=== PATIENT | male | born 1975 | race Caucasian/White ===

== ENCOUNTER 2018-02-05 15:35 | Emergency (ER) | payer OTHER, SELFPAY ==
--- NOTE | 2018-02-05 15:35 | DT_ITS ---
This patient was seen during an EMR downtime February 03, 2018 - February 10, 2018. This patient may have a combination of paper and electronic documentation or all paper documentation. All documentation is viewable within the e-chart portion of [employer] for each patient visit.
== END 2018-02-05 16:16 | disposition home or self-care (01) ==
LOC: ED 02-07 09:52
PROVIDERS: Emergency Provider Emergency Medicine; Family Provider Family Medicine; PCP Family Medicine
DX: M54.41 Lumbago with sciatica, right side (principal)
CPT/HCPCS: 99283

== ENCOUNTER 2018-06-30 18:30 | Outpatient (RCR) | payer OTHER, SELFPAY ==
--- NOTE | 2018-03-03 14:55 | HP.PTEVAL_ITS ---
Patient's Visit Information ALESSANDRO ALEMAN is a 43 year old M referred to Physical Therapy by Sindi Carson, with a diagnosis of HNP lumbar; acute lumbar radiculopathy. Date of Evaluation: 03/03/18 Physical Therapist: Kathy Guerrero, PT - Visit Plan Frequency: 2x /Week Duration: 4 Weeks Plan: Physician Order on 02/27/18: Begin lumbar isometrics. Advance ROM as tolerated after 3 weeks. Wean from lumbar brace as tolerated. Theraband HEP. Patient plans to go on vacation for a week and would like HEP to perform while gone at next visit. Therapeutic exercises and activities targeting BLE, core and low back strength, endurance and range of motion. Gait training for improved ambulation and stair negotiation. Modalities and Manual as needed to decrease pain and increase ROM. Incorporate HEP to promote maintainence and independence. - Subjective Subjective: Patient presents in therapy with low back pain secondary to lumbar microdiscectomy bilateraly L4-L5 on 02/11/2018. Patient states he is feeling well and not really pain much more than numbness, tingling feeling in RLE down to toes and heel. He is ambulating with a cane in L hand but prior to surgery he was independent no AD. States he takes tylenol occasionally and ices twice a day for pain. Reports he is having difficulty walking, stair climbing and sitting for longer duraitons. - Pain low back Pain Intensity (Out of 10): 2 Pain Intensity Range: Unrated Comment: sensation feels odd not painful - Objective Appearance: Wearing lumbar supportive brace. Posture: Sitting slouched on mat with trunk lean toward the left; Static standing with cane and trunk shifted to the left and hips toward the right. Gait: Patient ambulating with a heel/toe foot progression with cane in left hand with trunk lean toward left and hips toward the right. Educated on getting taller cane; Stair negotiation step to pattern with rail up/down with right foot leading down and left foot leading up. Strength: RLE grossly 4/5 strength except hip abduction 4-/5, knee flexion 3+/5, PF 3+/5 and knee extension 4-/5; LLE grossly 5/5 except 4/5 hip abduction and 4/5 knee flexion; core strength grossly 3+/5 and low back grossly 3+/5. Flexibility: Hamstrings moderate tightness R -25* knee extension and L -30* knee extension. ROM: Lumbar brace on during testing; Moderate limitation in all planes lumbar motion. Full ROM not tested until 3 weeks per physician order. Palpation: Tenderness to palpation along bilateral lumbar paraspinals. Bilateral ASIS equal, ischial tub equal and medial malleoli equal. - Goals Goal 1:: Patient will increase low back and core strength by 1 muscle grade for improved posture and performance with functional mobility. Goal Time Frame: 4-6 Weeks Goal 2:: Patient will increase BLE grossly 5/5 for improved functional mobility Goal Time Frame: 4-6 Weeks Goal 3:: Patient will ambulate independently with equal WB through BLE and without sensation of RLE leg giving out Goal Time Frame: 4-6 Weeks Goal 4:: Patient will increase lumbar ROM in all planes for improved mobility Goal Time Frame: 4-6 Weeks Goal 5:: Patient will increase hamstring flexibility by 10* for improved mobility Goal Time Frame: 4-6 Weeks - Rehabilitation Potential Physical Therapy Diagnosis: Muscle Weakness, Limited Range of Motion Rehabilitation Potential: Good - Anticipated Interventions Patient/Client Instruction: Educate patient on: Condition, Plan of Care For the Purpose of:: To decrease pain, To increase ROM, To improve muscle performance and motor function, To improve ability of physical actions for home/ community/work/leisure, To improve gait and locomotor functions, To increase flexibility/ROM, To improve endurance Therapeutic Exercise to Include: Strength training, Endurance training, Body mechanics, Postural training, Flexibilty training, Gait and locomotor training, Passive ROM, Active ROM, Dynamic Lumbar Stabilization For the Purpose of:: To increase ROM, To improve muscle performance and motor function, To improve ability of physical actions for home/community/work/leisure , To improve gait and locomotor functions, To increase flexibility/ROM, To improve endurance Functional Training to Include: ADL Training, Gait training For the Purpose of:: To improve muscle performance and motor function, To improve ability of physical actions for home/community/work/leisure, To improve gait and locomotor functions For the Purpose of:: To decrease pain, To increase ROM, To increase flexibility/ ROM Iontophoresis (with Dexamethozone, with Acetic acid): No - not covered For the Purpose of:: To decrease pain, To increase ROM, To increase flexibility/ ROM Thank you for the opportunity to evaluate your patient. For Medicare and Medicare HMO plans, please review the plan of care and approve it. It will need to be FAXED BACK to us at [phone] for Medicare purposes. Please let me know if there are questions or concerns regarding this plan of care. Physician Signature: Date:
--- NOTE | 2018-09-10 13:51 | HP.PTDCNRP_ITS ---
HP - Discharge Summary (1) - Patient Information ALESSANDRO ALEMAN was seen in my office for initial evaluation on 03/03/18. The following Plan of Care was established for this patient: Initial Frequency: 2x /Week Initial Duration: 4 Weeks - Anticipated Interventions Patient/Client Instruction: Educate patient on: Condition, Plan of Care For the Purpose of:: To decrease pain, To increase ROM, To improve muscle performance and motor function, To improve ability of physical actions for home/community/work/leisure, To improve gait and locomotor functions, To increase flexibility/ROM, To improve endurance Therapeutic Exercise to Include: Strength training, Endurance training, Body mechanics, Postural training, Flexibilty training, Gait and locomotor training, Passive ROM, Active ROM, Dynamic Lumbar Stabilization For the Purpose of:: To increase ROM, To improve muscle performance and motor function, To improve ability of physical actions for home/community/work/l eisure, To improve gait and locomotor functions, To increase flexibility/ROM, To improve endurance Functional Training to Include: ADL Training, Gait training For the Purpose of:: To improve muscle performance and motor function, To improve ability of physical actions for home/community/work/leisure, To improve gait and locomotor functions For the Purpose of:: To decrease pain, To increase ROM, To increase flexibility/ROM Iontophoresis (with Dexamethozone, with Acetic acid): No - not covered For the Purpose of:: To decrease pain, To increase ROM, To increase flexibility/ROM This patient was last seen in our office 06/30/18. Pertinent comments regarding their Physical therapy will appear below: Patient seen for PT for HNP ,lumbar radiculopathy which patient underwent s/p lumbar disectomy . Patient PT focused on strengthening BLE,DLS,LUMBAR ROM ,LE flexabilitY. Patient made good progess with increasing strength and improving gait,ROM for function of recovery thus is d/c. At this point I will be discontinuing this patient from physical therapy. I would be happy to see this patient again in the future if found appropriate by the physician. Thank you! Bill Rahman, PT, Cert MDT, OCS
== END 2018-06-30 19:00 | disposition home or self-care (01) ==
LOC: PT 18:30
PROVIDERS: Family Provider Family Medicine; PCP Family Medicine; Visit Provider Nurse Practitioner Acute Care
DX: M51.26 Other intervertebral disc displacement, lumbar region (principal); M54.16 Radiculopathy, lumbar region
CPT/HCPCS: 97110; 97162; 97530

== ENCOUNTER 2019-03-10 10:30 | Outpatient (RCR) | payer OTHER, SELFPAY ==
--- NOTE | 2019-01-09 07:28 | HP.PTEVAL_ITS ---
Patient's Visit Information ALESSANDRO ALEMAN is a 43 year old M referred to Physical Therapy by ALDA CasperC with a diagnosis of OTHER SPECIFIED AFTERCARE FOLLOWING SURGERY. Date of Evaluation: 01/08/19 Physical Therapist: Bill Rahman PT, Cert MDT, OCS - Visit Plan Frequency: 2x /Week Duration: 4 Weeks Plan: INTERVENTIONS PROGRESSIVE DLS,POSTURAL EX'S,LE FLEXABLITY ,G-S STRENGTHENING RIGHT - Subjective Findings: This 43 y/o male presents physical therapy with lumbar microdisectomy bilateral L4-5 on 02/11/18. Patient had PT which went well. But ,during December working on [employer] noticed next day developed soreness. So,seen Dr recommended . No diagnostics /MEDS. Recommended PT . Patient denies parathesia/tingling. Overall ,getting stronger right leg ,atlough right calf is still weak. Patient goals to gett stronger ,and prevention for director long term care.Patient symptoms affect QOL and function. SOCIAL: . VOCATION: Teacher ,coaches basketball,football - Objective POSTURE : WFL. GAIT: reciprocal pattern. NEURO: intact ,denies parathesia/tingle,reflexes 2/3. FLEXABLITY: hams mod tigh. SYMMTRIES : align. PALPATION: unremarkable. MMT: 5/5 ,except right G-S 3/5. LUMBAR ROM: flexion min loss,extension min loss,side glides min loss - Special Tests L/S Slump test left side: Negative L/S Slump test right side: Negative L/S Left Straight Leg Raise: Negative L/S Right Straight Leg Raise: Negative Lumbar Standing: Flexion - Mechanical Response: No effect Lumbar Standing: Flexion - Symptoms During Testing: No effect Lumbar Standing: Flexion - Symptoms After Testing: No effect Lumbar Standing: Extension - Mechanical Response: No effect Lumbar Standing: Extension - Symptoms During Testing: No effect Lumbar Standing: Extension - Symptoms After Testing: No effect - Goals Goal 1:: Independant with HEP. Goal Time Frame: 4-6 Weeks Goal 2:: Independant with posture/body mechanics for prophalaxis. Goal Time Frame: 4-6 Weeks Goal 3:: Patient to improve lumbar ROM for function of recovery Goal Time Frame: 4-6 Weeks Goal 4:: Patient to be d/c to prophalaxis Goal Time Frame: 4-6 Weeks Goal 5:: Patient to improve dash disability score by 5 points. Goal Time Frame: 4-6 Weeks - Rehabilitation Potential Physical Therapy Diagnosis: This lumbar microdisectomy bilateral L4-5 02/11/18 Rehabilitation Potential: Good - Anticipated Interventions Patient/Client Instruction: Educate patient on: Condition, Plan of Care For the Purpose of:: To decrease pain, To increase ROM, To improve muscle performance and motor function, To improve ability to perform ADL's, To increase tolerance to activity/condition/position, To improve ability of physical actions for home/community/work/leisure, To improve health of tissue, To decrease soft tissue restriction, To increase flexibility/ROM, To improve health and function, To improve ability to perform tasks related to life management Therapeutic Exercise to Include: Strength training, Body mechanics, Postural training, Flexibilty training, Dynamic Lumbar Stabilization For the Purpose of:: To increase ROM, To improve muscle performance and motor function, To improve ability to perform ADL's, To increase tolerance to activity/condition/position, To improve ability of physical actions for home/community/work/leisure, To improve health of tissue, To decrease soft tissue restriction, To increase flexibility/ROM, To improve ability to perform tasks related to life management Thank you for the opportunity to evaluate your patient. For Medicare and Medicare HMO plans, please review the plan of care and approve it. It will need to be FAXED BACK to us at [phone] for Medicare purposes. For Medicare only, by signing this I certify the plan of care. Please let me know if there are questions or concerns regarding this plan of care. Physician Signature: Date:
--- NOTE | 2019-03-10 11:12 | HP.PTDCSUM ---
HP - PT D/C Summary It has been my pleasure to treat ALESSANDRO ALEMAN under orders from Jihan Horner NP-C, for the diagnosis of OTHER SPECIFIED AFTERCARE FOLLOWING SURGERY for a total of 9 visit(s). Discharge Date: 03/10/19 Please see the following information for a summary of their discharge status. - Subjective Subjective: DOING WELL.. - Overall Improvement % Improvement: 100 - Objective Objective/Function: POSTURE: WFL. MMT: QUADS/HAMS/HIP 5/5,ANKLE DF 5/5,PF 4-/5. LUMBAR ROM: FLEXION MIN LOSS,EXTENSION MIN LOSS. -SLR - Goals Goal 1:: Independant with HEP. Goal Progress: Goal Met Goal 2:: Independant with posture/body mechanics for prophalaxis. Goal Progress: Goal Met Goal 3:: Patient to improve lumbar ROM for function of recovery Goal Progress: Goal Met Goal 4:: Patient to be d/c to prophalaxis Goal 5:: Patient to improve dash disability score by 5 points. - Plan Plan: D/C TO HEP - D/C Information Discharge Comments: HEP If there are questions or concerns regarding this patient's physical therapy, please feel free to call me at [phone]. Thank you for the referral of this patient. Sincerely, Bill Rahman, PT, Cert MDT, OCS
== END 2019-03-10 19:00 | disposition home or self-care (01) ==
LOC: PT 10:30
PROVIDERS: Family Provider Family Medicine; PCP Family Medicine; Referring Provider Nurse Practitioner; Visit Provider Nurse Practitioner
DX: Z48.89 Encounter for other specified surgical aftercare (principal)
CPT/HCPCS: 97110; 97161

== ENCOUNTER 2020-06-15 16:30 | Outpatient (RCR) | payer OTHER, SELFPAY ==
--- NOTE | 2020-04-27 16:52 | HP.PTEVAL ---
Patient's Visit Information ALESSANDRO ALEMAN is a 45 year old M referred to Physical Therapy by ADELFO Casper with a diagnosis of Acute LBP, R foot weakness.. Date of Evaluation: 04/27/20 Physical Therapist: Deep Narayan, DPT, OCS, CSCS - Visit Plan Frequency: 2x /Week Duration: 4-6 Weeks Plan: 2x/week fro 3-6 ... A1...LB A/PROM starting with extension but progressing to rotation and flexion with yoga stretches quickly as patient is extremely tight in LB and needs stretched. 2. rollout and stretch B HS. 3. core strength mat and gym and progress all to I. - Subjective Has chronic back problems. [place] good middle of last summer after therapy. This spring he did very little being stuck inside. Pain got worse in December for no apparent reason. hard to move. Walking made outside of R foot sore. Had therapy at [facility] over the summer. Improved in strength but still hard to stand really long as back pain kicks in low back. Will have MRI in a week or so. Pain is mostly right side back hip leg and foot. Had drop foot a couple years ago from back. Had surgery to clean up HNP 2 yrs ago but never got strength all the way back. Pain in the last week or so has been up to 8/10 in r LB. L heel gets painful newly over last 2 weeks. Worst lying in bed. R leg stillhurts much of time. Still weak in R ankle since surgery but no worse. On tylenol and steroids whcih have helped. 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 This is effected. Doig some ex from therapy in past pirifromis stretch HS stretch, bridging, pressups. - Pain R LB and hip Pain Intensity (Out of 10): 0 Pain Intensity Range: 0, 9 - Objective Walks and trasnitions slowly but I. LB AROM ext nil and tight/painful. SB tight contralaterally and min limited. Flexion slow and min limited in LB. reflexes 2/3 patella annd achilles. Sensation WNL to gross lgiht touch. - slump and SLR, but very tight R SLR vs left. Repeated PPU show improved motion quickly and NE to pain, slightly less stiff. HS max tight on R vs mod on L, -50 R and -40 L 90/90 test. Sacral sitter. - Goals Goal 1:: AROM acceptable in LB to 25 degree extension without feeling tightness. Goal Time Frame: 4-6 Weeks Goal 2:: Pain improved to 2/10 at worst and 75% improved. Goal Time Frame: 4-6 Weeks Goal 3:: Stadn at football practice 2 hours without increased pain. Goal Time Frame: 4-6 Weeks Goal 4:: Sleep without interruption and up in morning comfortably Goal Time Frame: 4-6 Weeks Goal 5:: I approp EHP to max motion and minimize future problems. Goal Time Frame: 4-6 Weeks - Rehabilitation Potential Physical Therapy Diagnosis: LBP ANR vs discal pathology Rehabilitation Potential: Fair - Anticipated Interventions Patient/Client Instruction: Educate patient on: Condition, Plan of Care For the Purpose of:: To decrease pain, To increase ROM, To improve muscle performance and motor function, To improve ability to perform ADL's, To increase tolerance to activity/condition/position Therapeutic Exercise to Include: Strength training, Body mechanics, Postural training, Passive ROM, Active ROM, Dynamic Lumbar Stabilization, Isra Exercises For the Purpose of:: To decrease pain, To increase ROM, To improve muscle performance and motor function, To increase tolerance to activity/condition/position, To improve ability of physical actions for home/community/work/leisure Manual Therapy Techniques to Include: Mobilization, Soft tissue mobilization For the Purpose of:: To decrease pain, To increase ROM, To improve muscle performance and motor function, To increase tolerance to activity/condition/position Thermo therapy (hot pack): Yes For the Purpose of:: To increase ROM Thank you for the opportunity to evaluate your patient. For Medicare and Medicare HMO plans, please review the plan of care and approve it. It will need to be FAXED BACK to us at [phone] for Medicare purposes. For Medicare only, by signing this I certify the plan of care. Please let me know if there are questions or concerns regarding this plan of care. Physician Signature: Date:
--- NOTE | 2020-06-15 16:46 | HP.PTDCSUM_ITS ---
It has been my pleasure to treat ALESSANDRO ALEMAN referred by Jihan Horner, DANYEL- Brian, with the diagnosis of Acute LBP, R foot weakness. for a total of 11 visit(s). Discharge Date: 06/15/20 Please see the following information for a summary of their discharge status. Subjective: Met with doctor Last week to melissa at MRI of bulging disc and needs surgery. Microdiscectomy on Saturday. This is a revision of old surgery. Feels like he hurt it working on [employer] this spring. Back sore afterward. Did not keep exercising after therapy last time. Therapy helped with strength but pain has been up and down. Transitioning much easier,bending still challenging. Shooting pain 7-8/10 with bending after practice. 1/10 stiffness currently. Sleep is OK. R LB and hip Pain Intensity (Out of 10): 5 left LB hip Pain Intensity (Out of 10): 1 % Improvement: 40 Objective/Function: ROM flexiona dn ext L/S very limited adn hesitant. Increased pain with flexion and stiffness with ext. SB are slow but decent ROM. Bends at back not legs to touch floor. Slowly. Walks and transitions slow and careful. R DF strength 4+vs 5 on L. Goal 1:: AROM acceptable in LB to 25 degree extension without feeling tightness. Goal Progress: Not Progressing Goal 2:: Pain improved to 2/10 at worst and 75% improved. Goal Progress: Not Progressing Goal 3:: Stadn at football practice 2 hours without increased pain. Goal 4:: Sleep without interruption and up in morning comfortably Goal Progress: Goal Met Goal 5:: I approp EHP to max motion and minimize future problems. Goal Progress: Goal Met, not heping. Plan: d/c, pt to have surgery Saturday and dean wait being sent back when appropriate. Discharge Comments: Pt to have surgery on Saturday. If there are questions or concerns regarding this patient's physical therapy, please feel free to call me at [phone]. Thank you for the referral of this patient. Sincerely, Deep Narayan, DPT, OCS, CSCS
== END 2020-06-15 19:00 | disposition home or self-care (01) ==
LOC: PT 16:30
PROVIDERS: PCP Family Medicine; Referring Provider Nurse Practitioner; Visit Provider Nurse Practitioner
DX: R29.898 Other symptoms and signs involving the musculoskeletal system (principal); M54.5 Low back pain
CPT/HCPCS: 97110; 97162; 97164

== ENCOUNTER 2020-08-09 15:00 | Outpatient (RCR) | payer OTHER, SELFPAY ==
--- NOTE | 2020-07-04 15:20 | HP.PTEVAL_ITS ---
Patient's Visit Information ALESSANDRO ALEMAN is a 45 year old M referred to Physical Therapy by Dr. Raheem Guerrero DO with a diagnosis of HNP s/p laminectomy and discectomy 06/20. Date of Evaluation: 07/04/20 Physical Therapist: Deep Narayan, DPT, OCS, CSCS - Visit Plan Frequency: 2-3x /Week Duration: 4-6 Weeks Plan: 2-3x/week for 4 weeks for... 1. LB ROM starting 07/22. 2. isometric core strength. 3. eversion strength R ankle. 4. stretch HS and quads B. 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 - Subjective Had low back surgery 06/20 laminectomy, discectomy. Precautions include no lifting one month, no bending twisting etc. Pain is none at rest. If istis to omuch and chair hits incision wrong it will hurt. No problems in legs. Has not lifted or walked. No HEP. Has brace that he is in most of day when out and about. 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 Sat most of day to today. 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 Games start early August. Basic ADls are getting done at home slowlya dn carefully. Has done some knee to chest in bed. - Pain LBP Pain Intensity (Out of 10): 0 Pain Intensity Range: 0, 3 - Objective Walks slow but steaadya dn I. Trasnfers using UE I. Steps reciprocal up and down. L/S AROM ext mod limited, flexion slow and hesitant. SB mod limited and all are painfree. HS adn quad max tight at -35 90/90 test B adn - SLR. R eversion strength is 4- vs 4+ L, otherwise ankles are 4+ B. PF heel raises tougheer on r than L but functional. Knee strength 5/5, hip strength 4+ B without pain. Incision is healed and dry, no excessive redness, heat or swelling. 2 small dry scabs. No tenderness in lumbar paraspinals or gluts today unusuallly. - Goals Goal 1:: Pt able to wrok all day at school without noticing back limitations Goal Time Frame: 4-6 Weeks Goal 2:: Pt have near full L/S aROM without pain and 90% back to normal. Goal Time Frame: 4-6 Weeks Goal 3:: I approp HEP/gym to minimize future probems. Goal Time Frame: 4-6 Weeks Goal 4:: oswestry score 10 or less LB. Goal Time Frame: 4-6 Weeks - Rehabilitation Potential Physical Therapy Diagnosis: HNP s/p surgery. Rehabilitation Potential: Good - Anticipated Interventions Patient/Client Instruction: Educate patient on: Condition, Plan of Care For the Purpose of:: To decrease pain, To increase ROM, To improve muscle performance and motor function, To improve performance and independence with ADL's, To improve ability of physical actions for home/community/work/leisure Therapeutic Exercise to Include: Strength training, Postural training, Flexibilty training, Gait and locomotor training, Neuromotor development, Passive ROM, Active ROM, Dynamic Lumbar Stabilization For the Purpose of:: To decrease pain, To increase ROM, To improve muscle performance and motor function, To increase tolerance to activity/cond ition/position, To improve ability of physical actions for home/community/work/leisure Cryotherapy (ice pack, ice massage): Yes For the Purpose of:: To decrease pain Thank you for the opportunity to evaluate your patient. For Medicare and Medicare HMO plans, please review the plan of care and approve it. It will need to be FAXED BACK to us at [phone] for Medicare purposes. For Medicare only, by signing this I certify the plan of care. Please let me know if there are questions or concerns regarding this plan of care. Physician Signature: Date:
--- NOTE | 2020-08-09 16:16 | HP.PTDCSUM ---
It has been my pleasure to treat ALESSANDRO ALEMAN referred by Dr. Raheem Guerrero DO, with the diagnosis of HNP s/p laminectomy and discectomy 06/20 for a total of 10 visit(s). Discharge Date: 08/09/20 Please see the following information for a summary of their discharge status. Subjective: Feeling pretty good today. No pain or soreness after last session. Handling practices well. LBP Pain Intensity (Out of 10): 0 % Improvement: 70 Objective/Function: Great tolerance to all of the above range of motion,strength and stabilization activtiies. 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 Goal Progress: Goal Met Goal 3:: I approp HEP/gym to minimize future probems. Goal Progress: Goal Met Goal 4:: oswestry score 10 or less LB. Goal Progress: Goal Met Plan: Continue functional core strength and ROM LB progression to tolerance. work toward pigeon pose with assist. If there are questions or concerns regarding this patient's physical therapy, please feel free to call me at [phone]. Thank you for the referral of this patient. Sincerely, Deep Narayan, DPT, OCS, CSCS
== END 2020-08-09 19:00 | disposition home or self-care (01) ==
LOC: PT 15:00
PROVIDERS: PCP Family Medicine; Referring Provider Orthopaedic Surgery; Visit Provider Orthopaedic Surgery
DX: M51.26 Other intervertebral disc displacement, lumbar region (principal); M54.16 Radiculopathy, lumbar region
CPT/HCPCS: 97110; 97161; 97164

== ENCOUNTER 2022-01-11 17:30 | Outpatient (RCR) | payer OTHER, SELFPAY ==
--- NOTE | 2021-12-22 09:58 | HP.PTEVAL_ITS ---
Patient's Visit Information ALESSANDRO ALEMAN is a 46 year old M referred to Physical Therapy by Dr. Joel Khan MD with a diagnosis of R ankle contracture, weakness.. Date of Evaluation: 12/22/21 Physical Therapist: Deep Narayan, TEODORA, OCS, CSCS - Visit Plan Frequency: 2x /Week Duration: 3 Weeks Plan: 2x/week x 3 weeks for. 1. ensure home band Df, ev OTB strength, SLS, heel raises and gastroc soleus stretch going well. 2. Please do ankle DF and eversion strength with ankle isolator, functional ankle strength and rollout R gastroc soleus and stretch. - Subjective When i am walking I walk on the outside of my foot R. It bothers him when he walks alot. saw foot doctor. H/o back problems but it is not bad right now. Stretches it alot. Doctor gave insoles to support foot. Has been on them a couple days and might help a little. Also wants therapy. Gets pain in R ankle if on it alot laterally. 5/10 and goes away with sitting. 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 enjoys walking outside and wants to be able to do that effectively. Sleep is OK. Has not done a lot of strengthening for back at school but stretches alot and uses bands. Continues to do bugs and supine prone ex core strength also. R weak ankle ever since back surgery. - Pain R ankle Pain Intensity (Out of 10): 0 Pain Intensity Range: 0, 6 - Objective Walks normal , some outside of foot WB noticeable on R vs L, no antalgia, slight weakness in pushoff R. Orthotics in and foot psoition in them is good. has slight pes cavus without orthotics and mild r hindfoot varus. Tightness obvious in gastroc and soleus R vs L. -3 active DF 0 passive DF on r vs 3 degrees on L. Full DF shows inversion moment on R. Inv and eversion adn PF ROM full B. reflexes 1/3 patella and achilles B. Strength 14 # eversion R and 30 DF PF is bearly able to heel raise on R. L side is 5/5 and R inversion 5/5. Able to walk on toes but weaker R. Patient will invert R if walks too far. - Balance/Special Test Scores Lower Extremity Functional Score: 57 - Goals Goal 1:: Walk 1 hour without ankle pain or problems with position Goal Time Frame: 4-6 Weeks Goal 2:: Patient I in management of condtiion Goal Time Frame: 4-6 Weeks Goal 3:: patient feel 75% better. Goal Time Frame: 4-6 Weeks Goal 4:: 60# DF and 22 eversion R strength to show improvement. Goal Time Frame: 2-4 Weeks - Rehabilitation Potential Physical Therapy Diagnosis: R foot walking difficulty. Rehabilitation Potential: Good - Anticipated Interventions Patient/Client Instruction: Educate patient on: Condition, Plan of Care For the Purpose of:: To decrease pain, To increase ROM, To improve muscle performance and motor function, To increase tolerance to activity/condition/posi tion Therapeutic Exercise to Include: Strength training, Flexibilty training, Passive ROM, Active ROM For the Purpose of:: To decrease pain, To increase ROM, To improve muscle performance and motor function, To increase tolerance to activity/condition/position, To improve ability of physical actions for home/community/work/leisure Manual Therapy Techniques to Include: Mobilization, Passive ROM, Soft tissue mobilization For the Purpose of:: To decrease pain, To increase ROM, To improve muscle per formance and motor function Thank you for the opportunity to evaluate your patient. For Medicare and Medicare HMO plans, please review the plan of care and approve it. It will need to be FAXED BACK to us at [phone] for Medicare purposes. For Medicare only, by signing this I certify the plan of care. Please let me know if there are questions or concerns regarding this plan of care. Physician Signature: Date:
--- NOTE | 2022-01-11 18:18 | HP.PTDCSUM ---
It has been my pleasure to treat ALESSANDRO ALEMAN referred by Dr. Joel Khan MD, with the diagnosis of R ankle contracture, weakness. for a total of 6 visit(s). Discharge Date: 01/11/22 Please see the following information for a summary of their discharge status. Subjective: Doesn't seem to be bothering him as much. Walked a couple miles today and felt better than typically.Feels a lot stronger. R ankle Pain Intensity (Out of 10): 0 % Improvement: 30 Objective/Function: 51# DF. 5# eversion. neutral Df to 0 degrees then starts to turn in. Walking well today without unusual deviations. pt happy with progress and feels like he can continue on his own. Educated on need to to take care on uneven surfaces even possibly getting brace for hiking situations. Goal 1:: Walk 1 hour without ankle pain or problems with position Goal Progress: Goal Met Goal 2:: Patient I in management of condtiion Goal Progress: Goal Met Goal 3:: patient feel 75% better. Goal Progress: Progressing Goal 4:: 60# DF and 22 eversion R strength to show improvement. Goal Progress: Progressing Plan: d/c to HEP Discharge Comments: To continue via HEP If there are questions or concerns regarding this patient's physical therapy, please feel free to call me at [phone]. Thank you for the referral of this patient. Sincerely, Deep Narayan, DPT, OCS, CSCS Balance/Gait/Functional tests - Balance/Special Test Scores Lower Extremity Functional Score: 60
== END 2022-01-11 19:00 | disposition home or self-care (01) ==
LOC: PT 17:30
PROVIDERS: PCP Family Medicine; Referring Provider Orthopaedic Surgery; Visit Provider Orthopaedic Surgery
DX: M24.571 Contracture, right ankle (principal); M21.6X1 Other acquired deformities of right foot; R29.898 Other symptoms and signs involving the musculoskeletal system
CPT/HCPCS: 97110; 97161; 97164

== ENCOUNTER → 2022-01-26 | Outpatient (CLI) | payer OTHER, SELFPAY ==
[2022-01-26 17:41] LABS: Absolute Lymphocyte Count 1.64 X10^3/uL (0.83-4.51); Absolute Neutrophil Count 2.3 X10^3/uL (2.0-7.7); Basophil# 0.04 X10^3/uL; Basophil% 0.9 % (0-1); Eosinophils% 4.3 % (0-5); Hematocrit 42.7 % (40-54); Lymphocyte # 1.64 X10^3/ul (0.83-4.51); Lymphocyte % 35.7 % (19-41); Mean Corp Hgb Conc 32.8 g/dL (32-36); Mean Corpuscular Hgb 27.7 pg (27.0-32.0); Mean Corpuscular Volume 84.6 fL (80-94); Mean Platelet Vol. 10.3 fl (6.2-12.0); Monocyte# 0.46 X10^3/uL; NRBC Flagged by Analyzer 0 % (0-5); Neutrophil # 2.25 X10^3/uL (2.7-7.7); Neutrophil % 48.9 % (47-70); Platelet Count 270 K/mm3 (150-450); RBC Distribution Width CV 13.5 % (11.6-14.6); RBC Distribution Width SD 41.4 fl (35.1-43.9); Red Blood Count 5.05 M/mm3 (4.6-6.2); White Blood Count 4.6 K/mm3 (4.4-11.0)
[2022-01-26 18:28] LABS: ALB/GLOB Ratio 1.1 RATIO (0.9-2.4); AST(SGOT) 22 U/L (15-37); Alanine Aminotransfer ALT/SGPT 36 U/L (16-61); Albumin, Serum 3.9 g/dL (3.2-5.0); Alkaline Phosphatase 40 U/L (45-117); Anion Gap 5 (5-15); BUN 23 mg/dL (7-18); BUN/Creat Ratio 18.9 RATIO (10-20); Calcium,Total 9.4 mg/dL (8.5-10.1); Chloride 108 mmol/L (98-107); Cholesterol 134 mg/dL (200); Creatinine, Serum 1.22 mg/dL (0.70-1.30); EST Glomerular Filtration Rate 67 mL/min (>60); Est Glom Filt Rate - Afr Amer 81 mL/min (>60); Globulin 3.4 g/dL (2.2-4.2); Glucose 85 mg/dL (74-106); High Density Lipoprotein 49 mg/dL; Potassium 4.5 mmol/L (3.5-5.1); Protein, Total 7.3 g/dL (6.4-8.2); Sodium Level 139 mmol/L (136-145); Thyroid Stim Hormone (TSH) 1.07 uIU/mL (0.358-3.74); Triglycerides 71 mg/dL; Very Low Density Lipoprotein 14 mg/dL (5-40)
== END | disposition home or self-care (01) ==
LOC: MFPLAB 14:29
PROVIDERS: Family Medicine; PCP Family Medicine; Referring Provider Family Medicine; Visit Provider Family Medicine
DX: Z00.00 Encounter for general adult medical examination without abnormal findings (principal)
CPT/HCPCS: 36415; 80053; 80061; 84443; 85025

== ENCOUNTER → 2023-02-05 | Outpatient (CLI) | payer OTHER, SELFPAY ==
[2023-02-05 09:56] LABS: Absolute Lymphocyte Count 1.64 X10^3/uL (0.83-4.51); Absolute Neutrophil Count 1.8 X10^3/uL (2.0-7.7); Basophil# 0.06 X10^3/uL; Basophil% 1.4 % (0-1); Eosinophil# 0.24 X10^3/uL; Eosinophils% 5.7 % (0-5); Hematocrit 45.7 % (40-54); Hemoglobin 14.7 g/dL (13.0-16.5); Lymphocyte # 1.64 X10^3/ul (0.83-4.51); Lymphocyte % 39.2 % (19-41); Mean Corp Hgb Conc 32.2 g/dL (32-36); Mean Corpuscular Hgb 27.3 pg (27.0-32.0); Mean Corpuscular Volume 84.9 fL (80-94); Mean Platelet Vol. 9.9 fl (6.2-12.0); Monocyte# 0.43 X10^3/uL; Monocyte% 10.3 % (0-10); NRBC Flagged by Analyzer 0 % (0-5); Neutrophil # 1.79 X10^3/uL (2.7-7.7); Neutrophil % 42.9 % (47-70); Platelet Count 243 K/mm3 (150-450); RBC Distribution Width CV 13.7 % (11.6-14.6); RBC Distribution Width SD 42.7 fl (35.1-43.9); Red Blood Count 5.38 M/mm3 (4.6-6.2); White Blood Count 4.2 K/mm3 (4.4-11.0)
[2023-02-05 10:41] LABS: Hemoglobin A1c 5.4 % (3.8-5.6)
[2023-02-05 10:53] LABS: ALB/GLOB Ratio 1.1 RATIO (0.9-2.4); AST(SGOT) 17 U/L (15-37); Alanine Aminotransfer ALT/SGPT 32 U/L (16-61); Albumin, Serum 3.7 g/dL (3.2-5.0); Alkaline Phosphatase 43 U/L (45-117); Anion Gap 3 (5-15); BUN 32 mg/dL (7-18); BUN/Creat Ratio 29.4 RATIO (10-20); Calcium,Total 9.3 mg/dL (8.5-10.1); Chloride 112 mmol/L (98-107); Cholesterol 150 mg/dL (200); Creatinine, Serum 1.09 mg/dL (0.70-1.30); EST Glomerular Filtration Rate 76 mL/min (>60); Est Glom Filt Rate - Afr Amer 92 mL/min (>60); Globulin 3.4 g/dL (2.2-4.2); Glucose 90 mg/dL (74-106); High Density Lipoprotein 49 mg/dL; PSA,Total - Annual Screen 4.12 ng/mL (0.00-4.00); Potassium 4.9 mmol/L (3.5-5.1); Protein, Total 7.1 g/dL (6.4-8.2); Sodium Level 141 mmol/L (136-145); Thyroid Stim Hormone (TSH) 1.21 uIU/mL (0.358-3.74); Triglycerides 90 mg/dL; Very Low Density Lipoprotein 18 mg/dL (5-40)
== END | disposition home or self-care (01) ==
LOC: MFPLAB 09:10
PROVIDERS: PCP Family Medicine; Visit Provider Family Medicine
DX: Z13.0 Encounter for screening for diseases of the blood and blood-forming organs and certain disorders involving the immune mechanism (principal); Z13.29 Encounter for screening for other suspected endocrine disorder; Z12.5 Encounter for screening for malignant neoplasm of prostate; Z13.220 Encounter for screening for lipoid disorders; Z13.1 Encounter for screening for diabetes mellitus
CPT/HCPCS: 36415; 80053; 80061; 83036; 84153; 84443; 85025; G0103

== ENCOUNTER → 2023-02-21 | Outpatient (CLI) | payer OTHER, SELFPAY | END | disposition home or self-care (01) | LOC: MFPLAB 12:22 | PROVIDERS: PCP Family Medicine; Visit Provider Family Medicine | DX: R97.20 Elevated prostate specific antigen [PSA] (principal) | CPT/HCPCS: 36415; 84153; 84154 ==

== ENCOUNTER → 2023-04-08 | Outpatient (CLI) | payer OTHER, SELFPAY ==
[2023-04-08 10:18] LABS: PSA,Total- Diagnostic 3.17 ng/mL (0.0-4.0)
[2023-04-09 12:08] LABS: PSA, Free % 18.3 % (.)
== END | disposition home or self-care (01) ==
PROVIDERS: PCP Family Medicine; Referring Provider Family Medicine; Visit Provider Family Medicine
DX: R97.20 Elevated prostate specific antigen [PSA] (principal)
CPT/HCPCS: 36415; 84153; 84154

== ENCOUNTER 2023-07-23 15:30 | Outpatient (RCR) | payer OTHER, SELFPAY ==
--- NOTE | 2023-05-13 09:52 | HP.PTEVAL ---
Patient's Visit Information Visit Information Visit Information: ALESSANDRO ALEMAN is a 48 year old M referred to Physical Therapy by LEI JACOBSON with a diagnosis of Congenital stenosis of lumbar. Date of Evaluation: 05/13/23 Physical Therapist: Deep Narayan, ALBANT, OCS, CSCS Visit Plan Frequency: 2x /Week Duration: 4-6 Weeks Plan: 2x/week for 4-6 weeks for 1. Postural focus with lumbar lordosis and towel roll to stabilize deviation in lumbar area 2. Gloria R SGIS to ext ex and progression of forces to limit symptoms and postural deviaitons, mobs as needed.(PA vs Side) 3. DLS in neutral postiion to HEP(pt already doing HS stretch , calf stretch, bridging, cat camel, PPU and R SGIS) TENS and ice if needed HEP reviewed with patinet today: R SGIS to maintain neutral spine position and at least every two hours, Posture with towel roll, activity mod to avoid sitting and standing and keep moving in upright position, avoid FW bending. Subjective Subjective: Back started hurting again recently. Always been sore stiff in am. Has been stretching every morning for years. This summer was good, Hiked in [place] and played golf all summer. 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 Getting up out of chair feels like he is sideways. LBP moved down into R leg in quad/thigh. Symptoms are worse with standing, sitting in chair is painfree. Feels crooked to stand and move. bending is problematic. Has to brace self to bend over as he is leary of pain. H/o microdiscectomy in 2017 and 2019. Both of which helped. Stretches in am include HS supine with band, ITB with band, bridges, bugs, pressups, cat /camel, gastroc stretches. Stiff in am until stretches, then worse again later in day. 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 Basic ADLs getting done slowly and stiff Pain LBP and R leg: Pain Intensity (Out of 10): 0 Pain Intensity Range: 0 and 5 Comment: 0 sitting, later in day worse. Objective Objective: L deviation in stance upon arising from chair of pelvis. Deviates L with back bending. Slow but I exit from chair, labored. Walks I into PT. Lumbar aROM ext mod limited and L deviation. SB are min limited, flexion slow and hesitant but not painful, deviates L. - SLR, - slump. Sitting posture is posteriorly tilted in pelvis and kyphotic in lumbar region until cued. [id number] 1/3 patella adn achilles Sensation LE WNL to gross light touch. strength hips 4- and knees 4+ and ankles 4+ without myotomal problems. Balance/Special Test Scores Oswestry Low Back Score: 13 Goals Goal 1:: patient walk into therapy without a L deviation Goal Time Frame: 2 Weeks Goal 2:: pain in LB 75% better and 1/10 at worst Goal Time Frame: 4-6 Weeks Goal 3:: I appropriate strength DLS and posture to manage condition Goal Time Frame: 4-6 Weeks Goal 4:: Pt able to get out of bed and chair without hesitation Goal Time Frame: 4-6 Weeks Goal 5:: oswestry score 4 or better Goal Time Frame: 4-6 Weeks Rehabilitation Potential Physical Therapy Diagnosis: LBP likely discal pathology limiting funciton and comfort. Rehabilitation Potential: Fair Anticipated Interventions Patient/Client Instruction: Educate patient on: Condition and Plan of Care For the Purpose of:: To decrease pain, To decrease swelling/inflammation, To increase ROM, To improve nutrient delivery to tissue, To improve muscle performance and motor function and To increase tolerance to activity/condition/position Therapeutic Exercise to Include: Strength training, Postural training, Flexibilty training, Passive ROM and Active ROM For the Purpose of:: To decrease pain, To decrease swelling/inflammation, To increase ROM, To improve nutrient delivery to tissue, To improve muscle performance and motor function, To improve ability of physical actions for home/community/work/leisure and To improve gait and locomotor functions Manual Therapy Techniques to Include: Mobilization and Passive ROM For the Purpose of:: To decrease pain, To increase ROM and To improve nutrient delivery to tissue TENS: Yes (LB) Cryotherapy (ice pack, ice massage): Yes For the Purpose of:: To decrease pain Text: Thank you for the opportunity to evaluate your patient. For Medicare and Medicare HMO plans, please review the plan of care and approve it. It will need to be FAXED BACK to us at [phone] for Medicare purposes. For Medicare only, by signing this I certify the plan of care. Please let me know if there are questions or concerns regarding this plan of care. Physician Signature: Date:
--- NOTE | 2023-06-26 17:00 | HP.PTREVAL ---
Re-Evaluation Intro: LEI JACOBSON, It has been my pleasure to treat ALESSANDRO ALEMAN over the last 11 visits for Congenital stenosis of lumbar. Please see the progress note below for an update on the physical therapy plan of care! Subjective Subjective: Can loosen up pretty good with side glide ex and not really limited with home activity once he does. However, sitting >5 minutes will usually make him stiff and might make him crooked although he notices this less. to Dr. Guerrero in July. once correctex, not really a problem with life. Sitting at desk can loosen up with exercises. Bending is slow and limited. Objective Objective/Function: Still crummy [posteriorly tilted pelvis and flexion moment in lumbar area in sitting in the waiting room on phone. Still R deviation slightly in stance and corrected with SGIS. Sitting multiple times today with towel roll and lordosis maintained and gets up much easier. First flexion in stand was slow and avoided R side but 10th was fast and easy and without ext deficits or SB deficits afterwards. same and new goals and fair to questionable prognosis. Pt to doctor in 6 weeks and cannot get in sooner so will continue PT until something changes there or progress halts. Plan Plan Plan: POC 2x/week for 4 weeks... 1. please get more aggressive with gym based jena and db ex for core strength in neutral spine and work to I at gym. 2. Please experiment with flexion stretches and yoga stretches for LB scarring and HS I gave him flex in standing to add to HEP today 10x in evening and PPU or eis afterwards. Montior his progress with straightness in this ex. Balance/Gait/Functional tests Balance/Special Test Scores Oswestry Low Back Score: 13 Goals Goals Goal 1:: patient walk into therapy without a L deviation Goal Time Frame: 2-4 Weeks Goal Progress: not completely, approp Goal 2:: pain in LB 75% better and 1/10 at worst Goal Time Frame: 4-6 Weeks Goal Progress: 50%, appropriate. Goal 3:: I appropriate strength DLS and posture to manage condition Goal Time Frame: 4-6 Weeks Goal Progress: needs gym, approp Goal 4:: Pt able to get out of bed and chair without hesitation Goal Time Frame: 4-6 Weeks Goal Progress: Goal Met in clinic Goal 5:: oswestry score 4 or better Goal Time Frame: 4-6 Weeks Goal Progress: Not Progressing Goal 6:: flex FW to touch toes without deviation or hesitation. Goal Time Frame: 2-4 Weeks Goal Progress: NEW GOAL Anticipated Interventions Anticipated Interventions Patient/Client Instruction: Educate patient on: Condition and Plan of Care For the Purpose of:: To decrease pain, To decrease swelling/inflammation, To increase ROM, To improve nutrient delivery to tissue, To improve muscle performance and motor function and To increase tolerance to activity/condition/position Therapeutic Exercise to Include: Strength training, Postural training, Flexibilty training, Passive ROM and Active ROM For the Purpose of:: To decrease pain, To decrease swelling/inflammation, To increase ROM, To improve nutrient delivery to tissue, To improve muscle performance and motor function, To improve ability of physical actions for home/community/work/leisure and To improve gait and locomotor functions Manual Therapy Techniques to Include: Mobilization and Passive ROM For the Purpose of:: To decrease pain, To increase ROM and To improve nutrient delivery to tissue TENS: Yes (LB) Cryotherapy (ice pack, ice massage): Yes For the Purpose of:: To decrease pain Re-Evaluation Ending Re-evaluation ending: Please do not hesitate to contact me at [phone] by phone or if you have questions or concerns regarding this new plan of care! Sincerely, Deep Narayan, TEODORA, OCS, CSCS
--- NOTE | 2023-07-23 16:16 | HP.PTDCSUM_ITS ---
Discharge Summary D/C summary: It has been my pleasure to treat ALESSANDRO ALEMAN referred by LEI JACOBSON, with the diagnosis of Congenital stenosis of lumbar for a total of 18 visit(s). Discharge Date: 07/23/23 Please see the following information for a summary of their discharge status. Subjective Subjective: Feel alot stronger. Still pain with sitting and getting up to 7/10 in am and if sits too long. Moving around feels good. Avoids bending alot. Sleeping is OK but getting up is a problem. HEP: doing all the stretching and strengthening at home. To [facility] in one week. may have another surgery/fusion which patient welcomes if it will get rid of pain. Pain LBP and R leg: Pain Intensity (Out of 10): 0 Overall Improvement % Improvement: 60 Objective Objective/Function: Sit to stand is normal but has L deviaiton upon standing from seated position. Posture is still crummy without support. A few extension in standing seem to get rid of his shift but back immediately if sits 5 minutes. most bothersome in morning. Back ext still hesitant but able and improves his ROM. Back flexion is still very hesitant and not improving. SB are not painful. Goals Goal 1:: patient walk into therapy without a L deviation Goal Progress: Not Progressing Goal 2:: pain in LB 75% better and 1/10 at worst Goal Progress: Progressing Goal 3:: I appropriate strength DLS and posture to manage condition Goal Progress: Goal Met Goal 4:: Pt able to get out of bed and chair without hesitation Goal Progress: Not Progressing Goal 5:: oswestry score 4 or better Goal Progress: Not Progressing Goal 6:: flex FW to touch toes without deviation or hesitation. Goal Progress: Not Progressing Plan Plan: d/c, pt to continue HEP of ext to loosen up and strength, f/u with doctor regarding other options due to instability in disc in back. D/C Information Discharge Comments: to doctor for next medical step. d/c sentence: If there are questions or concerns regarding this patient's physical therapy, please feel free to call me at [phone]. Thank you for the referral of this patient. Sincerely, Deep Narayan, DPT, OCS, CSCS Balance/Gait/Functional tests Balance/Special Test Scores Oswestry Low Back Score: 13 Improvement % Improvement: 60
== END 2023-07-23 19:00 | disposition home or self-care (01) ==
LOC: PT 15:30
PROVIDERS: PCP Family Medicine
DX: Q76.49 Other congenital malformations of spine, not associated with scoliosis (principal)
CPT/HCPCS: 97110; 97161; 97164; 97530

== ENCOUNTER 2023-12-26 16:30 | Outpatient (RCR) | payer OTHER, SELFPAY ==
--- NOTE | 2023-10-08 14:45 | HP.PTEVAL ---
Patient's Visit Information Visit Information Visit Information: ALESSANDRO ALEMAN is a 48 year old M referred to Physical Therapy by LEI JACOBSON with a diagnosis of s/p anterior discectomy and L45 fusion 09/13/23. Date of Evaluation: 10/08/23 Physical Therapist: Deep Narayan, DPT, OCS, CSCS Visit Plan Frequency: 2x /Week Duration: 3 Months Plan: 2x/week for up to 3 months for No bend twist or lift for first 6 weeks, careful after that. 1. isometric core strength to HEP nad teach gym UE, LE and isometric core for I. 2. HEP progression core strength and ROM when tolerated./allowed 3. Funcitonal progression, body mechanics for function. scar massage as needed. ice as needed. Subjective Subjective: 09/13/23 fusion, discectomy L45. Pain since surgery is just surgical. It has taken care of all the nonsurgical pain and numbness that was present prior. Lingering L leg pain since surgery which was not present prior as his symptoms were R legged. L leg improving. Precautions No BTL for 6 weeks. Brace is worn outside of house. Precautions: no bend twist lift. 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 HEP: none. Has been walking. did a mile yesterday, some muscle soreness in legs but not in back. has cane but not using at home. Hobbies: Hike and golf. Basic ADLs: Dresses self , struggles with socks due to bending. Bathroom I. steps are not a problem. Pain LB: Pain Intensity (Out of 10): 1 Pain Intensity Range: 0 and 2 Comment: tender anterior incision Objective Objective: Walks in with cane but does not need it. I ambulation and stiff trasnfers careful of bending and twisting but I bed and chair. steps reciprocally with one rail with some R leg weakness. Walking on toes is weaker on R. Incisions are two posterior healed well, anterior with strips in place and dry. No signs of excessive redness, heat or swelling, moderate scar tissue R post incision and anterior incision. LB AROM flexion and ext adn SB Not tested. LE strength ankles 4- R and 4L, knees 4 B, hips 4-. max tightness HS at -45 90/90 and mod in quads. Full aROM at hips and knees and ankles WFL. reflexes 2/3 patella and achilles sensation EL WNL ot gross light touch. Balance/Special Test Scores Functional Gait Assessment Score: 28 % Disability: 6.6700 Oswestry Low Back Score: 21 Goals Goal 1:: ST: 0/10 pain and I appropriate HEP for LE [id number] and postural LE strength and isometric core ex Goal Time Frame: 4-6 Weeks Goal 2:: LT: patient able to walk and climb steps without weakness or pain reciprocally without rail Goal Time Frame: 8-12 Weeks Goal 3:: Plkan to return to golf Goal Time Frame: 8-12 Weeks Goal 4:: Hike with family without pain or problems Goal Time Frame: 6-8 Weeks Goal 5:: basck oswestry 5 or lless Goal Time Frame: 8-12 Weeks Rehabilitation Potential Physical Therapy Diagnosis: pain and stiffness and weakness limiting funciton Rehabilitation Potential: Good Anticipated Interventions Patient/Client Instruction: Educate patient on: Condition For the Purpose of:: To decrease pain, To increase ROM, To improve nutrient delivery to tissue, To improve muscle performance and motor function, To increase tolerance to activity/condition/position and To improve ability of physical actions for home/community/work/leisure Therapeutic Exercise to Include: Strength training, Postural training, Flexibilty training, Passive ROM, Active ROM and Dynamic Lumbar Stabilization For the Purpose of:: To decrease pain, To increase ROM, To improve nutrient delivery to tissue, To improve muscle performance and motor function, To increase tolerance to activity/condition/position, To improve ability of physical actions for home/community/work/leisure and To improve gait and locomotor functions Manual Therapy Techniques to Include: Scar massage For the Purpose of:: To increase ROM Cryotherapy (ice pack, ice massage): Yes For the Purpose of:: To decrease pain and To decrease swelling/inflammation Text: Thank you for the opportunity to evaluate your patient. For Medicare and Medicare HMO plans, please review the plan of care and approve it. It will need to be FAXED BACK to us at [phone] for Medicare purposes. For Medicare only, by signing this I certify the plan of care. Please let me know if there are questions or concerns regarding this plan of care. Physician Signature: Date:
--- NOTE | 2023-12-05 16:48 | HP.PTREVAL_ITS ---
Re-Evaluation Intro: LEI JACOBSON, It has been my pleasure to treat ALESSANDRO ALEMAN over the last 14 visits for s/p anterior discectomy and L45 fusion 09/13/23. Please see the progress note below for an update on the physical therapy plan of care! Subjective Subjective: Back is doing really well. A little stiff in [address] a lot of walking in [place]. Exercises going well 2x/week on his own on machines and 30 min walk another day a week. Sleep OK Activities normal at home, Cautious with bending with any weight. Will see doctor next week. Has not been golfing and hesitant to swing. Objective Objective/Function: Walks normal, bends to floor easily with just HS pulling. SB and ext are min limited as expected and painfree. See goals New goal is golf swing and progression of exercises to I adding below ex in POC Good prgonosis. Plan Plan Plan: 2-3 visits to ensure progression toward goals. next session after doctor appointment: check golf swing 50% 20+x show back ext, ab machine, glut ham, shoulder press, chest press and add to HEP if doing well. Then f/u as needed. Balance/Gait/Functional tests Balance/Special Test Scores Functional Gait Assessment Score: 28 % Disability: 6.6700 Oswestry Low Back Score: 4 Goals Goals Goal 1:: ST: 0/10 pain and I appropriate HEP for LE [id number] and postural LE strength and isometric core ex Goal Time Frame: 4-6 Weeks Goal Progress: Goal Met Goal 2:: LT: patient able to walk and climb steps without weakness or pain reciprocally without rail Goal Time Frame: 8-12 Weeks Goal Progress: Goal Met Goal 3:: Plan to return to golf Goal Time Frame: 8-12 Weeks Goal Progress: Progressing, appropriate Goal 4:: Hike with family without pain or problems Goal Time Frame: 6-8 Weeks Goal Progress: Goal Met, in city. Goal 5:: basck oswestry 5 or lless Goal Time Frame: 8-12 Weeks Goal Progress: Goal Met Goal 6:: Add safely other machine exercises in gym and I without problems Goal Time Frame: 4-6 Weeks Goal Progress: NEW GOAL Anticipated Interventions Anticipated Interventions Patient/Client Instruction: Educate patient on: Condition For the Purpose of:: To decrease pain, To increase ROM, To improve nutrient delivery to tissue, To improve muscle performance and motor function, To increase tolerance to activity/condition/position and To improve ability of physical actions for home/community/work/leisure Therapeutic Exercise to Include: Strength training, Postural training, Flexibilty training, Passive ROM, Active ROM and Dynamic Lumbar Stabilization For the Purpose of:: To decrease pain, To increase ROM, To improve nutrient delivery to tissue, To improve muscle performance and motor function, To increase tolerance to activity/condition/position, To improve ability of physical actions for home/community/work/leisure and To improve gait and locomotor functions Manual Therapy Techniques to Include: Scar massage For the Purpose of:: To increase ROM Cryotherapy (ice pack, ice massage): Yes For the Purpose of:: To decrease pain and To decrease swelling/inflammation Re-Evaluation Ending Re-evaluation ending: Please do not hesitate to contact me at [phone] by phone or if you have questions or concerns regarding this new plan of care! Sincerely, Deep Narayan, DPT, OCS, CSCS
--- NOTE | 2023-12-26 17:03 | HP.PTDCSUM_ITS ---
Discharge Summary D/C summary: It has been my pleasure to treat ALESSANDRO ALEMAN referred by LEI JACOBSON, with the diagnosis of s/p anterior discectomy and L45 fusion 09/13/23 for a total of 16 visit(s). Discharge Date: 12/26/23 Please see the following information for a summary of their discharge status. Subjective Subjective: Golf swing at 50% in back yard. Pain is not a problem, 1/10 from lifting but it is transient. Gym exercises are going well and feels compre hensive. Sleep is OK. To doctor in March. Activities are pretty normal. Pain LB: Pain Intensity (Out of 10): 0 Overall Improvement % Improvement: 100 Objective Objective/Function: Lumbar extension still tight and mod limtied with some tightness in back but no pain, Lfexion is good with HS tightness, hips are tight in squatted position at about 75 degrees knee flexion, no pain. Walks well and without antalgia. Goals Goal 1:: ST: 0/10 pain and I appropriate HEP for LE [id number] and postural LE strength and isometric core ex Goal Progress: Goal Met Goal 2:: LT: patient able to walk and climb steps without weakness or pain reciprocally without rail Goal Progress: Goal Met Goal 3:: Plan to return to golf Goal Progress: Progressing, appropriate Goal 4:: Hike with family without pain or problems Goal Progress: Goal Met, in city. Goal 5:: basck oswestry 5 or lless Goal Progress: Goal Met Goal 6:: Add safely other machine exercises in gym and I without problems Goal Progress: Goal Met Plan Plan: d/c D/C Information Discharge Comments: Pt will continue 3x/week in gym, 6x week home stretch and strength and will f/u with doctor at appropriate time. d/c sentence: If there are questions or concerns regarding this patient's physical therapy, please feel free to call me at [phone]. Thank you for the referral of this patient. Sincerely, Deep Narayan, DPT, OCS, CSCS Balance/Gait/Functional tests Balance/Special Test Scores Functional Gait Assessment Score: 28 % Disability: 6.6700 Oswestry Low Back Score: 4 Improvement % Improvement: 100
== END 2023-12-26 19:00 | disposition home or self-care (01) ==
LOC: PT 16:30
PROVIDERS: PCP Family Medicine
DX: Q76.49 Other congenital malformations of spine, not associated with scoliosis (principal)
CPT/HCPCS: 97110; 97161; 97164; 97530

== ENCOUNTER → 2024-02-21 | Outpatient (CLI) | payer OTHER, SELFPAY ==
[2024-02-21 10:08] LABS: Absolute Lymphocyte Count 1.43 X10^3/uL (0.83-4.51); Absolute Neutrophil Count 3.8 X10^3/uL (2.0-7.7); Basophil# 0.04 X10^3/uL; Basophil% 0.6 % (0-1); Eosinophils% 3.1 % (0-5); Hematocrit 45.6 % (40-54); Hemoglobin 14.8 g/dL (13.0-16.5); Lymphocyte # 1.43 X10^3/ul (0.83-4.51); Lymphocyte % 22.4 % (19-41); Mean Corp Hgb Conc 32.5 g/dL (32-36); Mean Corpuscular Hgb 27.4 pg (27.0-32.0); Mean Corpuscular Volume 84.4 fL (80-94); Mean Platelet Vol. 9.5 fl (6.2-12.0); Monocyte# 0.85 X10^3/uL; Monocyte% 13.3 % (0-10); NRBC Flagged by Analyzer 0 % (0-5); Neutrophil # 3.84 X10^3/uL (2.7-7.7); Neutrophil % 60.1 % (47-70); Platelet Count 300 K/mm3 (150-450); RBC Distribution Width CV 13.4 % (11.6-14.6); RBC Distribution Width SD 41.5 fl (35.1-43.9); White Blood Count 6.4 K/mm3 (4.4-11.0)
[2024-02-21 10:38] LABS: Vitamin D,25 Hydroxy 26.6 ng/mL
[2024-02-21 11:18] LABS: ALB/GLOB Ratio 0.9 RATIO (0.9-2.4); AST(SGOT) 18 U/L (15-37); Alanine Aminotransfer ALT/SGPT 35 U/L (16-61); Albumin, Serum 3.5 g/dL (3.2-5.0); Alkaline Phosphatase 55 U/L (45-117); Anion Gap 8 (5-15); BUN 14 mg/dL (7-18); BUN/Creat Ratio 11.5 RATIO (10-20); Calcium,Total 9.3 mg/dL (8.5-10.1); Chloride 105 mmol/L (98-107); Cholesterol 167 mg/dL (200); Creatinine, Serum 1.22 mg/dL (0.70-1.30); EST Glomerular Filtration Rate 67 mL/min (>60); Est Glom Filt Rate - Afr Amer 81 mL/min (>60); Globulin 3.9 g/dL (2.2-4.2); Glucose 95 mg/dL (74-106); High Density Lipoprotein 55 mg/dL; PSA,Total - Annual Screen 3.88 ng/mL (0.00-4.00); Potassium 4.2 mmol/L (3.5-5.1); Protein, Total 7.4 g/dL (6.4-8.2); Sodium Level 138 mmol/L (136-145); Triglycerides 79 mg/dL; Very Low Density Lipoprotein 16 mg/dL (5-40)
== END | disposition home or self-care (01) ==
LOC: MTLAB 07:49
PROVIDERS: PCP Family Medicine; Referring Provider Family Medicine; Visit Provider Family Medicine
DX: Z00.00 Encounter for general adult medical examination without abnormal findings (principal); R97.20 Elevated prostate specific antigen [PSA]; Z13.1 Encounter for screening for diabetes mellitus; Z13.220 Encounter for screening for lipoid disorders
CPT/HCPCS: 36415; 80053; 80061; 82306; 84153; 85025; G0103

== ENCOUNTER → 2025-02-25 | Outpatient (CLI) | payer OTHER, SELFPAY ==
[2025-02-25 15:25] LABS: Absolute Neutrophil Count 1.8 X10^3/uL (2.0-7.7); Basophil# 0.04 X10^3/uL; Eosinophil# 0.18 X10^3/uL; Eosinophils% 4.5 % (0-5); Hematocrit 44.1 % (40-54); Hemoglobin 14.7 g/dL (13.0-16.5); Lymphocyte % 39.6 % (19-41); Mean Corp Hgb Conc 33.3 g/dL (32-36); Mean Corpuscular Hgb 27.9 pg (27.0-32.0); Mean Corpuscular Volume 83.8 fL (80-94); Mean Platelet Vol. 10.2 fl (6.2-12.0); Monocyte# 0.46 X10^3/uL; Monocyte% 11.4 % (0-10); NRBC Flagged by Analyzer 0 % (0-5); Neutrophil # 1.75 X10^3/uL (2.7-7.7); Neutrophil % 43.3 % (47-70); Platelet Count 272 K/mm3 (150-450); RBC Distribution Width CV 13.7 % (11.6-14.6); RBC Distribution Width SD 42.2 fl (35.1-43.9); Red Blood Count 5.26 M/mm3 (4.6-6.2)
[2025-02-25 15:57] LABS: ALB/GLOB Ratio 1.5 RATIO (0.9-2.4); AST(SGOT) 22 U/L (<=37); Alanine Aminotransfer ALT/SGPT 26 U/L (<=46); Albumin, Serum 4.4 g/dL (3.5-5.0); Alkaline Phosphatase 46 U/L (40-129); Anion Gap 12 (5-15); BUN 21 mg/dL (4-19); BUN/Creat Ratio 17.5 RATIO (10-20); Calcium,Total 9.9 mg/dL (7.6-11.0); Carbon Dioxide 22.7 mmol/L (21.0-32.0); Chloride 107 mmol/L (98-108); Cholesterol 147 mg/dL (<=200); Creatinine, Serum 1.18 mg/dL (0.70-1.20); EST Glomerular Filtration Rate 74 (>60); Globulin 2.8 g/dL (2.2-4.2); Glucose 89 mg/dL (70-99); High Density Lipoprotein 51 mg/dL; Low Density Lipoprotein Calc. 88 mg/dL; PSA,Total - Annual Screen 3.33 ng/mL (0.02-4.00); Potassium 4.6 mmol/L (3.3-5.1); Protein, Total 7.2 g/dL (5.9-8.4); Sodium Level 141 mmol/L (133-145); Total Bilirubin 0.56 mg/dL (0.00-1.30); Triglycerides 43 mg/dL; Very Low Density Lipoprotein 9 mg/dL (5-40); cholesterol:hdl ratio screen 2.91
--- OUTSIDE RECORDS SUMMARY | 2025-02-25 21:27 | XMS RPT_ITS | CCD ---
Author Organization [facility] Inform ion Partnership [facility] Care Team Providers Care Irrigation Engineer Name Role Phone Ada Duvall Unavailable Unavailable Bobby Cain Unavailable Unavailable EloinaAda armijo Unavailable Unavailable EloinaAda armijo Manpreet Unavailable Unavailable EloinaAda armijo Manpreet Unavailable Unavailable Bobby Cain Unavailable Unavailable Quertracey Toni Ahmad Unavailable Unavailab le Quertracey, Toni Ahmad Unavailable Unavailab martha Ferreira Toni Ahmad Unavailable Unavailab Bobby Hayward Unavailable Unavailable ORTEGA DE SANTIAGO Unavailable UnavailMAYI Abrams Unavailable Unavailable Joel Khan MD Unavailable Marianna Doll DO Primary Care Provider HALI CIFUENTES Attending Unavailable MARIANNA DOLL Primary Care Unavailable HALI CIFUENTES Attending Unavailable SONYA NERI Referring Unavailable MARIANNA DOLL Primary Care Unavailable HALI CIFUENTES Referring Unavailable SONYA NERI Attending Unavailable MARIANNA DOLL Primary Care Unavailable Bobby Cain MD Primary Care Provider BOBBY FAITH Referring Unavailable BOBBY FAITH Attending Unavailable Marianna Doll Primary Care Unavailable BOBBY FAITH Referring Unavailable BOBBY FAITH Attending Unavailable Marianna Doll Primary Care Unavailable Marianna Doll Referring Unavailable Marianna Doll Attending Unavailable Marianna Doll Primary Care Unavailable Gina Rod Referring Unavailable Gina Rod Attending Unavailable Gina Rod Primary Care Unavailable Medications Current Medications Medication Drug Class(es) Dates Sig (Normalized) Sig (Original) acetaminophen 325 mg / HYDROcodone bitartrate 5 mg oral tablet (6 sources) Opioid Agonist Start: 04-14-2017 Hydrocodone-Aceta minophen (Bath 5-325 Tablet) 1 EACH tablet Active 1 EACH PO EVERY 4 HOURS NEEDED April 14, 2017 6:51am benzonatate 100 mg oral capsule (4 sources) Non-narcotic Antitussive Start: 08-20-2022 take 200 mg by mouth three times daily Benzonatate Active 200 MG PO THREE TIMES A DAY August 20, 2022 1:00am clindamycin 300 mg oral capsule (6 sources) Lincosamide Antibacterial Start: 04-14-2017 take 300 mg by mouth four times daily Clindamycin Hcl Active 300 MG PO 4 TIMES DAILY April 14, 2017 12:00am naproxen 500 mg oral tablet (6 sources) Nonsteroidal Anti-inflammatory Drug Start: 04-14-2017 take 1 tablet by mouth twice daily Naproxen (Naprosyn) 500 MG tablet Active 500 MG PO TWICE A DAY April 14, 2017 12:00am polyethylene glycol 3350 [id number] mg / potassium chloride 2970 mg / sodium bicarbonate 6740 mg / sodium chloride 5860 mg / sodium sulfate 27906 mg powder for oral solution (1 source) Osmotic Laxative Start: 02-19-2023 End: 02-19-2023 peg 3350-Electrolytes (GOLYTELY) 236-22.74-6.74 -5.86 gram suspension Take 4,000 mL by mouth one time only for 1 dose. 1 Each 0 02/19/2023 02/19/2023 Active Comment on above: Take 4,000 mL by viola th one time only for 1 dose. Completed/Discontinued Medications Medication Drug Class(es) Dates Sig (Normalized) Sig (Original) acetaminophen 325 mg oral tablet (1 source) Start: 06-09-2020 TYLENOL 325 MG TABS 2 tablet by mouth as directed as needed acetaminophen [id number] Cassie Santoyo LPN oseltamivir 75 mg oral capsule (4 sources) Neuraminidase Inhibitor Start: 08-20-2022 End: 08-25-2022 take 1 capsule by mouth every twelve hours Oseltamivir (Tamiflu) 75 mg capsule Discontinued 75 MG PO Q12H 10 5 August 20, 2022 1:00am August 25, 2022 1:12am Problems Active Problems Problem Classification Problem Date Documented Date Episodic/Chronic Acquired foot deformities (1 source) Acquired cavovarus deformity of right foot; Translations: [Other acquired deformities of right foot] Onset: 12-18-2021 12-18-2021 Episodic Influenza (4 sources) Influenza due to Influenza A virus; Translations: [Influenza due to other identified influenza virus with other respiratory manifestations] 08-20-2022 Episodic Other acquired deformities (1 source) Equinus contracture of the ankle; Translations: [Contracture, right ankle] Onset: 12-18-2021 12-18-2021 Chronic Other and unspecified benign neoplasm (1 source) Tubular adenoma ; Translations: [Benign neoplasm, unspecified site] Episodic Other and unspecified benign neoplasm (1 source) Benign neoplasm, unspecified site; Translations: [Tubular adenoma] Onset: 03-01-2023 Episodic Other congenital anomalies (1 source) Other congenital malformations of spine, not associated with scoliosis; Translations: [Other congenital malformations of spine, not associated with scoliosis] Onset: 12-27-2023 Chronic Spondylosis; intervertebral disc disorders; other back problems (2 sources) Other intervertebral disc displacement, lumbar region; Translations: [Prolapsed lumbar intervertebral disc] Onset: 02-07-2018 02-11-2018 Chronic Unclassified (1 source) Inflammatory conditions of jaws / M27.2(ICD-10) Onset: 04-20-2017 Unclassified (1 source) Cellulitis and abscess of mouth / K12.2(ICD-10) Onset: 04-15-2017 Unclassified (1 source) Cramp and spasm / R25.2(ICD-10) Onset: 03-14-2017 Unclassified (2 sources) Sialoadenitis, unspecified / K11.20(ICD-10) Onset: 04-20-2017 Unclassified (2 sources) 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) Onset: 03-15-2017 Unclassified (2 sources) Limited mandibular range of motion / M26.52(ICD-10) Onset: 03-15-2017 Unclassified (1 source) Dental caries, unspecified / K02.9(ICD-10) Onset: 04-20-2017 Past or Other Problems Problem Classification Problem Date Documented Date Episodic/Chronic Contraceptive and procreative management (3 sources) Patient encounter status; Translations: [Encounter for sterilization] Onset: 07-17-2007 07-17-2007 Episodic Diseases of mouth; excluding dental (1 source) Sialoadenitis, unspecified; Translations: [Sialoadenitis, unspecified] Onset: 04-15-2017 Episodic Diseases of mouth; excluding dental (1 source) Cellulitis and abscess of mouth; Translations: [Cellulitis and abscess of mouth] Onset: 04-15-2017 Other aftercare (1 source) Surgical follow-up; Translations: [Encounter for other specified surgical aftercare] Onset: 02-27-2018 02-27-2018 Episodic Other connective tissue disease (1 source) Cramp and spasm; Translations: [Cramp and spasm] Onset: 03-14-2017 Episodic Other connective tissue disease (1 source) Weakness of foot; Translations: [Other symptoms and signs involving the musculoskeletal system] Onset: 04-08-2020 04-08-2020 Episodic Other screening for suspected conditions (not mental disorders or infectious disease) (4 sources) Encounter for screening for malignant neoplasm of colon; Translations: [Elevated prostate specific antigen [PSA]] Onset: 02-19-2023 Episodic Spondylosis; intervertebral disc disorders; other back problems (4 sources) Lumbago with sciatica, right side; Translations: [Sciatica, right side] Onset: 02-06-2018 01-02-2019 Episodic Unclassified (1 source) Problem Results Test Name Value Interpretation Reference Range Facility CBC W/Diff, Automatedon 02-01 Absolute Lymph 1.43 X10 3/uL Normal 0.83-4.51 [facility] Comment on above: Order Comment: Order Date: 02/19/24 Order Info: [id number] - CBCD Performed By: #### L 500.4050, L501.9910, L500.4100, L100.0100, L506.1000 #### [facility] [address] [place], [address] Absolute Neut 3.8 X10 3/uL Normal 2.0-7.7 [facility] Comment on above: Order Comment: Order Date: 02/19/24 Order Info: [id number] - CBCD Performed By: #### L 500.4050, L501.9910, L500.4100, L100.0100, L506.1000 #### [facility] [address] [place], [address] Basophils/100 WBC (Bld) 0.6 % Normal 0-1 [facility] Comment on above: Order Comment: Order Date: 02/19/24 Order Info: [id number] - CBCD Performed By: #### L 500.4050, L501.9910, L500.4100, L100.0100, L506.1000 #### [facility] [address] [place], [address] Eosinophils/100 WBC (Bld) 3.1 % Normal 0-5 [facility] Comment on above: Order Comment: Order Date: 02/19/24 Order Info: [id number]- - CBCD Performed By: #### L 500.4050, L501.9910, L500.4100, L100.0100, L506.1000 #### [facility] [address] [place], [address] Erythrocyte distribution width (RBC) [Ratio] 13.4 % Normal 11.6-14.6 [facility] Comment on above: Order Comment: Order Date: 02/19/24 Order Info: [id number]- - CBCD Performed By: #### L 500.4050, L501.9910, L500.4100, L100.0100, L506.1000 #### [facility] [address] [place], [address] Hematocrit (Bld) [Volume fraction] 45.6 % Normal 40-54 [facility] Comment on above: Order Comment: Order Date: 02/19/24 Order Info: [id number] - CBCD Performed By: #### L 500.4050, L501.9910, L500.4100, L100.0100, L506.1000 #### [facility] [address] [place], [address] Hemoglobin (Bld) [Mass/Vol] 14.8 g/dL Normal 13.0-16.5 [facility] Comment on above: Order Comment: Order Date: 02/19/24 Order Info: [id number] - CBCD Performed By: #### L 500.4050, L501.9910, L500.4100, L100.0100, L506.1000 #### [facility] [address] [place], [address] IG% 0.500 Normal 0.0-0.9 [facility] Comment on above: Order Comment: Order Date: 02/19/24 Order Info: [id number]- - CBCD Result Comment: IG% - Immature Granulocytes (promyelocytes, myelocytes and metamyelocytes) > 1% indicates that a LEFT SHIFT is Present. Performed By: #### L 500.4050, L501.9910, L500.4100, L100.0100, L506.1000 #### [facility] [address] [place], [address] Lymphocytes/100 WBC (Bld) 22.4 % Normal 19-41 [facility] Comment on above: Order Comment: Order Date: 02/19/24 Order Info: [id number] - CBCD Performed By: #### L 500.4050, L501.9910, L500.4100, L100.0100, L506.1000 #### [facility] [address] [place], [address] MCH (RBC) [Entitic mass] 27.4 pg Normal 27.0-32.0 [facility] Comment on above: Order Comment: Order Date: 02/19/24 Order Info: [id number] - CBCD Performed By: #### L 500.4050, L501.9910, L500.4100, L100.0100, L506.1000 #### [facility] [address] [place], [address] MCHC (RBC) [Mass/Vol] 32.5 g/dL Normal 32-36 [facility] Comment on above: Order Comment: Order Date: 02/19/24 Order Info: [id number] - CBCD Performed By: #### L 500.4050, L501.9910, L500.4100, L100.0100, L506.1000 #### [facility] [address] [place], [address] MCV (RBC) [Entitic vol] 84.4 fL Normal 80-94 [facility] Comment on above: Order Comment: Order Date: 02/19/24 Order Info: [id number] - CBCD Performed By: #### L 500.4050, L501.9910, L500.4100, L100.0100, L506.1000 #### [facility] [address] [place], [address] Monocytes/100 WBC (Bld) 13.3 % High 0-10 [facility] Comment on above: Order Comment: Order Date: 02/19/24 Order Info: 0184-1 - CBCD Performed By: #### L 500.4050, L501.9910, L500.4100, L100.0100, L506.1000 #### [facility] [address] [place], [address] Neutrophils/100 WBC (Bld) 60.1 % Normal 47-70 [facility] Comment on above: Order Comment: Order Date: 02/19/24 Order Info: [id number] - CBCD Performed By: #### L 500.4050, L501.9910, L500.4100, L100.0100, L506.1000 #### [facility] [address] [place], [address] Nucleated RBC (Bld) [#/Vol] 0 10*3/uL Normal 0-5 [facility] Comment on above: Order Comment: Order Date: 02/19/24 Order Info: [id number] - CBCD Performed By: #### L 500.4050, L501.9910, L500.4100, L100.0100, L506.1000 #### [facility] [address] [place], [address] Platelet mean volume (Bld) [Entitic vol] 9.5 fL Normal 6.2-12.0 [facility] Comment on above: Order Comment: Order Date: 02/19/24 Order Info: [id number] - CBCD Performed By: #### L 500.4050, L501.9910, L500.4100, L100.0100, L506.1000 #### [facility] [address] [place], [address] Platelets (Bld) [#/Vol] 300 10*3/uL Normal 150-450 [facility] Comment on above: Order Comment: Order Date: 02/19/24 Order Info: [id number]- - CBCD Performed By: #### L 500.4050, L501.9910, L500.4100, L100.0100, L506.1000 #### [facility] [address] [place], [address] RBC (Bld) [#/Vol] 5.40 10*6/uL Normal 4.6-6.2 [facility] Comment on above: Order Comment: Order Date: 02/19/24 Order Info: [id number]- - CBCD Performed By: #### L 500.4050, L501.9910, L500.4100, L100.0100, L506.1000 #### [facility] [address] [place], [address] RDW SD 41.5 fl Normal 35.1-43.9 [facility] Comment on above: Order Comment: Order Date: 02/19/24 Order Info: [id number]- - CBCD Performed By: #### L 500.4050, L501.9910, L500.4100, L100.0100, L506.1000 #### [facility] [address] [place], [address] WBC (Bld) [#/Vol] 6.4 10*3/uL Normal 4.4-11.0 [facility] Comment on above: Order Comment: Order Date: 02/19/24 Order Info: [id number] - CBCD Performed By: #### L 500.4050, L501.9910, L500.4100, L100.0100, L506.1000 #### [facility] [address] [place], [address] Comprehensive Metabolic Prof ilon 02-21-2024 Albumin [Mass/Vol] 3.5 g/dL Normal 3.2-5.0 [facility] Comment on above: Order Comment: Order Date: 02/19/24 Order Info: [id number] - CMP Order Info: [id number] - LIPID Order Info: [id number] - PSA Performed By: #### L 500.4050, L501.9910, L500.4100, L100.0100, L506.1000 #### [facility] [address] [place], [address] Albumin/Globulin [Mass ratio] 0.9 {ratio} Normal 0.9-2.4 [facility] Comment on above: Order Comment: Order Date: 02/19/24 Order Info: [id number]- - CMP Order Info: [id number] - LIPID Order Info: [id number]- - PSA Performed By: #### L 500.4050, L501.9910, L500.4100, L100.0100, L506.1000 #### [facility] [address] [place], [address] ALK P 55 U/L Normal 45-117 [facility] Comment on above: Order Comment: Order Date: 02/19/24 Order Info: [id number] - CMP Order Info: [id number] - LIPID Order Info: [id number] - PSA Performed By: #### L 500.4050, L501.9910, L500.4100, L100.0100, L506.1000 #### [facility] [address] [place], [address] ALT [Catalytic activity/Vol] 35 U/L Normal 16-61 [facility] Comment on above: Order Comment: Order Date: 02/19/24 Order Info: [id number] - CMP Order Info: [id number] - LIPID Order Info: [id number] - PSA Performed By: #### L 500.4050, L501.9910, L500.4100, L100.0100, L506.1000 #### [facility] [address] [place], [address] AST [Catalytic activity/Vol] 18 U/L Normal 15-37 [facility] Comment on above: Order Comment: Order Date: 02/19/24 Order Info: 785- - CMP Order Info: - LIPID Order Info: [id number] - PSA Performed By: #### L 500.4050, L501.9910, L500.4100, L100.0100, L506.1000 #### [facility] [address] [place], [address] Bilirubin [Mass/Vol] 0.70 mg/dL Normal 0.20-1.00 [facility] Comment on above: Order Comment: Order Date: 02/19/24 Order Info: [id number] - CMP Order Info: - LIPID Order Info: [id number] - PSA Result Comment: For patients on eltrombopag therapy, use of Dimension [place] TBIL is not recommended. Performed By: #### L 500.4050, L501.9910, L500.4100, L100.0100, L506.1000 #### [facility] [address] [place], [address] BUN/CRE 11.5 RATIO Normal 10-20 [facility] Comment on above: Order Comment: Order Date: 02/19/24 Order Info: [id number] - CMP Order Info: [id number] - LIPID Order Info: [id number] - PSA Performed By: #### L 500.4050, L501.9910, L500.4100, L100.0100, L506.1000 #### [facility] [address] [place], [address] CA,Total 9.3 mg/dL Normal 8.5-10.1 [facility] Comment on above: Order Comment: Order Date: 02/19/24 Order Info: [id number] - CMP Order Info: [id number] - LIPID Order Info: [id number] - PSA Performed By: #### L 500.4050, L501.9910, L500.4100, L100.0100, L506.1000 #### [facility] [address] [place], [address] Chloride [Moles/Vol] 105 mmol/L Normal 98-107 [facility] Comment on above: Order Comment: Order Date: 02/19/24 Order Info: [id number] - CMP Order Info: [id number] - LIPID Order Info: [id number] - PSA Performed By: #### L 500.4050, L501.9910, L500.4100, L100.0100, L506.1000 #### [facility] [address] [place], [address] CO2 [Moles/Vol] 25.0 mmol/L Normal 21.0-32.0 [facility] Comment on above: Order Comment: Order Date: 02/19/24 Order Info: 07- - CMP Order Info: [id number] - LIPID Order Info: [id number] - PSA Performed By: #### L 500.4050, L501.9910, L500.4100, L100.0100, L506.1000 #### [facility] [address] [place], [address] Creatinine [Mass/Vol] 1.22 mg/dL Normal 0.70-1.30 [facility] Comment on above: Order Comment: Order Date: 02/19/24 Order Info: [id number] - CMP Order Info: [id number] - LIPID Order Info: [id number] - PSA Result Comment: The validity of the calculated GFR GFRAA in patients over 70 years has not been determined. Clinical correlation is essential. Performed By: #### L 500.4050, L501.9910, L500.4100, L100.0100, L506.1000 #### [facility] [address] [place], [address] EST GFR - AA 81 mL/min Normal >60 [facility] Comment on above: Order Comment: Order Date: 02/19/24 Order Info: 07- - CMP Order Info: [id number] - LIPID Order Info: [id number] - PSA Result Comment: Afri can [place]ian GFR Calc Performed By: #### L 500.4050, L501.9910, L500.4100, L100.0100, L506.1000 #### [facility] [address] [place], [address] GAP 8 Normal 5-15 [facility] Comment on above: Order Comment: Order Date: 02/19/24 Order Info: 07 - CMP Order Info: [id number] - LIPID Order Info: [id number] - PSA Performed By: #### L 500.4050, L501.9910, L500.4100, L100.0100, L506.1000 #### [facility] [address] [place], [address] GFR/1.73 sq M.predicted among non-blacks MDRD (S/P/Bld) [Vol rate/Area] 67 mL/min/{1.73_m2} Normal >60 [facility] Comment on above: Order Comment: Order Date: 02/19/24 Order Info: [id number] - CMP Order Info: [id number] - LIPID Order Info: [id number] - PSA Result Comment: Non- GFR Calc Performed By: #### L 500.4050, L501.9910, L500.4100, L100.0100, L506.1000 #### [facility] [address] [place], [address] Globulin (S) [Mass/Vol] 3.9 g/dL Normal 2.2-4.2 [facility] Comment on above: Order Comment: Order Date: 02/19/24 Order Info: 07- - CMP Order Info: [id number] - LIPID Order Info: [id number] - PSA Performed By: #### L 500.4050, L501.9910, L500.4100, L100.0100, L506.1000 #### [facility] [address] [place], [address] Glucose [Mass/Vol] 95 mg/dL Normal 74-106 [facility] Comment on above: Order Comment: Order Date: 02/19/24 Order Info: [id number] - CMP Order Info: [id number] - LIPID Order Info: [id number] - PSA Performed By: #### L 500.4050, L501.9910, L500.4100, L100.0100, L506.1000 #### [facility] [address] [place], [address] Potassium [Moles/Vol] 4.2 mmol/L Normal 3.5-5.1 [facility] Comment on above: Order Comment: Order Date: 02/19/24 Order Info: 07 - CMP Order Info: [id number] - LIPID Order Info: [id number] - PSA Performed By: #### L 500.4050, L501.9910, L500.4100, L100.0100, L506.1000 #### [facility] [address] [place], [address] Sodium [Moles/Vol] 138 mmol/L Normal 136-145 [facility] Comment on above: Order Comment: Order Date: 02/19/24 Order Info: 07 - CMP Order Info: [id number] - LIPID Order Info: [id number] - PSA Performed By: #### L 500.4050, L501.9910, L500.4100, L100.0100, L506.1000 #### [facility] [address] [place], [address] T PROT 7.4 g/dL Normal 6.4-8.2 [facility] Comment on above: Order Comment: Order Date: 02/19/24 Order Info: [id number] - CMP Order Info: [id number] - LIPID Order Info: [id number] - PSA Performed By: #### L 500.4050, L501.9910, L500.4100, L100.0100, L506.1000 #### [facility] [address] [place], [address] Urea nitrogen [Mass/Vol] 14 mg/dL Normal 7-18 [facility] Comment on above: Order Comment: Order Date: 02/19/24 Order Info: [id number] - CMP Order Info: - LIPID Order Info: [id number] - PSA Performed By: #### L 500.4050, L501.9910, L500.4100, L100.0100, L506.1000 #### [facility] [address] [place], [address] Lipid Profileon 02-21-2024 Cholesterol [Mass/Vol] 167 mg/dL Normal 200 [facility] Comment on above: Order Comment: Order Date: 02/19/24 Order Info: [id number] - CMP Order Info: [id number] - LIPID Order Info: [id number] - PSA Result Comment: <200 mg/dL Desirable 200-240 mg/dL Borderline >240 mg/dL High Risk Performed By: #### L 500.4050, L501.9910, L500.4100, L100.0100, L506.1000 #### [facility] [address] [place], [address] Cholesterol in HDL [Mass/Vol] 55 mg/dL Normal [facility] Comment on above: Order Comment: Order Date: 02/19/24 Order Info: 785- - CMP Order Info: - LIPID Order Info: [id number] - PSA Result Comment: The drugs N-Acetylcysteine and Metamizole may falsely depress this assay. Reference Range HDL <40 mg/dL Low HDL Cholesterol HDL >or= 60 mg/dL High HDL Cholesterol Performed By: #### L 500.4050, L501.9910, L500.4100, L100.0100, L506.1000 #### [facility] [address] [place], [address] Cholesterol in LDL [Mass/Vol] 96 mg/dL Normal 0-130 [facility] Comment on above: Order Comment: Order Date: 02/19/24 Order Info: [id number] - CMP Order Info: [id number] - LIPID Order Info: [id number] - PSA Performed By: #### L 500.4050, L501.9910, L500.4100, L100.0100, L506.1000 #### [facility] [address] [place], [address] Cholesterol in VLDL [Mass/Vol] 16 mg/dL Normal 5-40 [facility] Comment on above: Order Comment: Order Date: 02/19/24 Order Info: [id number]- - CMP Order Info: [id number] - LIPID Order Info: [id number] - PSA Performed By: #### L 500.4050, L501.9910, L500.4100, L100.0100, L506.1000 #### [facility] [address] [place], [address] Triglyceride [Mass/Vol] 79 mg/dL Normal [facility] Comment on above: Order Comment: Order Date: 02/19/24 Order Info: [id number] - CMP Order Info: [id number] - LIPID Order Info: [id number] - PSA Result Comment: The drugs N-Acetylcysteine and Metamizole may falsely depress this assay. Serum Triglycerides Reference Interval Normal <150 mg/dL Borderline high 150 - 199 mg/dL High 200 - 499 mg/dL Very High > or = 500 mg/dL Performed By: #### L 500.4050, L501.9910, L500.4100, L100.0100, L506.1000 #### [facility] [address] [place], [address] PSA,Total - Annual Screenon 02-21-2024 PSA,TOT SCREEN 3.88 ng/mL Normal 0.00-4.00 [facility] Comment on above: Order Comment: Order Date: 02/19/24 Order Info: [id number] - CMP Order Info: [id number] - LIPID Order Info: [id number] - PSA Result Comment: This test was performed using the TPSA assay method for the [employer] chemistry system. Values obtained with different assay methods cannot be used interchangably. When changing PSA assays in the course of monitoring a patient, additional sequential testing should be carried out to confirm baseline values. Performed By: #### L 500.4050, L501.9910, L500.4100, L100.0100, L506.1000 #### [facility] [address] [place], [address] Vitamin D,25 Hydroxyon 02-20 Vitamin D 25-OH 26.6 ng/mL Normal [facility] Comment on above: Order Comment: Order Date: 02/19/24 Order Info: [id number] - VITD25 Result Comment: Lisa min D 25(OH) Status Range Deficiency <20 ng/mL (50nmol/L) Insufficiency 20 - 30 ng/mL (50 - 75 nmol/L) Sufficiency 30 - 100 ng/mL (75 - 250 nmol/L) Toxicity >100 ng/mL (>250 nmol/L) Performed By: #### L 500.4050, L501.9910, L500.4100, L100.0100, L506.1000 #### [facility] [address] [place], [address] PT D/C Summary (1)on 024 PT D/C Summary (1) [facility] Physical Therapy [address] [place] [address] / REHABILITATION SERVICES DISCHARGE SUMMARY MR#: [id number] Acct: [id number] Name: ANGELO ALEMAN Rep #: [id number] : 1975 48 From: Toma Narayan DPT, OCS, CSCS Referring : Status: REG RCR Insurance: [facility] PAY INSURANCE Discharge Summary D/C summary: It has been my pleasure to treat ANGELO ALEMAN referred by LEI JACOBSON, with the diagnosis of s/p anterior discectomy and L45 fusion 09/13/23 for a total of 16 visit(s). Discharge Date: 12/26/23 Please see the following information for a summary of their discharge status. Subjective Subjective: Golf swing at 50% in back yard. Pain is not a problem, 1/10 from lifting but it is transient. Gym exercises are going well and feels comprehensive. Sleep is OK. To doctor in March. Activities are pretty normal. Pain LB: Pain Intensity (Out of 10): 0 Overall Improvement % Improvement: 100 Objective Objective/Function: Lumbar extension still tight and mod limtied with some tightness in back but no pain, Lfexion is good with HS tightness, hips are tight in squatted position at about 75 degrees knee flexion, no pain. Walks well and without antalgia. Goals Goal 1:: ST: 0/10 pain and I appropriate HEP for LE [id number] and postural LE strength and isometric core ex Goal Progress: Goal Met Goal 2:: LT: patient able to walk and climb steps without weakness or pain reciprocally without rail Goal Progress: Goal Met Goal 3:: Plan to return to golf Goal Progress: Progressing, appropriate Goal 4:: Hike with family without pain or problems Goal Progress: Goal Met, in city. Goal 5:: basck oswestry 5 or lless Goal Progress: Goal Met Goal 6:: Add safely other machine exercises in gym and I without problems Goal Progress: Goal Met Plan Plan: d/c D/C Information Discharge Comments: Pt will continue 3x/week in gym, 6x week home stretch and strength and will f/u with doctor at appropriate time. d/c sentence: If there are questions or concerns regarding this patient's physical therapy, please feel free to call me at [phone]. Thank you for the referral of this patient. Sincerely, Toma Narayan, ALBANT, OCS, CSCS Balance/Gait/Functional tests Balance/Special Test Scores Functional Gait Assessment Score: 28 % Disability: 6.6700 Oswestry Low Back Score: 4 Improvement % Improvement: 100 12/26/23 1703 CC: Marianna Doll, DO; LEI JACOBSON EBG Signed Normal [facility] Re-Evaluation - PT (1)on Re-Evaluation - PT (1) [facility] [address] [facility] [place] [address] / REEVALUATION / MEDICARE RECERTIFICATION PHYSICAL THERAPY MR#: [id number] Acct: [id number] Name: ANGELO ALEMAN Rep #: [id number] : 1975 48 From: Toma PHOENIXT, OCS, CSCS Referring DrBin: Status:REG RCR Insurance: [facility] PAY INSURANCE Re-Evaluation Intro: LEI JACOBSON, It has been my pleasure to treat ANGELO ALEMAN over the last 14 visits for s/p anterior discectomy and L45 fusion 09/13/23. Please see the progress note below for an update on the physical therapy plan of care! Subjective Subjective: Back is doing really well. A little stiff in [address] a lot of walking in [place]. Exercises going well 2x/week on his own on machines and 30 min walk another day a week. Sleep OK Activities normal at home, Cautious with bending with any weight. Will see doctor next week. Has not been golfing and hesitant to swing. Objective Objective/Function: Walks normal, bends to floor easily with just HS pulling. SB and ext are min limited as expected and painfree. See goals New goal is golf swing and progression of exercises to I adding below ex in POC Good prgonosis. Plan Plan Plan: 2-3 visits to ensure progression toward goals. next session after doctor appointment: check golf swing 50% 20+x show back ext, ab machine, glut ham, shoulder press, chest press and add to HEP if doing well. Then f/u as needed. Balance/Gait/Functional tests Balance/Special Test Scores Functional Gait Assessment Score: 28 % Disability: 6.6700 Oswestry Low Back Score: 4 Goals Goals Goal 1:: ST: 0/10 pain and I appropriate HEP for LE [id number] and postural LE strength and isometric core ex Goal Time Frame: 4-6 Weeks Goal Progress: Goal Met Goal 2:: LT: patient able to walk and climb steps without weakness or pain reciprocally without rail Goal Time Frame: 8-12 Weeks Goal Progress: Goal Met Goal 3:: Plan to return to golf Goal Time Frame: 8-12 Weeks Goal Progress: Progressing, appropriate Goal 4:: Hike with family without pain or problems Goal Time Frame: 6-8 Weeks Goal Progress: Goal Met, in city. Goal 5:: basck oswestry 5 or lless Goal Time Frame: 8-12 Weeks Goal Progress: Goal Met Goal 6:: Add safely other machine exercises in gym and I without problems Goal Time Frame: 4-6 Weeks Goal Progress: NEW GOAL Anticipated Interventions Anticipated Interventions Patient/Client Instruction: Educate patient on: Condition For the Purpose of:: To decrease pain, To increase ROM, To improve nutrient delivery to tissue, To improve muscle performance and motor function, To increase tolerance to activity/condition/positi on and To improve ability of physical actions for home/community/work/leisu re Therapeutic Exercise to Include: Strength training, Postural training, Flexibilty training, Passive ROM, Active ROM and Dynamic Lumbar Stabilization For the Purpose of:: To decrease pain, To increase ROM, To improve nutrient delivery to tissue, To improve muscle performance and motor function, To increase tolerance to activity/condition/positi on, To improve ability of physical actions for home/community/work/leisu re and To improve gait and locomotor functions Manual Therapy Techniques to Include: Scar massage For the Purpose of:: To increase ROM Cryotherapy (ice pack, ice massage): Yes For the Purpose of:: To decrease pain and To decrease swelling/inflammation Re-Evaluation Ending Re-evaluation ending: Please do not hesitate to contact me at [phone] by phone or if you have questions or concerns regarding this new plan of care! Sincerely, Toma Narayan, DPT, OCS, CSCS 12/05/23 2421 CC: Marianna Doll DO; LEI JACOBSON EBG Signed For Medicare only, by signing this I certify the plan of care. ___ Physicians Signature Date Normal [facility] Inital Evaluation (1) - PTon 10-08-2023 Inital Evaluation (1) - PT [facility] [address] [place] [address] / REHABILITATION SERVICES INITIAL EVALUATION MR#: [id number] Acct: [id number] Name: ANGELO ALEMAN Rep #: [id number] : 1975 48 From: Toma Narayan DPT, LASHAUN, CSCS Referring DrBin: Status: REG RCR Insurance: [facility] INSURANCE Patient's Visit Information Visit Information Visit Information: ANGELO ALEMAN is a 48 year old M referred to Physical Therapy by LEI JACOBSON with a diagnosis of s/p anterior discectomy and L45 fusion 09/13/23. Date of Evaluation: 10/08/23 Physical Therapist: Toma Narayan DPT, LASHAUN, CSCS Visit Plan Frequency: 2x /Week Duration: 3 Months Plan: 2x/week for up to 3 months for No bend twist or lift for first 6 weeks, careful after that. 1. isometric core strength to HEP nad teach gym UE, LE and isometric core for I. 2. HEP progression core strength and ROM when tolerated./allowed 3. Funcitonal progression, body mechanics for function. scar massage as needed. ice as needed. Subjective Subjective: 09/13/23 fusion, discectomy L45. Pain since surgery is just surgical. It has taken care of all the nonsurgical pain and numbness that was present prior. Lingering L leg pain since surgery which was not present prior as his symptoms were R legged. L leg improving. Precautions No BTL for 6 weeks. Brace is worn outside of house. Precautions: no bend twist lift. 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 HEP: none. Has been walking. did a mile yesterday, some muscle soreness in legs but not in back. has cane but not using at home. Hobbies: Hike and golf. Basic ADLs: Dresses self , struggles with socks due to bending. Bathroom I. steps are not a problem. Pain LB: Pain Intensity (Out of 10): 1 Pain Intensity Range: 0 and 2 Comment: tender anterior incision Objective Objective: Walks in with cane but does not need it. I ambulation and stiff trasnfers careful of bending and twisting but I bed and chair. steps reciprocally with one rail with some R leg weakness. Walking on toes is weaker on R. Incisions are two posterior healed well, anterior with strips in place and dry. No signs of excessive redness, heat or swelling, moderate scar tissue R post incision and anterior incision. LB AROM flexion and ext adn SB Not tested. LE strength ankles 4- R and 4L, knees 4 B, hips 4-. max tightness HS at -45 90/90 and mod in quads. Full aROM at hips and knees and ankles WFL. reflexes 2/3 patella and achilles sensation EL WNL ot gross light touch. Balance/Special Test Scores Functional Gait Assessment Score: 28 % Disability: 6.6700 Oswestry Low Back Score: 21 Goals Goal 1:: ST: 0/10 pain and I appropriate HEP for LE [id number] and postural LE strength and isometric core ex Goal Time Frame: 4-6 Weeks Goal 2:: LT: patient able to walk and climb steps without weakness or pain reciprocally without rail Goal Time Frame: 8-12 Weeks Goal 3:: Plkan to return to golf Goal Time Frame: 8-12 Weeks Goal 4:: Hike with family without pain or problems Goal Time Frame: 6-8 Weeks Goal 5:: basck oswestry 5 or lless Goal Time Frame: 8-12 Weeks Rehabilitation Potential Physical Therapy Diagnosis: pain and stiffness and weakness limiting funciton Rehabilitation Potential: Good Anticipated Interventions Patient/Client Instruction: Educate patient on: Condition For the Purpose of:: To decrease pain, To increase ROM, To improve nutrient delivery to tissue, To improve muscle performance and motor function, To increase tolerance to activity/condition/positi on and To improve ability of physical actions for home/community/work/leisu re Therapeutic Exercise to Include: Strength training, Postural training, Flexibilty training, Passive ROM, Active ROM and Dynamic Lumbar Stabilization For the Purpose of:: To decrease pain, To increase ROM, To improve nutrient delivery to tissue, To improve muscle performance and motor function, To increase tolerance to activity/condition/positi on, To improve ability of physical actions for home/community/work/leisu re and To improve gait and locomotor functions Manual Therapy Techniques to Include: Scar massage For the Purpose of:: To increase ROM Cryotherapy (ice pack, ice massage): Yes For the Purpose of:: To decrease pain and To decrease swelling/inflammation Text: Thank you for the opportunity to evaluate your patient. For Medicare and Medicare HMO plans, please review the plan of care and approve it. It will need to be FAXED BACK to us at [phone] for Medicare purposes. For Medicare only, by signing this I certify the plan of care. Please let me know if there are questions or concerns regarding this plan of care. Physician Signature: Date: (more content not included)... [facility] 3609-06-2023 36 Received approved authorization for Zandra with Dr. Cain's office. Inpatient Auth# [id number] Surgical Auth# [id number] [facility] 3608-23-2023 36 SURGERY: CCOC FOR DR Bin CAIN OPEN & CLOSE ALIF L4-5 DATE OF SURGERY: 09/13/2023 AT 9:00AM AUTH #: ZANDRA PINEDA WITH DR. CAIN'S OFFICE IS OBTAINING AUTH FOR DR. CAIN AND DR. CURRY. PENDING [facility] PT D/C Summary (1)on 023 PT D/C Summary (1) [facility] Physical Therapy [facility] [place] [address] / REHABILITATION SERVICES DISCHARGE SUMMARY MR#: [id number] Acct: [id number] Name: ANGELO ALEMAN Rep #: [id number] : 1975 48 From: Toma Narayan DPT, OCS, CSCS Referring : Status: REG RCR Insurance: [facility]Y INSURANCE Discharge Summary D/C summary: It has been my pleasure to treat ANGELO ALEMAN referred by LEI JACOBSON, with the diagnosis of Congenital stenosis of lumbar for a total of 18 visit(s). Discharge Date: 07/23/23 Please see the following information for a summary of their discharge status. Subjective Subjective: Feel alot stronger. Still pain with sitting and getting up to 7/10 in am and if sits too long. Moving around feels good. Avoids bending alot. Sleeping is OK but getting up is a problem. HEP: doing all the stretching and strengthening at home. To [facility] in one week. may have another surgery/fusion which patient welcomes if it will get rid of pain. Pain LBP and R leg: Pain Intensity (Out of 10): 0 Overall Improvement % Improvement: 60 Objective Objective/Function: Sit to stand is normal but has L deviaiton upon standing from seated position. Posture is still crummy without support. A few extension in standing seem to get rid of his shift but back immediately if sits 5 minutes. most bothersome in morning. Back ext still hesitant but able and improves his ROM. Back flexion is still very hesitant and not improving. SB are not painful. Goals Goal 1:: patient walk into therapy without a L deviation Goal Progress: Not Progressing Goal 2:: pain in LB 75% better and 1/10 at worst Goal Progress: Progressing Goal 3:: I appropriate strength DLS and posture to manage condition Goal Progress: Goal Met Goal 4:: Pt able to get out of bed and chair without hesitation Goal Progress: Not Progressing Goal 5:: oswestry score 4 or better Goal Progress: Not Progressing Goal 6:: flex FW to touch toes without deviation or hesitation. Goal Progress: Not Progressing Plan Plan: d/c, pt to continue HEP of ext to loosen up and strength, f/u with doctor regarding other options due to instability in disc in back. D/C Information Discharge Comments: to doctor for next medical step. d/c sentence: If there are questions or concerns regarding this patient's physical therapy, please feel free to call me at [phone]. Thank you for the referral of this patient. Sincerely, Toma Narayan, ALBANT, OCS, CSCS Balance/Gait/Functional tests Balance/Special Test Scores Oswestry Low Back Score: 13 Improvement % Improvement: 60 07/23/23 1616 CC: Marianna Doll, DO; LEI JACOBSON EBG Signed Normal [facility] Re-Evaluation - PT (1)on Re-Evaluation - PT (1) [facility] [address] [facility] [place] [address] / REEVALUATION / MEDICARE RECERTIFICATION PHYSICAL THERAPY MR#: [id number] Acct: [id number] Name: ANGELO LAEMAN Rep #: [id number] : 1975 48 From: Toma Narayan DPT, OCS, CSCS Referring DrBin: Status:REG RCR Insurance: [facility] [facility] INSURANCE Re-Evaluation Intro: LEI JACOBSON, It has been my pleasure to treat ANGELO ALEMAN over the last 11 visits for Congenital stenosis of lumbar. Please see the progress note below for an update on the physical therapy plan of care! Subjective Subjective: Can loosen up pretty good with side glide ex and not really limited with home activity once he does. However, sitting >5 minutes will usually make him stiff and might make him crooked although he notices this less. to Dr. Cain in July. once correctex, not really a problem with life. Sitting at desk can loosen up with exercises. Bending is slow and limited. Objective Objective/Function: Still crummy [posteriorly tilted pelvis and flexion moment in lumbar area in sitting in the waiting room on phone. Still R deviation slightly in stance and corrected with SGIS. Sitting multiple times today with towel roll and lordosis maintained and gets up much easier. First flexion in stand was slow and avoided R side but 10th was fast and easy and without ext deficits or SB deficits afterwards. same and new goals and fair to questionable prognosis. Pt to doctor in 6 weeks and cannot get in sooner so will continue PT until something changes there or progress halts. Plan Plan Plan: POC 2x/week for 4 weeks... 1. please get more aggressive with gym based jena and db ex for core strength in neutral spine and work to I at gym. 2. Please experiment with flexion stretches and yoga stretches for LB scarring and HS I gave him flex in standing to add to HEP today 10x in evening and PPU or eis afterwards. Montior his progress with straightness in this ex. Balance/Gait/Functional tests Balance/Special Test Scores Oswestry Low Back Score: 13 Goals Goals Goal 1:: patient walk into therapy without a L deviation Goal Time Frame: 2-4 Weeks Goal Progress: not completely, approp Goal 2:: pain in LB 75% better and 1/10 at worst Goal Time Frame: 4-6 Weeks Goal Progress: 50%, appropriate. Goal 3:: I appropriate strength DLS and posture to manage condition Goal Time Frame: 4-6 Weeks Goal Progress: needs gym, approp Goal 4:: Pt able to get out of bed and chair without hesitation Goal Time Frame: 4-6 Weeks Goal Progress: Goal Met in clinic Goal 5:: oswestry score 4 or better Goal Time Frame: 4-6 Weeks Goal Progress: Not Progressing Goal 6:: flex FW to touch toes without deviation or hesitation. Goal Time Frame: 2-4 Weeks Goal Progress: NEW GOAL Anticipated Interventions Anticipated Interventions Patient/Client Instruction: Educate patient on: Condition and Plan of Care For the Purpose of:: To decrease pain, To decrease swelling/inflammation, To increase ROM, To improve nutrient delivery to tissue, To improve muscle performance and motor function and To increase tolerance to activity/condition/positi on Therapeutic Exercise to Include: Strength training, Postural training, Flexibilty training, Passive ROM and Active ROM For the Purpose of:: To decrease pain, To decrease swelling/inflammation, To increase ROM, To improve nutrient delivery to tissue, To improve muscle performance and motor function, To improve ability of physical actions for home/community/work/leisu re and To improve gait and locomotor functions Manual Therapy Techniques to Include: Mobilization and Passive ROM For the Purpose of:: To decrease pain, To increase ROM and To improve nutrient delivery to tissue TENS: Yes (LB) Cryotherapy (ice pack, ice massage): Yes For the Purpose of:: To decrease pain Re-Evaluation Ending Re-evaluation ending: Please do not hesitate to contact me at [phone] by phone or if you have questions or concerns regarding this new plan of care! Sincerely, Toma Narayan DPT, OCS, CSCS 06/26/23 1700 CC: Marianna Doll DO; LEI JACOBSON EBG Signed For Medicare only, by signing this I certify the plan of care. ___ Physicians Signature Date Normal [facility] Inital Evaluation (1) - PTon 05-13-2023 Inital Evaluation (1) - PT [facility] [address] [place] [address] / REHABILITATION SERVICES INITIAL EVALUATION MR#: [id number] Acct: [id number] Name: ANGELO ALEMAN Rep #: [id number] : 1975 48 From: Toma Narayan DPT, OCS, CSCS Referring DrBin: Status: REG RCR Insurance: [facility] INSURANCE Patient's Visit Information Visit Information Visit Information: ANGELO ALEMAN is a 48 year old M referred to Physical Therapy by LEI JACOBSON with a diagnosis of Congenital stenosis of lumbar. Date of Evaluation: 05/13/23 Physical Therapist: Toma Narayan DPT, OCS, CSCS Visit Plan Frequency: 2x /Week Duration: 4-6 Weeks Plan: 2x/week for 4-6 weeks for 1. Postural focus with lumbar lordosis and towel roll to stabilize deviation in lumbar area 2. Gloria R SGIS to ext ex and progression of forces to limit symptoms and postural deviaitons, mobs as needed.(PA vs Side) 3. DLS in neutral postiion to HEP(pt already doing HS stretch , calf stretch, bridging, cat camel, PPU and R SGIS) TENS and ice if needed HEP reviewed with patinet today: R SGIS to maintain neutral spine position and at least every two hours, Posture with towel roll, activity mod to avoid sitting and standing and keep moving in upright position, avoid FW bending. Subjective Subjective: Back started hurting again recently. Always been sore stiff in am. Has been stretching every morning for years. This summer was good, Hiked in [place] and played golf all summer. 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 Getting up out of chair feels like he is sideways. LBP moved down into R leg in quad/thigh. Symptoms are worse with standing, sitting in chair is painfree. Feels crooked to stand and move. bending is problematic. Has to brace self to bend over as he is leary of pain. H/o microdiscectomy in 2018 and 2019. Both of which helped. Stretches in am include HS supine with band, ITB with band, bridges, bugs, pressups, cat /camel, gastroc stretches. Stiff in am until stretches, then worse again later in day. 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 Basic ADLs getting done slowly and stiff Pain LBP and R leg: Pain Intensity (Out of 10): 0 Pain Intensity Range: 0 and 5 Comment: 0 sitting, later in day worse. Objective Objective: L deviation in stance upon arising from chair of pelvis. Deviates L with back bending. Slow but I exit from chair, labored. Walks I into PT. Lumbar aROM ext mod limited and L deviation. SB are min limited, flexion slow and hesitant but not painful, deviates L. - SLR, - slump. Sitting posture is posteriorly tilted in pelvis and kyphotic in lumbar region until cued. [id number] 1/3 patella adn achilles Sensation LE WNL to gross light touch. strength hips 4- and knees 4+ and ankles 4+ without myotomal problems. Balance/Special Test Scores Oswestry Low Back Score: 13 Goals Goal 1:: patient walk into therapy without a L deviation Goal Time Frame: 2 Weeks Goal 2:: pain in LB 75% better and 1/10 at worst Goal Time Frame: 4-6 Weeks Goal 3:: I appropriate strength DLS and posture to manage condition Goal Time Frame: 4-6 Weeks Goal 4:: Pt able to get out of bed and chair without hesitation Goal Time Frame: 4-6 Weeks Goal 5:: oswestry score 4 or better Goal Time Frame: 4-6 Weeks Rehabilitation Potential Physical Therapy Diagnosis: LBP likely discal pathology limiting funciton and comfort. Rehabilitation Potential: Fair Anticipated Interventions Patient/Client Instruction: Educate patient on: Condition and Plan of Care For the Purpose of:: To decrease pain, To decrease swelling/inflammation, To increase ROM, To improve nutrient delivery to tissue, To improve muscle performance and motor function and To increase tolerance to activity/condition/positi on Therapeutic Exercise to Include: Strength training, Postural training, Flexibilty training, Passive ROM and Active ROM For the Purpose of:: To decrease pain, To decrease swelling/inflammation, To increase ROM, To improve nutrient delivery to tissue, To improve muscle performance and motor function, To improve ability of physical actions for home/community/work/leisu re and To improve gait and locomotor functions Manual Therapy Techniques to Include: Mobilization and Passive ROM For the Purpose of:: To decrease pain, To increase ROM and To improve nutrient delivery to tissue TENS: Yes (LB) Cryotherapy (ice pack, ice massage): Yes For the Purpose of:: To decrease pain Text: Thank you for the opportunity to evaluate your patient. For Medicare and Medicare HMO plans, please review the plan of care and approve it. It will need to be FAXED BACK to us at [phone] for Medicare purposes. For Medicare only, by signing this I certify the plan of care. (more content not included)... Normal [facility] PSA Total+%Freeon 04-09-2023 PSA, FREE 0.50 ng/mL Normal N/A [facility] Comment on above: Result Comment: Puneet GALLAGHER methodology. Performed By: #### L 3110.0500 #### [facility] [address] [place], [address] PSA, FREE % 18.3 Normal . [facility] Comment on above: Result Comment: The table below lists the probability of prostate cancer for men with non-suspicious MARIBEL results and total PSA between 4 and 10 ng/mL, by patient age (Antonella et al, JAYE 1998, 279:1542). % Free PSA 50-64 yr 65-75 yr 0.00-10.00% 56% 55% 10.01-15.00% 24% 35% 15.01-20.00% 17% 23% 20.01-25.00% 10% 20% >25.00% 5% 9% Please note: Antonella et al did not make specific recommendations regarding the use of percent free PSA for any other population of men. Performed at: [address] [id number] Vice President Of Engineering: Koby Garcia PhD, Phone: [phone] Performed By: #### L 3110.0500 #### [facility] [address] [place], [address] PSA, TOTAL ULTR 2.730 ng/mL Normal 0.000-4.000 [facility] Comment on above: Result Comment: Puneet floyd ECLIA methodology. According to the [employer] [employer], Serum PSA should decrease and remain at undetectable levels after radical prostatectomy. The AUA defines biochemical recurrence as an initial PSA value 0.200 ng/mL or greater followed by a subsequent confirmatory PSA value 0.200 ng/mL or greater. Values obtained with different assay methods or kits cannot be used interchangeably. Results cannot be interpreted as absolute evidence of the presence or absence of malignant disease. Performed By: #### L 3110.0500 #### [facility] [address] [place], [address] No Panel InformationOrdered By: Marianna Doll on 04-08-2023 Percent Free Prostate Specific Ag 0.50 ng/mL N/A [facility] Comment on above: Megan ECLIA methodol ogy. Prostate Specific Ag, Ultra-Sensitv 2.730 ng/mL 0.000-4.000 [facility] Comment on above: Megan ECLIA methodol ogy.According to the [employer] [employer], Serum PSAshould decrease and remain at undetectable levels afterradical prostatectomy. The AUA defines biochemicalrecurrence as an initial PSA value 0.200 ng/mL or greaterfollowed by a subsequent confirmatory PSA value 0.200 ng/mLor greater. Values obtained with different assay methods orkits cannot be used interchangeably. Results cannot beinterpreted as absolute evidence of the presence or absenceof malignant disease. Prostate Specific Antigen Total 3.17 ng/mL 0.0-4.0 [facility] Comment on above: This test was perfor med using the TPSA assay method for the[employer]eg[employer] technologies chemistry system. Values obtained with differentassay methods cannot be used interchangably.When changing PSA assays in the course of monitoring apatient, additional sequential testing should be carriedout to confirm baseline values. PSA,Total- Diagnosticon 08-0 PSA, DIAGNOSTIC 3.17 ng/mL Normal 0.0-4.0 [facility] Comment on above: Order Comment: Order Date: 03/04/23 Order Info: [id number] - PSAD Result Comment: This test was performed using the TPSA assay method for the [employer] chemistry system. Values obtained with different assay methods cannot be used interchangably. When changing PSA assays in the course of monitoring a patient, additional sequential testing should be carried out to confirm baseline values. Performed By: #### L 501.9940 #### [facility] [address] [place], [address] Serum or plasma free prostat e specific antigen/total prostate specific antigen ratioOrdered By: Marianna Doll on 04-08-2023 Free PSA/Total PSA [Mass fraction] 18.3 % . [facility] Comment on above: The table below list s the probability of prostate cancer formen with non-suspicious MARIBEL results and total PSA between4 and 10 ng/mL, by patient age (Antonella et al, JAYE 1998,279:1542). % Free PSA 50-64 yr 65-75 yr 0.00-10.00% 56% 55% 10.01-15.00% 24% 35% 15.01-20.00% 17% 23% 20.01-25.00% 10% 20% >25.00% 5% 9%Please note: Antonella et al did not make specific recommendations regarding the use of percent free PSA for any other population of men.Performed at: [facility] [id number] Director: Koby aGrcia PhD, Phone: [phone] Colonoscopyon 02-22-2023 Colonoscopy [facility] Gastrointestinal Endoscopy Patient Name: Angelo Aleman Procedure Date: 02/22/2023 8:00 AM Date of : 1975 Admit Type: Outpatient Age: 48 Gender: Male Note Status: Finalized Procedure: Colonoscopy Indications: Screening for colorectal malignant neoplasm Providers: Sonya Neri MD Patient Profile: Refer to note in patient chart for documentation of history and physical. Last Colonoscopy: none. The patient's first colonoscopy is today. Referring Physician: Hali Cifuentes (pa) (Referring ), Marianna Doll (Referring ) Medicines: Midazolam 7 mg IV, Fentanyl 100 micrograms IV, Diphenhydramine 50 mg IV Complications: No immediate complications. Requesting Provider: Procedure: Pre-Anesthesia Assessment: - Prior to the procedure, a History and Physical was performed, and patient medications and allergies were reviewed. The patient is competent. The risks and benefits of the procedure and the sedation options and risks were discussed with the patient. All questions were answered and informed consent was obtained. Patient identification and proposed procedure were verified by the physician in the pre-procedure area. Mental Status Examination: alert and oriented. Airway Examination: normal oropharyngeal airway and neck mobility. Respiratory Examination: clear to auscultation. CV Examination: normal. Prophylactic Antibiotics: The patient does not require prophylactic antibiotics. Prior Anticoagulants: The patient has taken no anticoagulant or antiplatelet agents. ASA Grade Assessment: II - A patient with mild systemic disease. After reviewing the risks and benefits, the patient was deemed in satisfactory condition to undergo the procedure. The anesthesia plan was to use moderate sedation / analgesia (conscious sedation). Immediately prior to administration of medications, the patient was re-assessed for adequacy to receive sedatives. The heart rate, respiratory rate, oxygen saturations, blood pressure, adequacy of pulmonary ventilation, and response to care were monitored throughout the procedure. The physical status of the patient was re-assessed after the procedure. After I obtained informed consent, the scope was passed under direct vision. Throughout the procedure, the patient's blood pressure, pulse, and oxygen saturations were monitored continuously. The Colonoscope was introduced through the anus and advanced to the cecum, identified by the appendiceal orifice, ileocecal valve and palpation. The colonoscopy was performed without difficulty. The patient tolerated the procedure well. The quality of the bowel preparation was suboptimal. There was still retained fecal material which required lavage and aspiration to visualize the cobos adequately. This was done, but took some time, however, the cobos were visualized adequately. The terminal ileum, the appendiceal orifice and the rectum were photographed. Moderate Sedation: The administration of moderate sedation was initiated at 08:36 AM. Moderate (conscious) sedation was personally administered by the endoscopist. The following parameters were monitored: oxygen saturation, heart rate, blood pressure, respiratory rate, EKG, adequacy of pulmonary ventilation, and response to care. Total physician intraservice time was 27 minutes. Findings: The perianal and digital rectal examinations were normal. Non-bleeding internal hemorrhoids were found. A 6 to 9 mm polyp was found in the rectum. The polyp was sessile. The polyp was removed with a hot snare. Resection and retrieval were complete. Verification of patient identification for the specimen was done by the nurse. Estimated blood loss was minimal. Impression: - Non-bleeding internal hemorrhoids. - One 6 to 9 mm polyp in the rectum, removed with a hot snare. Resected and retrieved. Recommendation: - Repeat colonoscopy date to be determined after pending pathology results are reviewed for surveillance. - Follow up with Hali Cifuentes PA-C via televisit for discussion of pathology results and determination of timing of future endoscopies - Patient has a contact number available for emergencies. The signs and symptoms of potential delayed complications were discussed with the patient. Return to normal activities tomorrow. Written discharge instructions were provided to the patient. - Continue present medications. - Resume previous diet. Procedure Code(s): --- Professional --- 98490, Colonoscopy, flexible; with removal of tumor(s), polyp(s), or other lesion(s) by snare technique 94984, 59, Moderate sedation services provided by the same physician or other qualified health wound care center consultant performing the diagnostic or therapeutic service that the sedation supports, requiring the presence of an independent trained observer to assist in the monitoring of the patient's level of consc (more content not included)... Normal [facility] HISTORY PHYSICALon HISTORY PHYSICAL HNO ID: [id number] Author: Sonya Neri MD Service: General Surgery Author Type: Physician Type: HANDP Filed: 02/22/2023 7:48 AM Note Text: HISTORY AND PHYSICAL Angelo Aleman 1975 REFERRING PHYSICIAN: No ref. provider found CHIEF COMPLAINT: Consult (colonoscopy) HPI: The patient is a 48 year old male referred for endoscopy. Angelo notes no colon complaints. Patient denies any change in bowel habits, weight changes, blood in stools, black tarry stools or abdominal pain. Denies family history of colon issues. The patient notes no upper GI complaints. Angelo has not undergone prior endoscopy. Patient denies chest pain, shortness of breath or recent hospitalizations. Denies problems with sedation in the past. PAST MEDICAL HISTORY History reviewed. No pertinent past medical history. PAST SURGICAL HISTORY PAST SURGICAL HISTORY Procedure Laterality Date PAST SURGICAL HISTORY OF 03/2017 right jaw surgery PT ED ORTHOPAEDICS 2017 and 2019 VASECTOMY 2010 CURRENT MEDICATIONS No current outpatient medications on file. No current facility-administered medications for this visit. ALLERGIES: Patient has no known allergies. PERSONAL HISTORY: SOCIAL HISTORY Social History Tobacco Use Smoking status: Never Smokeless tobacco: Never Vaping Use Vaping Use: Never used Substance Use Topics Alcohol use: No Drug use: Never FAMILY HISTORY: FAMILY HISTORY FAMILY HISTORY Problem Relation Age of Onset Asthma Mother No Known Problems Father REVIEW OF SYMPTOMS: The review of systems data was entered by the nurse and reviewed by ri Nursing Notes: Kaykay Scanlon LPN 02/19/2023 1:04 PM Signed REVIEW OF SYSTEMS: General: The patient denies fatigue, denies weight loss, denies weight gain, denies feeling hot, and denies feelings of cold. Eyes: The patient denies glaucoma, denies eye injury/surgery, does not wear glasses or contacts. Ear/Nose/Throat: The patient denies allergies, denies hayfever, denies ear infections, and denies bloody noses. Cardiovascular: The patient denies chest pain, denies heart disease, denies high blood pressure,denies cardiac stent, denies prior heart attack, denies irregular heart beat, denies high cholesterol, denies poor circulation, denies heart failure, other cardiac issues, denies claudication, denies cold feet, denies peripheral arterial stent. Respiratory: The patient denies tuberculosis, denies pneumonia, denies frequent cough, denies pulmonary embolism, denies shortness of breath, and denies coughing up blood. Gastrointestinal: The patient denies difficulty swallowing, denies acid reflux, denies ulcers, denies vomiting, denies jaundice/hepatitis, denies gallbladder problems, denies black or tarry stools, denies hemorrhoids, denies bleeding from rectum, denies diverticulitis, denies constipation, denies diarrhea, denies loss of stool control, and denies hernias. Kidney/Bladder: The patient denies kidney stones, denies urine infections, and denies bloody urine. Skin: The patient denies a history of skin cancer, denies bleeding/changing moles, and denies a history of skin rash. Neurologic: The patient denies a history of epilepsy/convulsions, denies headaches, denies head/spinal injuries, and denies stroke/TIA. Psychiatric: The patient denies psychiatric medications, denies depression, and denies voices, denies substance abuse. Endocrine: The patient denies thyroid disorders, denies diabetes, and denies hormonal problems. Hematologic: The patient denies a history of bruising, denies bleeding, and denies anemia, denies blood clots. Infections: The patient denies a history of measles and mumps, denies rheumatic fever, and denies sexually transmitted diseases. Musculoskeletal: The patient denies back pain/injury, NOTES back problems, denies sciatica, denies knee/foot trouble, denies arthritis, or denies gout. When was patient's last Mammogram screening? N/A Last Colonoscopy: no prior Kaykay Scanlon LPN I have confirmed and edited as necessary, the PFSH and ROS obtained by others. Hali Cifuentes PA-C PHYSICAL EXAMINATION: General: The patient is 48 year old male, well nourished, well hydrated in no acute distress. The patient is oriented to time, place, and person. VITALS: Blood pressure 118/82, pulse 84, temperature 36.3 ?C (97.4 ?F), height 195.6 cm (6' 5), weight 125.9 kg (277 lb 9.6 oz), SpO2 98 %. Body mass index is 32.92 kg/m?. HEENT: Normal cephalic, ataumatic, pupils are equally round, sclera are anicteric, mucous membranes are moist, oropharynx is clear. Neck has no masses, asymmetry or lymphadenopathy. Respiratory: Clear to auscultation and percussion. Normal respiratory excursion and pattern. Cardiac: Examination is regular rate and rhythm. Normal S1/S2 Abdominal exam: Soft, nontender, with no palpable masses. No hepatosplenomegaly. No palpable hernias. Extremities: no clubbing, (more content not included)... Normal [facility] NURSING PROGon 02-22-2023 NURSING PROG HNO ID: [id number] Author: Indy Estevez RN Service: ? Author Type: Registered Nurse Type: Nursing Progress Note Filed: 02/22/2023 9:26 AM Note Text: Arrived in phase II via cart. Left lateral position. Sedated, but responds to verbal stimuli. Color normal; skin warm and dry. Respirations wnl and unlabored. Abdomen soft and with + bowel sounds in quads X 4. Patient resting comfortably. Family at bedside. Indy Estevez RN Normal [facility] SURGICAL PATHOLOGYon 023 CASE REPORT Normal [facility] Comment on above: Order Comment: Clover mcintyre Type: TISSUE SPECIMEN Ordering Facility: [facility] Address: [address] [place] [address] Result Comment: Surg ica Pathology Report Case: [id number] Authorizing Provider: Sonya Neri MD Collected: 02/22/2023 09:04 AM Ordering Location: Ambulatory Surgery Received: 02/22/2023 01:25 PM Pathologist: Vania Ordonez MD Specimen: RECTAL POLYP Performed By: #### S #### [facility] CLIA [id number] [address] [place] [address] OF [facility] DIAGNOSIS COMMENT A. This case was rev iewed with Dr. Spears, who concurs. Normal [facility] Comment on above: Order Comment: Clover mcintyre Type: TISSUE SPECIMEN Ordering Facility: [facility] Address: [address] [place] [address] Performed By: #### S #### [facility] CLIA [id number] [address] [place] [address] FINAL DIAGNOSIS Normal [facility] Comment on above: Order Comment: Clover mcintyre Type: TISSUE SPECIMEN Ordering Facility: [facility] Address: [address] [place] [address] Result Comment: A. R ectum, polyp, polypectomy: - Tubular adenoma (see comment). Performed By: #### S #### [facility] CLIA [id number] [address] [place] [address] OF [facility] FINAL PERFORMING LAB Normal [facility] Comment on above: Order Comment: Speci men Type: TISSUE SPECIMEN Ordering Facility: [facility] Address: [address] [place] [address] Result Comment: Diag nostic interpretation performed at [facility], [address] [place] [address] CLIA# [id number] Lease Administration Analyst: Rd Parks M.D. Performed By: #### S #### [facility] CLIA [id number] [address] [place] [address] GROSS DESCRIPTION A. RECTAL POLYP Normal [facility] Comment on above: Order Comment: Speci men Type: TISSUE SPECIMEN Ordering Facility: [facility] Address: [address] [place] [address] Result Comment: Rece ived in formalin is one mancia polypoid segment of tissue measuring 0.5 x 0.3 x 0.4 cm. No stalk is present. The line of resection is noted. The specimen is bisected and totally submitted in one cassette[place] [address] JT 02/22/2023 10:43 PM Performed By: #### S #### [facility] CLIA [id number] [address] [place] [address] CNOVon 02-19-2023 CNOV Office Visit (GENSWS ) ----- ANGELO ALEMAN ([id number]) 1975 M Date Time Provider Department 02/19/23 1:00 PM HALI CIFUENTES During your visit today, we recorded the following information about you: Temperature Pulse Blood pressure Weight 97.4 degrees 84/minute 118/82 125.9 kg Height 1.956 m Kaykay Scanlon LPN 02/19/2023 1:04 PM Signed REVIEW OF SYSTEMS: General: The patient denies fatigue, denies weight loss, denies weight gain, denies feeling hot, and denies feelings of cold. Eyes: The patient denies glaucoma, denies eye injury/surgery, does not wear glasses or contacts. Ear/Nose/Throat: The patient denies allergies, denies hayfever, denies ear infections, and denies bloody noses. Cardiovascular: The patient denies chest pain, denies heart disease, denies high blood pressure,denies cardiac stent, denies prior heart attack, denies irregular heart beat, denies high cholesterol, denies poor circulation, denies heart failure, other cardiac issues, denies claudication, denies cold feet, denies peripheral arterial stent. Respiratory: The patient denies tuberculosis, denies pneumonia, denies frequent cough, denies pulmonary embolism, denies shortness of breath, and denies coughing up blood. Gastrointestinal: The patient denies difficulty swallowing, denies acid reflux, denies ulcers, denies vomiting, denies jaundice/hepatitis, denies gallbladder problems, denies black or tarry stools, denies hemorrhoids, denies bleeding from rectum, denies diverticulitis, denies constipation, denies diarrhea, denies loss of stool control, and denies hernias. Kidney/Bladder: The patient denies kidney stones, denies urine infections, and denies bloody urine. Skin: The patient denies a history of skin cancer, denies bleeding/changing moles, and denies a history of skin rash. Neurologic: The patient denies a history of epilepsy/convulsions, denies headaches, denies head/spinal injuries, and denies stroke/TIA. Psychiatric: The patient denies psychiatric medications, denies depression, and denies voices, denies substance abuse. Endocrine: The patient denies thyroid disorders, denies diabetes, and denies hormonal problems. Hematologic: The patient denies a history of bruising, denies bleeding, and denies anemia, denies blood clots. Infections: The patient denies a history of measles and mumps, denies rheumatic fever, and denies sexually transmitted diseases. Musculoskeletal: The patient denies back pain/injury, NOTES back problems, denies sciatica, denies knee/foot trouble, denies arthritis, or denies gout. When was patient's last Mammogram screening? N/A Last Colonoscopy: no prior GODFREY Harris PA-C 02/19/2023 1:30 PM Signed HISTORY AND PHYSICAL Angelo Floyd Ash 1975 REFERRING PHYSICIAN: No ref. provider found CHIEF COMPLAINT: Consult (colonoscopy) HPI: The patient is a 48 year old male referred for endoscopy. Angelo notes no colon complaints. Patient denies any change in bowel habits, weight changes, blood in stools, black tarry stools or abdominal pain. Denies family history of colon issues. The patient notes no upper GI complaints. Angelo has not undergone prior endoscopy. Patient denies chest pain, shortness of breath or recent hospitalizations. Denies problems with sedation in the past. History reviewed. No pertinent past medical history. PAST SURGICAL HISTORY Procedure Laterality Date PAST SURGICAL HISTORY OF 03/2017 right jaw surgery PT ED ORTHOPAEDICS 2017 and 2019 VASECTOMY 2010 No current outpatient medications on file. No current facility-administered medications for this visit. ALLERGIES: Patient has no known allergies. PERSONAL HISTORY: Social History Tobacco Use Smoking status: Never Smokeless tobacco: Never Vaping Use Vaping Use: Never used Substance Use Topics Alcohol use: No Drug use: Never FAMILY HISTORY: FAMILY HISTORY Problem Relation Age of Onset Asthma Mother No Known Problems Father REVIEW OF SYMPTOMS: The review of systems data was entered by the nurse and reviewed by ri Nursing Notes: Kaykay Scanlon LPN 02/19/2023 1:04 PM Signed REVIEW OF SYSTEMS: General: The patient denies fatigue, denies weight loss, denies weight gain, denies feeling hot, and denies feelings of cold. Eyes: The patient denies glaucoma, denies eye injury/surgery, does not wear glasses or contacts. Ear/Nose/Throat: The patient denies allergies, denies hayfever, denies ear infections, and denies bloody noses. Cardiovascular: The patient denies chest pain, denies heart disease, denies high blood pressure,denies cardiac stent, denies prior heart attack, denies irregular heart beat, denies high cholesterol, denies poor circulation, denies heart failure, other cardiac issues, denies claudication, denies cold feet, denies peripheral arterial quan (more content not included)... Normal [facility] Absolute lymphocyte countOrd ered By: Marianna Doll on 02-05-2023 Lymphocytes Auto (Unsp spec) [#/Vol] 1.64 10*3/uL 0.83-4.51 [facility] Basophil percentageOrdered B y: Marianna Doll on 02-05-2023 Basophils/100 WBC (Bld) 1.4 % 0-1 [facility] Bilirubin [Mass/Vol] 0.50 mg/dL 0.20-1.00 [facility] Comment on above: For patients on eltr ombopag therapy, use of Dimension [place] TBIL is not recommended. Chloride [Moles/Vol] 112 mmol/L 98-107 [facility] Cholesterol [Mass/Vol] 150 mg/dL <200 [facility] Comment on above: <200 mg/dL Desirable 200-240 mg/dL Borderline >240 mg/dL High Risk Eosinophils/100 WBC (Bld) 5.7 % 0-5 [facility] Glucose [Mass/Vol] 90 mg/dL 74-106 [facility] Neutrophils (Bld) [#/Vol] 1.8 10*3/uL 2.0-7.7 [facility] Neutrophils/100 WBC (Bld) 42.9 % 47-70 [facility] Potassium [Moles/Vol] 4.9 mmol/L 3.5-5.1 [facility] Protein [Mass/Vol] 7.1 g/dL 6.4-8.2 [facility] Sodium [Moles/Vol] 141 mmol/L 136-145 [facility] Triglyceride [Mass/Vol] 90 mg/dL <199 [facility] Comment on above: The drugs N-Acetylcy steine and Metamizole may falsely depress this assay.Serum Triglycerides Reference Interval Normal <150 mg/dL Borderline high 150 - 199 mg/dL High 200 - 499 mg/dL Very High > or = 500 mg/dL WBC (Bld) [#/Vol] 4.2 10*3/uL 4.4-11.0 [facility] Blood erythrocytes count (nu mber/volume)Ordered By: Marianna Doll on 02-05-2023 RBC (Bld) [#/Vol] 5.38 10*6/uL 4.6-6.2 [facility] Blood hemoglobin measurement (mass/volume)Ordered By: Marianna Doll on 02-05-2023 Hemoglobin (Bld) [Mass/Vol] 14.7 g/dL 13.0-16.5 [facility] Blood lymphocytes/100 leukoc ytesOrdered By: Marianna Doll on 02-05-2023 Lymphocytes/100 WBC (Bld) 39.2 % 19-41 [facility] Blood monocytes/100 leukocyt esOrdered By: Marianna Doll on 02-05-2023 Monocytes/100 WBC (Bld) 10.3 % 0-10 [facility] Blood platelet mean volumeOr dered By: Marianna Doll on 02-05-2023 Platelet mean volume (Bld) [Entitic vol] 9.9 fL 6.2-12.0 [facility] Determination of erythrocyte mean corpuscular volume (MCV)Ordered By: Marianna Doll on 02-05-2023 MCV (RBC) [Entitic vol] 84.9 fL 80-94 [facility] Hematocrit Auto (Bld) [Volum e fraction]Ordered By: Marianna Doll on 02-05-2023 Hematocrit (Bld) [Volume fraction] 45.7 % 40-54 [facility] [facility] - Chemistry and C hemistry - challengeOrdered By: Marianna Doll on 02-05-2023 ALP [Catalytic activity/Vol] 43 U/L 45-117 [facility] ALT [Catalytic activity/Vol] 32 U/L 16-61 [facility] CO2 [Moles/Vol] 26.0 mmol/L 21.0-32.0 [facility] Globulin (S) [Mass/Vol] 3.4 g/dL 2.2-4.2 [facility] Urea nitrogen/Creatinine [Mass ratio] 29.4 mg/mg 10-20 [facility] Laboratory - Hematology and Cell countsOrdered By: Marianna Doll on 06-06-2023 Erythrocyte distribution width (RBC) [Entitic vol] 42.7 fL 35.1-43.9 [facility] Erythrocyte distribution width (RBC) [Ratio] 13.7 % 11.6-14.6 [facility] Immature granulocytes/100 WBC (Bld) 0.500 % 0.0-0.9 [facility] Comment on above: IG% - Immature Granu locytes (promyelocytes, myelocytes and metamyelocytes) > 1% indicates that a LEFT SHIFT is Present. MCH (RBC) [Entitic mass] 27.3 pg 27.0-32.0 [facility] Nucleated RBC/100 WBC (Bld) [Ratio] 0 % 0-5 [facility] MCHC Auto (RBC) [Mass/Vol]Or dered By: Marianna Doll on 02-05-2023 MCHC (RBC) [Mass/Vol] 32.2 g/dL 32-36 [facility] No Panel InformationOrdered By: Marianna Doll on 02-05-2023 Estimated GFR (MDRD) Amer 92 mL/min >60 [facility] Comment on above: GFR Calc Estimated GFR (MDRD) Non-Af Amer 76 mL/min >60 [facility] Comment on above: Non- GFR Calc Prostate Specific Antigen Screen 4.12 ng/mL 0.00-4.00 [facility] Comment on above: This test was perfor med using the TPSA assay method [facility]. Values obtained with differentassay methods cannot be used interchangably.When changing PSA assays in the course of monitoring apatient, additional sequential testing should be carriedout to confirm baseline values. Thyroid Stimulating Hormone (TSH) 1.21 uIU/mL 0.358-3.74 [facility] Platelets bldOrdered By: Yani Doll on 02-05-2023 Platelets (Bld) [#/Vol] 243 10*3/uL 150-450 [facility] Serum or plasma albumin anisha urement (mass/volume)Ordered By: Marianna Doll on 02-05-2023 Albumin [Mass/Vol] 3.7 g/dL 3.2-5.0 [facility] Serum or plasma albumin/glob ulin mass ratioOrdered By: Marianna Doll on 02-05-2023 Albumin/Globulin [Mass ratio] 1.1 {ratio} 0.9-2.4 [facility] Serum or plasma calcium anisha urement (mass/volume)Ordered By: Marianna Doll on 02-05-2023 Calcium [Mass/Vol] 9.3 mg/dL 8.5-10.1 [facility] Serum or plasma cholesterol in HDL measurement (mass/volume)Ordered By: Marianna Doll on 02-05-2023 Cholesterol in HDL [Mass/Vol] 49 mg/dL >40 [facility] Comment on above: The drugs N-Acetylcy steine and Metamizole may falsely depress this assay. Reference Range HDL <40 mg/dL Low HDL Cholesterol HDL >or= 60 mg/dL High HDL Cholesterol Serum or plasma cholesterol in VLDL measurement (mass/volume)Ordered By: Marianna Doll on 02-05-2023 Cholesterol in VLDL [Mass/Vol] 18 mg/dL 5-40 [facility] Serum or plasma creatinine m easurement (mass/volume)Ordered By: Marianna Doll on 02-05-2023 Creatinine [Mass/Vol] 1.09 mg/dL 0.70-1.30 [facility] Comment on above: The validity of the calculated GFR & GFRAA in patients over 70 years has not been determined. Clinical correlation is essential. Serum or plasma low density lipoprotein (LDL) cholesterol measurement (mass/volume)Ordered By: Marianna Doll on 02-05-2023 Cholesterol in LDL [Mass/Vol] 83 mg/dL 0-130 [facility] Serum or plasma urea nitroge n measurement (mass/volume)Ordered By: Marianna Doll on 02-05-2023 Urea nitrogen [Mass/Vol] 32 mg/dL 7-18 [facility] Thin prep Papanicolaou smear with manual screeningOrdered By: Marianna Doll on 02-05-2023 Thin prep Papanicolaou smear with manual screening 17 U/L 15-37 [facility] Thin prep Papanicolaou smear with manual screening 3 5-15 [facility] Whole blood hemoglobin A1c/t otal hemoglobin ratio (mass fraction)Ordered By: Marianna Doll on 02-05-2023 HbA1c (Bld) [Mass fraction] 5.4 % 3.8-5.6 [facility] Comment on above: Normal < 5.7 % Predi abetic 5.7 - 6.4 % Diabetic >or= 6.5 % Please note range changes. Absolute lymphocyte counton 01-26-2022 Lymphocytes Auto (Unsp spec) [#/Vol] 1.64 10*3/uL 0.83-4.51 [facility] Work Phone: Basophil percentageon 2021 Basophils/100 WBC (Bld) 0.9 % 0-1 [facility] Work Phone: Bilirubin [Mass/Vol] 0.50 mg/dL 0.20-1.00 [facility] Work Phone: Comment on above: For patients on eltr ombopag therapy, use of Dimension [place] TBIL is not recommended. Chloride [Moles/Vol] 108 mmol/L 98-107 [facility] Work Phone: Cholesterol [Mass/Vol] 134 mg/dL <200 [facility] Work Phone: Comment on above: <200 mg/dL Desirable 200-240 mg/dL Borderline >240 mg/dL High Risk Eosinophils/100 WBC (Bld) 4.3 % 0-5 [facility] Work Phone: Glucose [Mass/Vol] 85 mg/dL 74-106 [facility] Work Phone: Neutrophils (Bld) [#/Vol] 2.3 10*3/uL 2.0-7.7 [facility] Work Phone: Neutrophils/100 WBC (Bld) 48.9 % 47-70 [facility] Work Phone: Potassium [Moles/Vol] 4.5 mmol/L 3.5-5.1 [facility] Work Phone: Protein [Mass/Vol] 7.3 g/dL 6.4-8.2 [facility] Work Phone: Sodium [Moles/Vol] 139 mmol/L 136-145 [facility] Work Phone: Triglyceride [Mass/Vol] 71 mg/dL [facility] Work Phone: Comment on above: The drugs N-Acetylcy steine and Metamizole may falsely depress this assay.Serum Triglycerides Reference Interval Normal <150 mg/dL Borderline high 150 - 199 mg/dL High 200 - 499 mg/dL Very High > or = 500 mg/dL WBC (Bld) [#/Vol] 4.6 10*3/uL 4.4-11.0 [facility] Work Phone: Blood erythrocytes count (nu mber/volume)on 01-26-2022 RBC (Bld) [#/Vol] 5.05 10*6/uL 4.6-6.2 [facility] Work Phone: Blood hemoglobin measurement (mass/volume)on 01-26-2022 Hemoglobin (Bld) [Mass/Vol] 14.0 g/dL 13.0-16.5 [facility] Work Phone: Blood lymphocytes/100 leukoc yteson 01-26-2022 Lymphocytes/100 WBC (Bld) 35.7 % 19-41 [facility] Work Phone: Blood monocytes/100 leukocyt eson 01-26-2022 Monocytes/100 WBC (Bld) 10.0 % 0-10 [facility] Work Phone: Blood platelet mean volumeon 01-26-2022 Platelet mean volume (Bld) [Entitic vol] 10.3 fL 6.2-12.0 [facility] Work Phone: Determination of erythrocyte mean corpuscular volume (MCV)on 01-26-2022 MCV (RBC) [Entitic vol] 84.6 fL 80-94 [facility] Work Phone: Hematocrit Auto (Bld) [Volum e fraction]on 01-26-2022 Hematocrit (Bld) [Volume fraction] 42.7 % 40-54 [facility] Work Phone: Laboratory - Chemistry and C hemistry - challengeon 01-26-2022 ALP [Catalytic activity/Vol] 40 U/L 45-117 [facility] Work Phone: ALT [Catalytic activity/Vol] 36 U/L 16-61 [facility] Work Phone: CO2 [Moles/Vol] 26.0 mmol/L 21.0-32.0 [facility] Work Phone: Globulin (S) [Mass/Vol] 3.4 g/dL 2.2-4.2 [facility] Work Phone: Urea nitrogen/Creatinine [Mass ratio] 18.9 mg/mg 10-20 [facility] Work Phone: Laboratory - Hematology and Cell countson 01-26-2022 Erythrocyte distribution width (RBC) [Entitic vol] 41.4 fL 35.1-43.9 [facility] Work Phone: Erythrocyte distribution width (RBC) [Ratio] 13.5 % 11.6-14.6 [facility] Work Phone: Immature granulocytes/100 WBC (Bld) 0.200 % 0.0-0.9 [facility] Work Phone: Comment on above: IG% - Immature Granu locytes (promyelocytes, myelocytes and metamyelocytes) > 1% indicates that a LEFT SHIFT is Present. MCH (RBC) [Entitic mass] 27.7 pg 27.0-32.0 [facility] Work Phone: Nucleated RBC/100 WBC (Bld) [Ratio] 0 % 0-5 [facility] Work Phone: MCHC Auto (RBC) [Mass/Vol]on 01-26-2022 MCHC (RBC) [Mass/Vol] 32.8 g/dL 32-36 [facility] Work Phone: No Panel Informationon 01-26 Estimated GFR (MDRD) Amer 81 mL/min >60 [facility] Work Phone: Comment on above: GFR Calc Estimated GFR (MDRD) Non-Af Amer 67 mL/min >60 [facility] Work Phone: Comment on above: Non- GFR Calc Thyroid Stimulating Hormone (TSH) 1.07 uIU/mL 0.358-3.74 [facility] Work Phone: Platelets bldon 01-26-2022 Platelets (Bld) [#/Vol] 270 10*3/uL 150-450 [facility] Work Phone: Serum or plasma albumin anisha urement (mass/volume)on 01-26-2022 Albumin [Mass/Vol] 3.9 g/dL 3.2-5.0 [facility] Work Phone: Serum or plasma albumin/glob ulin mass ratioon 01-26-2022 Albumin/Globulin [Mass ratio] 1.1 {ratio} 0.9-2.4 [facility] Work Phone: Serum or plasma calcium anisha urement (mass/volume)on 01-26-2022 Calcium [Mass/Vol] 9.4 mg/dL 8.5-10.1 [facility] Work Phone: Serum or plasma cholesterol in HDL measurement (mass/volume)on 01-26-2022 Cholesterol in HDL [Mass/Vol] 49 mg/dL [facility] Work Phone: Comment on above: The drugs N-Acetylcy steine and Metamizole may falsely depress this assay. Reference Range HDL <40 mg/dL Low HDL Cholesterol HDL >or= 60 mg/dL High HDL Cholesterol Serum or plasma cholesterol in VLDL measurement (mass/volume)on 01-26-2022 Cholesterol in VLDL [Mass/Vol] 14 mg/dL 5-40 [facility] Work Phone: Serum or plasma creatinine m easurement (mass/volume)on 01-26-2022 Creatinine [Mass/Vol] 1.22 mg/dL 0.70-1.30 [facility] Work Phone: Comment on above: The validity of the calculated GFR & GFRAA in patients over 70 years has not been determined. Clinical correlation is essential. Serum or plasma low density lipoprotein (LDL) cholesterol measurement (mass/volume)on 01-26-2022 Cholesterol in LDL [Mass/Vol] 71 mg/dL 0-130 [facility] Work Phone: Serum or plasma urea nitroge n measurement (mass/volume)on 01-26-2022 Urea nitrogen [Mass/Vol] 23 mg/dL 7-18 [facility] Work Phone: Thin prep Papanicolaou smear with manual screeningon 01-26-2022 Thin prep Papanicolaou smear with manual screening 22 U/L 15-37 [facility] Work Phone: Thin prep Papanicolaou smear with manual screening 5 5-15 [facility] Work Phone: Clinical Summary: Elvin gary 12-18-2021 MC75 OP Visit Invalid Interpretation Code [facility] Work Phone: Clinical Summary: Outcome Banda mmaryon 12-17-2021 Foot and Ankle Disability Index Final Score 77 Invalid Interpretation Code [facility] Work Phone: Foot and Ankle Disability Index question 1 3 Invalid Interpretation Code [facility] Work Phone: Foot and Ankle Disability Index question 10 2 Invalid Interpretation Code [facility] Work Phone: Foot and Ankle Disability Index question 11 2 Invalid Interpretation Code [facility] Work Phone: Foot and Ankle Disability Index question 12 2 Invalid Interpretation Code [facility] Work Phone: Foot and Ankle Disability Index question 13 4 Invalid Interpretation Code [facility] Work Phone: Foot and Ankle Disability Index question 14 4 Invalid Interpretation Code [facility] Work Phone: Foot and Ankle Disability Index question 15 3 Invalid Interpretation Code [facility] Work Phone: Foot and Ankle Disability Index question 16 3 Invalid Interpretation Code [facility] Work Phone: [phone] Foot and Ankle Disability Index question 17 4 Invalid Interpretation Code [facility] Work Phone: [phone] Foot and Ankle Disability Index question 18 4 Invalid Interpretation Code [facility] [place] [facility] Work Phone: [phone] Foot and Ankle Disability Index question 19 3 Invalid Interpretation Code [facility] Work Phone: [phone] Foot and Ankle Disability Index question 2 4 Invalid Interpretation Code [facility] Work Phone: [phone] Foot and Ankle Disability Index question 20 2 Invalid Interpretation Code [facility] Work Phone: [phone] Foot and Ankle Disability Index question 21 3 Invalid Interpretation Code [facility] Work Phone: [phone] Foot and Ankle Disability Index question 22 70 Invalid Interpretation Code [facility] Work Phone: [phone] Foot and Ankle Disability Index question 3 4 Invalid Interpretation Code [facility] Work Phone: [phone] Foot and Ankle Disability Index question 4 3 Invalid Interpretation Code [facility] Work Phone: [phone] Foot and Ankle Disability Index question 5 3 Invalid Interpretation Code [facility] [place] [facility] Work Phone: [phone] Foot and Ankle Disability Index question 6 3 Invalid Interpretation Code [facility] Work Phone: [phone] Foot and Ankle Disability Index question 7 3 Invalid Interpretation Code [facility] [place] [facility] Work Phone: [phone] Foot and Ankle Disability Index question 8 3 Invalid Interpretation Code [facility] Work Phone: [phone] Foot and Ankle Disability Index question 9 3 Invalid Interpretation Code [facility] Work Phone: [phone] diagnostic criteria for SLE #1 3 Invalid Interpretation Code [facility] Work Phone: diagnostic criteria for SLE #10 4 Invalid Interpretation Code [facility] Work Phone: diagnostic criteria for SLE #11 10 Invalid Interpretation Code [facility] Work Phone: diagnostic criteria for SLE #12 17 Invalid Interpretation Code [facility] Work Phone: diagnostic criteria for SLE #13 34.9 Invalid Interpretation Code [facility] Work Phone: diagnostic criteria for SLE #14 56.0 Invalid Interpretation Code [facility] Work Phone: diagnostic criteria for SLE #15 [phone] Invalid Interpretation Code [facility] Work Phone: diagnostic criteria for SLE #2 4 Invalid Interpretation Code [facility] Work Phone: diagnostic criteria for SLE #3 2 Invalid Interpretation Code [facility] Work Phone: diagnostic criteria for SLE #4 4 Invalid Interpretation Code [facility] Work Phone: diagnostic criteria for SLE #5 4 Invalid Interpretation Code [facility] Work Phone: diagnostic criteria for SLE #6 4 Invalid Interpretation Code [facility] Work Phone: diagnostic criteria for SLE #7 4 Invalid Interpretation Code [facility] Work Phone: diagnostic criteria for SLE #8 5 Invalid Interpretation Code [facility] Work Phone: diagnostic criteria for SLE #9 4 Invalid Interpretation Code [facility] Work Phone: Clinical Summary: Scanned Hi story Summaryon 12-17-2021 Beta HCG ( test) Ql (U) Never Invalid Interpretation Code [facility] Work Phone: consumes three or more drinks of alcohol (beer, wine, liquor) daily or almost daily less than 1 drink per day Invalid Interpretation Code [facility] Work Phone: Data entered by patient exercise frequency 5 days per week Invalid Interpretation Code [facility] Work Phone: Data entered by patient exercise type walking, yoga Invalid Interpretation Code [facility] Work Phone: data entered by patient, alcohol (ethanol or ETOH) use Yes Invalid Interpretation Code [facility] Work Phone: data entered by patient, drug (of abuse) use No Invalid Interpretation Code [facility] Work Phone: data entered by patient, Employer Name employed Invalid Interpretation Code [facility] Work Phone: data entered by patient, exercise history Yes Invalid Interpretation Code [facility] Work Phone: Data entered by patient, history of past surgeries Lumbar spine discectomy Invalid Interpretation Code [facility] Work Phone: data entered by patient, social history, current smoker never smoker Invalid Interpretation Code [facility] Work Phone: data entered by patient, social history, marital status Invalid Interpretation Code [facility] Work Phone: father of patient is alive or Alive Invalid Interpretation Code [facility] Work Phone: Housing Type: apartment, house, mcc, trailer, none house Invalid Interpretation Code [facility] Work Phone: housing unit size (asthma environmental history, housing) (from single family to don't know) 3 floors Invalid Interpretation Code [facility] Work Phone: mother of patient is alive or Alive Invalid Interpretation Code [facility] Work Phone: Number of dependent children No Invalid Interpretation Code [facility] Work Phone: MRI LUMBAR SP W/WO CONTRASTo n 05-04-2020 MRI LUMBAR SP W/WO CONTRAST MRI LUMBAR SP W/WO CONTRAST Ordering Physician: Jihan Horner 05/04/2020 2:47 PM MAGNETIC [facility]ONANCE IMAGING LUMBAR SPINE WITH AND WITHOUT CONTRAST Clinical Statement: Low back pain, right lower extremity radiculopathy TECHNIQUE: Sagittal and axial T1 and T2-weighted MR images of the lumbar spine were obtained before and after the administration of 12 cc of intravenous Gadavist. There were no prior studies available for comparison. FINDINGS: The heights of the vertebral bodies are maintained. There is good alignment anteriorly and posteriorly. No compression fractures are seen. The sagittal images reveal no acute abnormalities in the lower dorsal spine. L1-2: The disk space is maintained. There is minimal anterior osteophyte formation. There is no focal disk herniation. The canal and foramina are patent. There is mild degenerative change of the facet joints. L2-3: The disk space is maintained. There is good alignment anteriorly and posteriorly. There are mild degenerative changes of the facet joints. The canal and foramina are patent. There is no focal disk herniation. L3-4: The disk space is maintained. There is minimal circumferential disk protrusion. There are mild degenerative changes of the liver is mild canal stenosis. The foramina are patent. L4-5: There is degenerative disk disease. There is a large focal disk herniation on the right. There is impingement on the nerve roots of the cauda equina on the right especially the right L5 nerve. There are moderate degenerative changes of the facet joints. There is mild narrowing of the foramina due to disk protrusion. There are postsurgical changes with enhancing scar tissue posteriorly. There is also epidural enhancement felt to be related to the prior surgery. There is mild enhancement along the margin of the disk herniation compatible with inflammation. L5-S1: There is mild degenerative disk disease with circumferential disk protrusion. There is mild narrowing the foramina. There are degenerative changes of the facet joints. IMPRESSION: Large disk herniation at L4-5 on the right with compression on the nerve roots of the adjacent cauda equina and especially right L5 nerve or. ---- Electronic Signature on File ---- Signed By: Joshua Fisher MD FACR [email or web address] Dictated: 05/04/2020 3:46 PM Signed: 05/04/2020 3:53 PM Reported By: JOSHUA FISHER M.D. Signed By: JOSHUA FISHER M.D. [facility] Abs Baso <0.03 Normal <0.11 [facility] Comment on above: Performed By: #### C BCDIF, CMP ####[facility] [id number] [place] [address] Abs [place] 0.96 k/uL High <0.87 [facility] Comment on above: Performed By: #### C BCDIF, CMP ####[facility] [id number] [place] [address] Abs Neut 8.33 k/uL High 1.45-7.50 [facility] Comment on above: Performed By: #### C BCDIF, CMP ####[place] [address] Basophils/100 WBC Auto (Bld) 0.1 % Normal [facility] Comment on above: Performed By: #### C BCDIF, CMP ####[place] [address] Eosinophils 10*3/uL Normal <0.46 [facility] Comment on above: Performed By: #### C BCDIF, CMP ####[place] [address] Eosinophils/100 leukocytes 0.1 % Normal [facility] Comment on above: Performed By: #### C BCDIF, CMP ####[place] [address] Erythrocyte distribution width Auto Ratio (RBC) 13.9 % Normal 11.5-15.0 [facility] Comment on above: Performed By: #### C BCDIF, CMP ####[place] [address] Erythrocytes (RBC) 5.23 10*6/uL Normal 4.20-6.00 [facility] Comment on above: Performed By: #### C BCDIF, CMP ####[place] [address] Hematocrit (HCT) 43.7 % Normal 39.0-51.0 [facility] Comment on above: Performed By: #### C BCDIF, CMP ####[facility] [id number] [place] [address] Hemoglobin mass conc (Bld) 14.8 g/dL Normal 13.0-17.0 [facility] Comment on above: Performed By: #### C BCDIF, CMP ####[facility] [id number] [place] [address] Lymphocytes 1.20 10*3/uL Normal 1.00-4.00 [facility] Comment on above: Performed By: #### C BCDIF, CMP ####[place] [address] Lymphocytes/100 leukocytes 11.4 % Normal [facility] Comment on above: Performed By: #### C BCDIF, CMP ####[place] [address] MCH 28.3 pG Normal 26.0-34.0 [facility] Comment on above: Performed By: #### C BCDIF, CMP ####[facility] [id number] [place] [address] MCHC mass conc (RBC) 33.9 g/dL Normal 30.5-36.0 [facility] Comment on above: Performed By: #### C BCDIF, CMP ####[place] [address] MCV 83.6 fL Normal 80.0-100.0 [facility] Comment on above: Performed By: #### C BCDIF, CMP ####[place] [address] Monocytes/100 leukocytes 9.1 % Normal [facility] Comment on above: Performed By: #### C BCDIF, CMP ####[place] [address] Neutrophils/100 WBC Auto (Bld) 79.3 % Normal [facility] Comment on above: Performed By: #### C BCDIF, CMP ####[facility] [id number] [place] [address] Platelet mean volume (PMV) 9.7 fL Normal 9.0-12.7 [facility] Comment on above: Performed By: #### C BCDIF, CMP ####[facility] [id number] [place] [address] Platelets 243 10*3/uL Normal 150-400 [facility] Comment on above: Performed By: #### C BCDIF, CMP ####[facility] [id number] [place] [address] WBC (Leukocytes) 10.51 10*3/uL Normal 3.70-11.00 [facility] Comment on above: Performed By: #### C BCDIF, CMP ####[facility] [id number] [place] [address] Comp Metabolic Panelon 02-07 Alanine aminotransferase (ALT) 15 U/L Normal 10-54 [facility] Comment on above: Performed By: #### C BCDIF, CMP ####[place] [address] Albumin 4.0 g/dL Normal 3.9-4.9 [facility] Comment on above: Performed By: #### C BCDIF, CMP ####[facility] [id number] [place] [address] Alkaline phosphatase (ALP) 36 U/L Normal 36-108 [facility] Comment on above: Performed By: #### C BCDIF, CMP ####[facility] [id number] [place] [address] Anion gap 12 mmol/L Normal 9-18 [facility] Comment on above: Performed By: #### C BCDIF, CMP ####[place] [address] Aspartate aminotransferase (AST) 12 U/L Low 14-40 [facility] Comment on above: Performed By: #### C BCDIF, CMP ####[place] [address] Bilirubin (total) 0.5 mg/dL Normal 0.2-1.3 [facility] Comment on above: Performed By: #### C BCDIF, CMP ####[facility] [address] [place] [address] Calcium 9.2 mg/dL Normal 8.5-10.2 [facility] Comment on above: Performed By: #### C BCDIF, CMP ####[facility] [address] [place] [address] Chloride 104 mmol/L Normal 97-105 [facility] Comment on above: Performed By: #### C BCDIF, CMP ####[facility] [address] [place] [address] CO2 25 mmol/L Normal 22-30 [facility] Comment on above: Performed By: #### C BCDIF, CMP ####[facility] [address] [place] [address] Creatinine 1.05 mg/dL Normal 0.73-1.22 [facility] Comment on above: Performed By: #### C BCDIF, CMP ####[facility] [address] [place] [address] eGFR (non-black) mL/min/{1.73_m2} Normal [facility] Comment on above: Performed By: #### C BCDIF, CMP ####[facility] [address] [place] [address] Result Comment: eGFR (Estimated GFR) Units of measure: mL/min/1.73 meters squaredeGFR is derived from the reexpressed MDRD Study equation using the following parameters: serum creatinine, age, gender and race. The creatinine assay has been calibrated to be traceable to IDMS.An eGFR <60 mL/min/1.73m2 for >3 months is consistent with chronic kidney disease. Refer to KDOQI guidelines for clinical interpretation.In patients with unstable renal function, e.g. those with acute kidney injury, the eGFR may not accurately reflect actual GFR. Glucose mass conc 99 mg/dL Normal 74-99 [facility] Comment on above: Result Comment: The [place] [employer] Association (ADA) provides guidance for cutoff values for fasting glucose and random glucose. The ADA defines fasting as no caloric intake for at least 8 hours. Fasting plasma glucose results between 100 to 125 mg/dL indicate increased risk for diabetes (prediabetes).Fasting plasma glucose results greater than or equal to 126 mg/dL meet the criteria for diagnosis of diabetes. In the absence of unequivocal hyperglycemia, results should be confirmed by repeat testing. In a patient with classic symptoms of hyperglycemia or hyperglycemic crisis, random plasma glucose results greater than or equal to 200 mg/dL meet the criteria for diagnosis of diabetes.Reference: Standards of Medical Care in Diabetes 2016, [place] [employer]. Diabetes Care. 2016.39(Suppl 1). Performed By: #### C BCDIF, CMP ####[facility] [address] [place] [address] Potassium molar conc 4.2 mmol/L Normal 3.7-5.1 [facility] Comment on above: Performed By: #### C BCDIF, CMP ####[facility] [address] [place] [address] Protein 6.6 g/dL Normal 6.3-8.0 [facility] Comment on above: Performed By: #### C BCDIF, CMP ####[facility] [address] [place] [address] Sodium 141 mmol/L Normal 136-144 [facility] Comment on above: Performed By: #### C BCDIF, CMP ####[facility] [address] [place] [address] Urea nitrogen 28 mg/dL High 9-24 [facility] Comment on above: Performed By: #### C BCDIF, CMP ####[facility] [address] [place] [address] ED NOTEon 02-07-2018 ED NOTE HNO ID: [id number] thor: Jenny Graves, FABBYervice: (none)Author Type: Registered NurseType: ED NotesFiled: 02/07/2018 4:55 PMNote Text: Pt was discharged home per wheelchair to his private vehicle isbedside with the discharge Pt is alert and oriented times 3 with hisdischarge He was complaining Of increased pain when he ambulated [facility] ED NOTE HNO ID: [id number] Author: Jenny Graves RN Service: (none) Author Type: Registered Nurse Type: ED Notes Filed: 02/07/2018 4:27 PM Note Text: Dr Julio César yost [facility] ED NOTE HNO ID: [id number] Author: Jenny Graves RN Service: (none) Author Type: Registered Nurse Type: ED Notes Filed: 02/07/2018 4:09 PM Note Text: Pt si in a position of comfort remains bedside [facility] ED NOTE HNO ID: [id number] Author: Jenny (Rn) MARIJA Graves Service: (none) Author Type: Registered Nurse Type: ED Notes Filed: 02/07/2018 3:36 PM Note Text: Pt has returned from MRI per wheelchair is bedside Pt denies needs at the present [facility] ED NOTE HNO ID: [id number] Author: Jenny RoRn) MARIJA Graves Service: (none) Author Type: Registered Nurse Type: ED Notes Filed: 02/07/2018 2:43 PM Note Text: Pt to MRI per wheelchair Tech is at his side remains in the er room 18 [facility] ED NOTE HNO ID: [id number] Author: Marga RoRn) MARIJA Arnold Service: (none) Author Type: Registered Nurse Type: ED Notes Filed: 02/07/2018 2:05 PM Note Text: Hurt back in September, reinjured back 10 days ago with low back pain into right buttock and leg. [facility] ED NOTE HNO ID: [id number] Author: Shannan RoRn) MARIJA Long Service: (none) Author Type: Registered Nurse Type: ED Notes Filed: 02/07/2018 2:01 PM Note Text: Bed: ED-18 Expected date: Expected time: Means of arrival: Comments: Back pain [facility] ED PROV NOTEon 02-07-2018 ED PROV NOTE HNO ID: [id number] thor: KAMRON Sosaervice: (none)Author Type: PhysicianType: ED Provider NotesFiled: 02/07/2018 4:46 PMNote Text:ED Provider NotePatient Name: [facility]MR[facility]: [id number] DATE: 02/07/18HistoryPatient presents with:Low Back Pain: Down right leg into calf with numbnessPatient is a 43-year-old male coming in with back pain going down hisright leg. Patient has had back pain for couple of months but it's beenmild she was doing physical therapy and doing much better. S couple dayshis back pain isn't significantly increased. He was seen here 2 days ago. 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 Go to [facility] emergency department was given Vicodin and a steroid but that didnot seem to help. He was seen here was given injections and then [facility]. Just an MRI was not able to get it cleared for1 week. He has been laying in bed he has been crawling if he needed toget out of bed and using a urinal because he is unable to get up. Patientis now having tingling and numbness in his right calf and foot. He deniesany loss of bowel or bladder function. Most of the pain is in the rightbuttock going down to his footNo past medical history on file.No past surgical history on file.No family history on file.Social HistorySocial History Main Topics- Smoking status: Never Smoker- Smokeless tobacco: Never Used- Alcohol use No- Drug use: Unknown- Sexual activity: Not on fileALLERGIESNo Known AllergiesReview of SystemsConstitutional: Negative for fever.Respiratory: Negative for shortness of breath.Cardiovascular: Negative for chest pain.Gastrointestinal: Negative for vomiting.All other systems reviewed and are negative.Physical ExamBP 134/60 Pulse 70 Resp 20 Ht 6' 5 (1.96m) Wt 250 lb (113.4kg) SpO2 98% BMI 29.64 kg/(m2).Physical ExamConstitutional:Appear s that he does not feel well lying in the bedHENT:Head: Normocephalic and atraumatic.Neck: Neck supple.Cardiovascular: Normal rate and regular rhythm.Pulmonary/Chest: Effort normal and breath sounds normal.Abdominal: Soft. He exhibits no distension. There is no tenderness.Musculoskeleta l:No lumbar tenderness, tenderness over the right SI jointNeurological: He is alert.Skin: Skin is warm and dry.Psychiatric: He has a normal mood and affect.Nursing note and vitals reviewed.Diagnostic TestingED Labs Ordered and ReviewedCOMP METABOLIC PANEL - Abnormal; Notable for the following: Result Value Ref Range AST 12 (*) 14 - 40 U/L BUN 28 (*) 9 - 24 mg/dL All other components within normal limitsCBC + DIFF - Abnormal; Notable for the following: Abs Neut (ANC) 8.33 (*) 1.45 - 7.50 k/uL Abs [place] 0.96 (*) <0.87 k/uL All other components within normal limitsMRI LUMBAR SPINE WO IVCON Final Result IMPRESSION: 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 Continuous Crusher Operator: DEXTER Transcribe Date/Time: Feb 07 2018 3:26P Dictated by : TED VAUGHAN MD This examination was interpreted and the report reviewed and electronically signed by: TED VAUGHAN MD on Feb 07 2018 3:28PM ESTProceduresMedical Decision MakingMDMPatient basic labs mild dehydration BUN at 28 creatinine 1 was given aliter of fluids. MRI showed eccentric disc extrusion at L4 to 5 withsevere canal stenosis and likely preferential compromise of the right X1kggmk root sleeve. This is consistent with his findings. I discussedthis case with Dr. Angelo Cain's nurse practitioner. She stated tofollow-up on Saturday or Saturday in the office. He could schedule surgery.He recommended him being on the prednisone we will change his Vicodin toPercocet. He is advised return with any worsening symptoms or concernsED Course / Clinical ImpressionClinical Impressions as of Feb 07 1646Herniation of right side of L4-L5 intervertebral discAcute right-sided low back pain with right-sided sciaticaPlanThe patient was DISCHARGED: Counseled patient and spouse regarding labresults AND radiology results AND need for follow-up. Discharged home withverbal and written instructions. They were instructed to return as neededfor persistent or worsening symptoms or any new concerns.Condition at time of disposition: stableSIGNATURE: Mayi Houser, Neda Houser MD02/07/186 [facility] MRI LUMBAR SPINE WO IVCONon 02-07-2018 MRI LUMBAR SPINE WO IVCON * * *Final Report* * *DATE OF EXAM: Feb 07 2018 3:19PM [facility] 0303 - MRI LUMBAR SPINE WO IVCON / REASON: L/S-spine stenosis * * * * Physician Interpretation * * * * EXAMINATION: MRI LUMBAR SPINE WO IVCONCLINICAL HISTORY: L/S-spine stenosis. Low back pain with radiation to the right lower extremity.TECHNIQUE: Routine lumbosacral spine MR protocol without gadolinium.MQ: [id number]: None.RESULT:Counting reference: Lumbosacral junction. For the purposes of this report, L4-5 is considered the level of the iliac crest.Alignment: Straightening of the normal lumbar lordosis. Mild disc space narrowing at L4-5. There is relative narrowing of the canal and foramina on a developmental basis.Bone marrow signal/fracture: No evidence of pathologic marrow infiltration. No evidence of prior fracture.Conus: The conus is within normal limits of signal intensity and morphology.Paraspinal soft tissues: Paraspinal soft tissues are within normal limits.Lower thoracic spine: Visualized lower thoracic canal and foramina are patent.T12-L1: Canal and foramina are patent.L1-L2: Canal and foramina are patent.L2-L3: Canal and foramina are patentL3-L4: Canal and foramina are patentL4-L5: Right central disc extrusion, mild facet degenerative changes and developmentally short pedicles with severe canal stenosis and likely differential compromise of the right L5 nerve root sleeve. Neural foramina remain patent.L5-S1: Canal and foramina are patentSacrum and iliac wings: Mild degenerative changes in the right SI joint.IMPRESSION:Eccentri c disc extrusion at L4-5 with severe canal stenosis and likely preferential compromise of the right L5 nerve root sleeve.Continuous Crusher Operator: DEXTER Transcribe Date/Time: Feb 07 2018 3:26PDictated by : TED VAUGHAN MDThis examination was interpreted and the report reviewed and electronically signed by: TED VAUGHAN MD on Feb 07 2018 3:28PM [id number] [facility] ED NOTEon 02-06-2018 ED NOTE HNO ID: [id number] thor: Manish RoRn) FABBY Swanervice: (none)Author Type: Registered NurseType: ED NotesFiled: 02/06/2018 12:42 AMNote Text: Pt given discharge instructions and verablized understanding of follow upcare. Pt stable and ambulatory with assistance on discharge with [facility] ED NOTE HNO ID: [id number] thor: Aleta RoRn) FABBY Stewardervice: NursingAuthor Type: Registered NurseType: ED NotesFiled: 02/05/2018 11:11 PMNote Text:Patient started having lower back stiffness. Pain down buttocks and downright leg. Went [place] [facility] today and was told it was his [place]. [place]. [facility] ED PROV NOTEon 02-06-2018 ED PROV NOTE HNO ID: [id number] thor: Ortega Rogers KAMRON De Santiagoervice: (none)Author Type: PhysicianType: ED Provider NotesFiled: 02/05/2018 11:38 PMNote Text:ED Provider NotePatient Name: Angelo AlemanMRN: [id number] DATE: 02/05/18HistoryPatient presents with:Back PainPatient complains of low back pain, pain in right buttock, radiating downright leg. He was seen in [place] earlier today and is still having pain,despite taking prednisone, flexeril, and Vicodin. He has an appointmentwith spine center tomorrow at 1530, but needs something to get the painunder control tonight.No past medical history on file.No past surgical history on file.No family history on file.Social HistorySocial History Main Topics- Smoking status: Never Smoker- Smokeless tobacco: Not on file- Alcohol use Not on file- Drug use: Unknown- Sexual activity: Not on fileALLERGIESNo Known AllergiesReview of SystemsConstitutional: Negative.HENT: Negative.Eyes: Negative.Respiratory: Negative.Cardiovascular: Negative.Gastrointestinal : Negative.Endocrine: Negative.Genitourinary: Negative.Musculoskeletal: Positive for back pain.Allergic/Immunologic : Negative.Neurological: Positive for numbness.Hematological: Negative.Psychiatric/Beha vioral: Negative.Physical ExamBP 137/69 Pulse 77 Temp (Src) 98.6 (Oral) Resp 16 Wt 261 lb 14.5oz (118.8kg) SpO2 98%Physical ExamConstitutional: He is oriented to person, place, and time. He appearswell-developed and well-nourished.HENT:Head: Normocephalic.Right Ear: External ear normal.Left Ear: External ear normal.Nose: Nose normal.Mouth/Throat: Oropharynx is clear and moist.Eyes: Conjunctivae and EOM are normal.Neck: Normal range of motion. Neck supple.Musculoskeletal:Po sitive straight leg raising sign on right at about 20 degrees. Kneejerk, ankle jerk 2+/4 bilaterally; motor, sensation intact; good plantarand dorsiflexion of feet.Neurological: He is alert and oriented to person, place, and time.Skin: Skin is warm and dry. Capillary refill takes less than 2 seconds.Psychiatric: He has a normal mood and affect. His behavior is normal.Judgment and thought content normal.Nursing note and vitals reviewed.Diagnostic TestingED Labs Ordered and Reviewed - No data to displayProceduresMedical Decision MakingPatient presents with sciatica type pain, suspect lumbar disc disease. Nored flags; he has an appointment with spine center tomorrow. Will giveinjection of Toradol, Dilaudid, Decadron for tonight. The decadron shouldhelp by morning and he should be able to get by with hydrocodone afterthat till seen by spine.MDMED Course / Clinical ImpressionClinical Impressions as of Feb 05 2331Sciatica of right sidePlanThe patient was DISCHARGED: Counseled patient regarding suspecteddiagnosis AND need for follow-up. Discharged home with verbal and writteninstructions. They were instructed to return as needed for persistent orworsening symptoms or any new concerns.Condition at time of disposition: stableSIGNATURE: Fran Cuadra MD02/05/[address] [facility] BASIC METABOLIC PANELon 04-02 Anion gap 13 mmol/L Normal 10 - 20 [facility] Comment on above: Performed By: #### B MP ####[facility] [place] [address] Bicarbonate (HCO3) 26 mmol/L Normal 21 - 32 [facility] Comment on above: Performed By: #### B MP ####[facility] [place] [address] Calcium 9.1 mg/dL Normal 8.6 - 10.6 [facility] Comment on above: Performed By: #### B MP ####[facility] [place] [address] Chloride 102 mmol/L Normal 98 - 107 [facility] Comment on above: Performed By: #### B MP ####[facility] [place] [address] Creatinine 0.95 mg/dL Normal 0.50 - 1.30 [facility] Comment on above: Performed By: #### B MP ####[facility] [place] [address] eGFR (non-black) mL/min/{1.73_m2} Normal >60 [facility] Comment on above: Performed By: #### B MP ####[facility] [place] [address] Result Comment: CALC ULATIONS OF ESTIMATED GFR ARE PERFORMED USING THE MDRD STUDY EQUATION FOR THE IDMS-TRACEABLE CREATININE METHODS. CLIN CHEM 2007;53:766-72 Glucose mass conc 125 mg/dL High 74 - 99 [facility] Comment on above: Performed By: #### B MP ####[facility] [place] [address] Potassium molar conc 4.8 mmol/L Normal 3.5 - 5.3 [facility] Comment on above: Performed By: #### B MP ####[facility] [place] [address] Sodium 136 mmol/L Normal 136 - 145 [facility] Comment on above: Performed By: #### B MP ####[facility] [place] [address] Urea nitrogen 14 mg/dL Normal 6 - 23 [facility] Comment on above: Performed By: #### B MP ####[facility] [place] [address] CBCon 04-20-2017 Erythrocyte distribution width Auto Ratio (RBC) 13.7 % Normal 11.5 - 14.5 [facility] Comment on above: Performed By: #### C BC ####[facility] [place] [address] Erythrocytes (RBC) 4.41 x10E12/L Low 4.50 - 5.90 [facility] Comment on above: Performed By: #### C BC ####[facility] [place] [address] Hematocrit (HCT) 37.3 % Low 41.0 - 52.0 [facility] Comment on above: Performed By: #### C BC ####[facility] [place] [address] Hemoglobin mass conc (Bld) 12.3 g/dL Low 13.5 - 17.5 [facility] Comment on above: Performed By: #### C BC ####[facility] [place] [address] MCHC mass conc (RBC) 33.0 g/dL Normal 32.0 - 36.0 [facility] Comment on above: Performed By: #### C BC ####[facility] [place] [address] MCV 85 fL Normal 80 - 100 [facility] Comment on above: Performed By: #### C BC ####[facility] [place] [address] Nucleated erythrocytes 0.0 /100 WBC Normal 0.0-0.0 [facility] Comment on above: Performed By: #### C BC ####[facility] [place] [address] Platelets 292 10*3/uL Normal 150 - 450 [facility] Comment on above: Performed By: #### C BC ####[facility] [place] [address] WBC (Leukocytes) 6.9 10*3/uL Normal 4.4 - 11.3 [facility] Comment on above: Performed By: #### C BC ####[facility] [place] [address] BASIC METABOLIC PANELon 08- Anion gap 14 mmol/L Normal 10 - 20 [facility] Comment on above: Performed By: #### B MP ####[facility] [place] [address] Bicarbonate (HCO3) 27 mmol/L Normal 21 - 32 [facility] Comment on above: Performed By: #### B MP ####[facility] [place] [address] Calcium 9.0 mg/dL Normal 8.6 - 10.6 [facility] Comment on above: Performed By: #### B MP ####[facility] [place] [address] Chloride 102 mmol/L Normal 98 - 107 [facility] Comment on above: Performed By: #### B MP ####[facility] [place] [address] Creatinine 0.96 mg/dL Normal 0.50 - 1.30 [facility] Comment on above: Performed By: #### B MP ####[facility] [place] [address] eGFR (non-black) mL/min/{1.73_m2} Normal >60 [facility] Comment on above: Performed By: #### B MP ####[facility] [place] [address] Result Comment: CALC ULATIONS OF ESTIMATED GFR ARE PERFORMED USING THE MDRD STUDY EQUATION FOR THE IDMS-TRACEABLE CREATININE METHODS. CLIN CHEM 2007;53:766-72 Glucose mass conc 80 mg/dL Normal 74 - 99 [facility] Comment on above: Performed By: #### B MP ####[facility] [place] [address] Potassium molar conc 4.1 mmol/L Normal 3.5 - 5.3 [facility] Comment on above: Performed By: #### B MP ####[facility] [place] [address] Sodium 139 mmol/L Normal 136 - 145 [facility] Comment on above: Performed By: #### B MP ####[facility] [place] [address] Urea nitrogen 16 mg/dL Normal 6 - 23 [facility] Comment on above: Performed By: #### B MP ####[facility] [place] [address] CBCon 04-19-2017 Erythrocyte distribution width Auto Ratio (RBC) 14.0 % Normal 11.5 - 14.5 [facility] Comment on above: Performed By: #### C BC ####[facility] [place] [address] Erythrocytes (RBC) 4.33 x10E12/L Low 4.50 - 5.90 [facility] Comment on above: Performed By: #### C BC ####[facility] [place] [address] Hematocrit (HCT) 36.7 % Low 41.0 - 52.0 [facility] Comment on above: Performed By: #### C BC ####[facility] [place] [address] Hemoglobin mass conc (Bld) 11.9 g/dL Low 13.5 - 17.5 [facility] Comment on above: Performed By: #### C BC ####[facility] [place] [address] MCHC mass conc (RBC) 32.4 g/dL Normal 32.0 - 36.0 [facility] Comment on above: Performed By: #### C BC ####[facility] [place] [address] MCV 85 fL Normal 80 - 100 [facility] Comment on above: Performed By: #### C BC ####[facility] [place] [address] Nucleated erythrocytes 0.0 /100 WBC Normal 0.0-0.0 [facility] Comment on above: Performed By: #### C BC ####[facility] [place] [address] Platelets 247 10*3/uL Normal 150 - 450 [facility] Comment on above: Performed By: #### C BC ####[facility] [place] [address] WBC (Leukocytes) 8.2 10*3/uL Normal 4.4 - 11.3 [facility] Comment on above: Performed By: #### C BC ####[facility] [place] [address] BASIC METABOLIC PANELon - Anion gap 12 mmol/L Normal 10 - 20 [facility] Comment on above: Performed By: #### B MP ####[facility] [place] [address] Bicarbonate (HCO3) 28 mmol/L Normal 21 - 32 [facility] Comment on above: Performed By: #### B MP ####[facility] [place] [address] Calcium 9.3 mg/dL Normal 8.6 - 10.6 [facility] Comment on above: Performed By: #### B MP ####[facility] [place] [address] Chloride 102 mmol/L Normal 98 - 107 [facility] Comment on above: Performed By: #### B MP ####[facility] [place] [address] Creatinine 0.91 mg/dL Normal 0.50 - 1.30 [facility] Comment on above: Performed By: #### B MP ####[facility] [place] [address] eGFR (non-black) mL/min/{1.73_m2} Normal >60 [facility] Comment on above: Result Comment: CALC ULATIONS OF ESTIMATED GFR ARE PERFORMED USING THE MDRD STUDY EQUATION FOR THE IDMS-TRACEABLE CREATININE METHODS. CLIN CHEM 2007;53:766-72 Performed By: #### B MP ####[facility] [place] [address] Glucose mass conc 95 mg/dL Normal 74 - 99 [facility] Comment on above: Performed By: #### B MP ####[facility] [place] [address] Potassium molar conc 4.3 mmol/L Normal 3.5 - 5.3 [facility] Comment on above: Performed By: #### B MP ####[facility] [place] [address] Sodium 138 mmol/L Normal 136 - 145 [facility] Comment on above: Performed By: #### B MP ####[facility] [place] [address] Urea nitrogen 21 mg/dL Normal 6 - 23 [facility] Comment on above: Performed By: #### B MP ####[facility] [place] [address] CBCon 04-18-2017 Erythrocyte distribution width Auto Ratio (RBC) 13.9 % Normal 11.5 - 14.5 [facility] Comment on above: Performed By: #### C BC ####[facility] [place] [address] Erythrocytes (RBC) 4.41 x10E12/L Low 4.50 - 5.90 [facility] Comment on above: Performed By: #### C BC ####[facility] [place] [address] Hematocrit (HCT) 38.3 % Low 41.0 - 52.0 [facility] Comment on above: Performed By: #### C BC ####[facility] [place] [address] Hemoglobin mass conc (Bld) 12.6 g/dL Low 13.5 - 17.5 [facility] Comment on above: Performed By: #### C BC ####[facility] [place] [address] MCHC mass conc (RBC) 32.9 g/dL Normal 32.0 - 36.0 [facility] Comment on above: Performed By: #### C BC ####[facility] [place] [address] MCV 87 fL Normal 80 - 100 [facility] Comment on above: Performed By: #### C BC ####[facility] [place] [address] Nucleated erythrocytes 0.0 /100 WBC Normal 0.0-0.0 [facility] Comment on above: Performed By: #### C BC ####[facility] [place] [address] Platelets 242 10*3/uL Normal 150 - 450 [facility] Comment on above: Performed By: #### C BC ####[facility] [place] [address] WBC (Leukocytes) 11.7 10*3/uL High 4.4 - 11.3 [facility] Comment on above: Performed By: #### C BC ####[facility] [place] [address] BASIC METABOLIC PANELon 08- Anion gap 14 mmol/L Normal 10 - 20 [facility] Comment on above: Performed By: #### B MP ####[facility] [place] [address] Bicarbonate (HCO3) 25 mmol/L Normal 21 - 32 [facility] Comment on above: Performed By: #### B MP ####[facility] [place] [address] Calcium 9.0 mg/dL Normal 8.6 - 10.6 [facility] Comment on above: Performed By: #### B MP ####[facility] [place] [address] Chloride 104 mmol/L Normal 98 - 107 [facility] Comment on above: Performed By: #### B MP ####[facility] [place] [address] Creatinine 0.80 mg/dL Normal 0.50 - 1.30 [facility] Comment on above: Performed By: #### B MP ####[facility] [place] [address] eGFR (non-black) mL/min/{1.73_m2} Normal >60 [facility] Comment on above: Result Comment: CALC ULATIONS OF ESTIMATED GFR ARE PERFORMED USING THE MDRD STUDY EQUATION FOR THE IDMS-TRACEABLE CREATININE METHODS. CLIN CHEM 2007;53:766-72 Performed By: #### B MP ####[facility] [place] [address] Glucose mass conc 131 mg/dL High 74 - 99 [facility] Comment on above: Performed By: #### B MP ####[facility] [place] [address] Potassium molar conc 4.5 mmol/L Normal 3.5 - 5.3 [facility] Comment on above: Performed By: #### B MP ####[facility] [place] [address] Sodium 138 mmol/L Normal 136 - 145 [facility] Comment on above: Performed By: #### B MP ####[facility] [place] [address] Urea nitrogen 20 mg/dL Normal 6 - 23 [facility] Comment on above: Performed By: #### B MP ####[facility] [place] [address] CBCon 04-17-2017 Erythrocyte distribution width Auto Ratio (RBC) 13.8 % Normal 11.5 - 14.5 [facility] Comment on above: Performed By: #### C BC ####[facility] [place] [address] Erythrocytes (RBC) 4.13 x10E12/L Low 4.50 - 5.90 [facility] Comment on above: Performed By: #### C BC ####[facility] [place] [address] Hematocrit (HCT) 35.3 % Low 41.0 - 52.0 [facility] Comment on above: Performed By: #### C BC ####[facility] [place] [address] Hemoglobin mass conc (Bld) 11.8 g/dL Low 13.5 - 17.5 [facility] Comment on above: Performed By: #### C BC ####[facility] [place] [address] MCHC mass conc (RBC) 33.4 g/dL Normal 32.0 - 36.0 [facility] Comment on above: Performed By: #### C BC ####[facility] [place] [address] MCV 85 fL Normal 80 - 100 [facility] Comment on above: Performed By: #### C BC ####[facility] [place] [address] Nucleated erythrocytes 0.0 /100 WBC Normal 0.0-0.0 [facility] Comment on above: Performed By: #### C BC ####[facility] [place] [address] Platelets 208 10*3/uL Normal 150 - 450 [facility] Comment on above: Performed By: #### C BC ####[facility] [place] [address] WBC (Leukocytes) 17.2 10*3/uL High 4.4 - 11.3 [facility] Comment on above: Performed By: #### C BC ####[facility] [place] [address] Discharge Summaryon 04-17-20 Discharge Summary Send Summary:Dischar ge Summary Providers:Provider Role Provider Name? Referring Toni Ferreira? Primary Bobby Cain? Attending Toni Ferreira Recipients: Bobby Cain MD - [id number] []Toni Ferreira MDDischarge:Summary:Admis jen Date: .15-Apr-2017 16:45:00Discharge Date: [id number] Physician at Discharge: Toni Ferreiradmission Reason: Facial AbscessFinal Discharge Diagnoses: Left sided director of infection prevention space abscessProcedures: Intraoral and extraoral incision and drainage with placement ofpenrose drainsCondition at Discharge: SatisfactoryDisposition at Discharge: .HomeVital Signs: T P R BP WiV5Kchod 36 73 18 128/78 97%Date/Time 04/17 15:15 04/17 15:15 04/17 15:15 04/17 15:15 04/1615:15Range (36C - 36.7C ) (73 - 89 ) (18 - 18 ) (110 - 128 )/ (72- 86 ) (93% -98% )Hospital Course:42 year old male presents with 4 day Hx. of left mandibular pain and one dayhx. of facial swelling. pt. presented to outside ED and was given abx anddischarged Pt. seen in OMFS clinic and sent for facial bone CT , OMFS consultedfor facial infection evaluation. Patient was taken to the OR for incision anddrainage. Infection accessed both intraorally and extraorally with penrosedrains placed. Pt tolerated fluids PO, pain well managed. Ambulatory. Meetscriteria for discharge.Discharge Information:and Continuing Care:Discharge Instructions:Activity: activity as tolerated. May shower.. May return to school/work. May drive.. No pushing, pulling, or lifting objects greater than 10 pounds.Nutrition/Diet: full liquidsFollow Up Appointments:Follow up in OM clinic SaturdayApril 22.Call Nicolasa at to schedule. Clinic located at [address] [place] [phone] inside the [facility] [employer] building.Discharge Medications: Home Medication IBU 600 mg oral tablet - 1 tab(s) orally every 6 hours as needed for pain MiraLax oral powder for reconstitution - 17 gram(s) dissolved in waterorally2 times a day for 7 days chlorhexidine 0.12% mucous membrane liquid - Swish and Spit15 milliliter(s)or1 tablespoon 2 times a day for 2 weeks diclofenac 0.1% ophthalmic solution - 1 drop(s) in the right eye every 6hours ciprofloxacin 0.3% ophthalmic solution - 1 drop(s) in the right eye every 6hours acetaminophen 325 mg oral tablet - 2 tab(s) orally every 6 hours. cyclobenzaprine 10 mg oral tablet - 1 tab(s) orally 3 times a day Colace 100 mg oral capsule - 1 cap(s) orally once a day amoxicillin-clavulanate 250 mg-125 mg oral tablet - 1 tab(s) orally 2 timesaday PRN MedicationLab Results - Pending: NoneRadiology Results - Pending: NoneAttestation:Provider / Team Contact Info:Provider/Team Contact Info-Pager Number: [phone]/Attestation:. : Attestation: I reviewed the resident/fellow?s documentation and discussed thepatient with the resident/fellow. I agree with the resident/fellow?s medicaldecision making as documented in the resident?s note.: Electronic Signatures:Josue Costello (KELBY) (Signed 17-Apr-2017 20:30) Authored: Send Summary, Summary Content, Ongoing Care, AttestationToni Ferreira) (Signed 13-May-2017 11:01) Authored: Summary Content, Ongoing Care, Attestation Co-Signer: Summary Content, Ongoing Care, AttestationLast Updated: 13-May-2017 11:01 by Toni Ferreira) Normal [facility] BASIC METABOLIC PANELon 04-02 Anion gap Canceled Normal [facility] Comment on above: Order Comment: TEST BASIC METABOLIC PANEL WAS CANCELLED, 04/16/2017 08:00 PATIENT IN OR. RNWILL REORDER IF LABS NEEDED.. Performed By: #### B MP ####[facility] [place] [address] Bicarbonate (HCO3) Canceled Normal [facility] Comment on above: Order Comment: TEST BASIC METABOLIC PANEL WAS CANCELLED, 04/16/2017 08:00 PATIENT IN OR. RNWILL REORDER IF LABS NEEDED.. Performed By: #### B MP ####[facility] [place] [address] Calcium Canceled Normal [facility] Comment on above: Order Comment: TEST BASIC METABOLIC PANEL WAS CANCELLED, 04/16/2017 08:00 PATIENT IN OR. RNWILL REORDER IF LABS NEEDED.. Performed By: #### B MP ####[facility] [place] [address] Chloride Canceled Normal [facility] Comment on above: Order Comment: TEST BASIC METABOLIC PANEL WAS CANCELLED, 04/16/2017 08:00 PATIENT IN OR. RNWILL REORDER IF LABS NEEDED.. Performed By: #### B MP ####[facility] [place] [address] Creatinine Canceled Normal [facility] Comment on above: Order Comment: TEST BASIC METABOLIC PANEL WAS CANCELLED, 04/16/2017 08:00 PATIENT IN OR. RNWILL REORDER IF LABS NEEDED.. Performed By: #### B MP ####[facility] [place] [address] eGFR (non-black) Canceled Normal [facility] Comment on above: Order Comment: TEST BASIC METABOLIC PANEL WAS CANCELLED, 04/16/2017 08:00 PATIENT IN OR. RNWILL REORDER IF LABS NEEDED.. Performed By: #### B MP ####[facility] [place] [address] Result Comment: CALC ULATIONS OF ESTIMATED GFR ARE PERFORMED USING THE MDRD STUDY EQUATION FOR THE IDMS-TRACEABLE CREATININE METHODS. CLIN CHEM 2007;53:766-72 Glucose mass conc Canceled Normal [facility] Comment on above: Order Comment: TEST BASIC METABOLIC PANEL WAS CANCELLED, 04/16/2017 08:00 PATIENT IN OR. RNWILL REORDER IF LABS NEEDED.. Performed By: #### B MP ####[facility] [place] [address] Potassium molar conc Canceled Normal [facility] Comment on above: Order Comment: TEST BASIC METABOLIC PANEL WAS CANCELLED, 04/16/2017 08:00 PATIENT IN OR. RNWILL REORDER IF LABS NEEDED.. Performed By: #### B MP ####[facility] [place] [address] Sodium Canceled Normal [facility] Comment on above: Order Comment: TEST BASIC METABOLIC PANEL WAS CANCELLED, 04/16/2017 08:00 PATIENT IN OR. RNWILL REORDER IF LABS NEEDED.. Performed By: #### B MP ####[facility] [place] [address] Urea nitrogen Canceled Normal [facility] Comment on above: Order Comment: TEST BASIC METABOLIC PANEL WAS CANCELLED, 04/16/2017 08:00 PATIENT IN OR. RNWILL REORDER IF LABS NEEDED.. Performed By: #### B MP ####[facility] [place] [address] CBCon 04-16-2017 Erythrocyte distribution width Auto Ratio (RBC) Canceled Normal [facility] Comment on above: Order Comment: TEST CBC WAS CANCELLED, 04/16/2017 08:00 PATIENT IN OR. RN WILL REORDER IFLABS NEEDED.. Performed By: #### C BC ####[facility] [place] [address] Erythrocytes (RBC) Canceled Normal [facility] Comment on above: Order Comment: TEST CBC WAS CANCELLED, 04/16/2017 08:00 PATIENT IN OR. RN WILL REORDER IFLABS NEEDED.. Performed By: #### C BC ####[facility] [place] [address] Hematocrit (HCT) Canceled Normal [facility] Comment on above: Order Comment: TEST CBC WAS CANCELLED, 04/16/2017 08:00 PATIENT IN OR. RN WILL REORDER IFLABS NEEDED.. Performed By: #### C BC ####[facility] [place] [address] Hemoglobin mass conc (Bld) Canceled Normal [facility] Comment on above: Order Comment: TEST CBC WAS CANCELLED, 04/16/2017 08:00 PATIENT IN OR. RN WILL REORDER IFLABS NEEDED.. Performed By: #### C BC ####[facility] [place] [address] MCHC mass conc (RBC) Canceled Normal [facility] Comment on above: Order Comment: TEST CBC WAS CANCELLED, 04/16/2017 08:00 PATIENT IN OR. RN WILL REORDER IFLABS NEEDED.. Performed By: #### C BC ####[facility] [place] [address] MCV Canceled Normal [facility] Comment on above: Order Comment: TEST CBC WAS CANCELLED, 04/16/2017 08:00 PATIENT IN OR. RN WILL REORDER IFLABS NEEDED.. Performed By: #### C BC ####[facility] [place] [address] Nucleated erythrocytes Canceled Normal [facility] Comment on above: Order Comment: TEST CBC WAS CANCELLED, 04/16/2017 08:00 PATIENT IN OR. RN WILL REORDER IFLABS NEEDED.. Performed By: #### C BC ####[facility] [place] [address] Platelets Canceled Normal [facility] Comment on above: Order Comment: TEST CBC WAS CANCELLED, 04/16/2017 08:00 PATIENT IN OR. RN WILL REORDER IFLABS NEEDED.. Performed By: #### C BC ####[facility] [place] [address] WBC (Leukocytes) Canceled Normal [facility] Comment on above: Order Comment: TEST CBC WAS CANCELLED, 04/16/2017 08:00 PATIENT IN OR. RN WILL REORDER IFLABS NEEDED.. Performed By: #### C BC ####[facility] [place] [address] FUNGAL CULTURE/, [facility] FUNGAL CULTURE/, [facility] [place] PATIENT: ANGELO ALEMAN LOCATION: [address]#: [id number] : 71 AGE: SEX: M ORDERED BY: JALYN FERREIRAURCE: WOUND/ABSCESS COLLECTED: 04/16/17 06:50ANTIBIOTICS AT JUAN MANUEL.: RECEIVED : 04/16/17 14:31SITE: L EXTRA-ORAL R E S U L T S FUNGAL SMEAR FINAL 04/17/17 10:30 FLUORESCENT FUNGAL STAIN: NEGATIVE FUNGAL CULTURE/SM, MISC FINAL 05/06/17 15:48 NO FUNGI ISOLATED. Normal [facility] MISCELLANEOUS CULT./SM.BACT. on 04-16-2017 MISCELLANEOUS CULT./SM.BACT. PATIENT: ANGELO ALEMAN LOCATION: [facility] K46MMOC#: [id number] : 71 AGE: SEX: M ORDERED BY: MADELYN FERREIRA: WOUND/ABSCESS COLLECTED: 04/16/17 06:50ANTIBIOTICS AT JUAN MANUEL.: RECEIVED : 04/16/17 14:30SITE: L EXTRA-ORAL R E S U L T S GRAM STAIN FINAL 04/16/17 23:21 NO GRANULOCYTES OR ORGANISMS SEEN. MISCELLANEOUS CULT./SM.BACT. FINAL 04/18/17 13:12 3+ MIXED BACTERIA RESEMBLING NORMAL MOUTH SPRING Normal [facility] BASIC METABOLIC PANELon 04-02 Anion gap 17 mmol/L Normal 10 - 20 [facility] Comment on above: Performed By: #### B MP ####[facility] [place] [address] Bicarbonate (HCO3) 26 mmol/L Normal 21 - 32 [facility] Comment on above: Performed By: #### B MP ####[facility] [place] [address] Calcium 10.1 mg/dL Normal 8.6 - 10.6 [facility] Comment on above: Performed By: #### B MP ####[facility] [place] [address] Chloride 101 mmol/L Normal 98 - 107 [facility] Comment on above: Performed By: #### B MP ####[facility] [place] [address] Creatinine 0.99 mg/dL Normal 0.50 - 1.30 [facility] Comment on above: Performed By: #### B MP ####[facility] [place] [address] eGFR (non-black) mL/min/{1.73_m2} Normal >60 [facility] Comment on above: Result Comment: CALC ULATIONS OF ESTIMATED GFR ARE PERFORMED USING THE MDRD STUDY EQUATION FOR THE IDMS-TRACEABLE CREATININE METHODS. CLIN CHEM 2007;53:766-72 Performed By: #### B MP ####[facility] [place] [address] Glucose mass conc 127 mg/dL High 74 - 99 [facility] Comment on above: Performed By: #### B MP ####[facility] [place] [address] Potassium molar conc 5.7 mmol/L High 3.5 - 5.3 [facility] Comment on above: Performed By: #### B MP ####[facility] [place] [address] Sodium 138 mmol/L Normal 136 - 145 [facility] Comment on above: Performed By: #### B MP ####[facility] [place] [address] Urea nitrogen 21 mg/dL Normal 6 - 23 [facility] Comment on above: Performed By: #### B MP ####[facility] [place] [address] CBCon 04-15-2017 Erythrocyte distribution width Auto Ratio (RBC) 13.6 % Normal 11.5 - 14.5 [facility] Comment on above: Performed By: #### C BC ####[facility] [id number] [facility] [place] [address] Erythrocytes (RBC) 4.96 x10E12/L Normal 4.50 - 5.90 [facility] Comment on above: Performed By: #### C BC ####[facility] [id number] [place] [address] Hematocrit (HCT) 42.7 % Normal 41.0 - 52.0 [facility] Comment on above: Performed By: #### C BC ####[facility] [id number] [place] [address] Hemoglobin mass conc (Bld) 14.5 g/dL Normal 13.5 - 17.5 [facility] Comment on above: Performed By: #### C BC ####[facility] [id number] [place] [address] MCHC mass conc (RBC) 34.0 g/dL Normal 32.0 - 36.0 [facility] Comment on above: Performed By: #### C BC ####[facility] [id number] [place] [address] MCV 86 fL Normal 80 - 100 [facility] Comment on above: Performed By: #### C BC ####[facility] [id number] [place] [address] Nucleated erythrocytes 0.1 /100 WBC Abnormal 0.0-0.0 [facility] Comment on above: Performed By: #### C BC ####[facility] [id number] [place] [address] Platelets 231 10*3/uL Normal 150 - 450 [facility] Comment on above: Performed By: #### C BC ####[facility] [id number] [place] [address] WBC (Leukocytes) 24.9 10*3/uL High 4.4 - 11.3 [facility] Comment on above: Performed By: #### C BC ####[facility] [id number] [place] [address] FACIAL BONE W/CONTRAST on 04-15-[address] FACIAL BONE W/CONTRAST Name: ANGELO ALEMAN STUDY:NR CT FACIAL BONE W/CONTRAST; NR CT NECK WITH CONTRAST; 04/15/20173:35 pm INDICATION:cellulitis and abscess of mouth. COMPARISON:None. [id number] ORDERING CLINICIAN:ADA DUVALL TECHNIQUE:Axial postcontrast images of the face and neck were obtained.Sagittal and coronal reconstructions were performed. 90 mL [id number]. FINDINGS:There is marked edema in the left lateral facial soft tissues,including the left director of infection prevention space, left submandibular andsublingual spaces, left aspect of the oropharynx, left posterioraspect of the oral cavity, and hypopharynx. Within the edematous softtissues, there is a large, multiloculated, peripherally enhancingfocus of relatively intermediate to low attenuation, stronglysuggestive of multiloculated abscess. The fluid comprising theabscess surrounds the ramus and angle of the mandible on the left,displacing the left masseter muscle laterally. There is an air-fluidlevel within this fluid collection. There is no definite associatederosion or demineralization of the mandible at these levels. However,osteomyelitis is sometimes present even in the absence of bonedestruction. In addition, the fluid collection extends anteriorly andsuperiorly into the left infratemporal fossa, where there is a focal,rounded fluid collection. The left submandibular gland is markedlyenlarged and contains numerous peripherally enhancing fluidcollections, suggestive of abscess involvement. In addition, there isedema on extending caudally along the left pharyngeal mucosal spaceand oropharynx to the level of the left hypopharynx. The piriformsinus is effaced on the left and is displaced to the right. The leftvallecula is obscured. And there is some thickening of the leftaspect of the epiglottis. The airway remains patent, however. Thereis marked stranding in the fat of the involved spaces and thickeningof the platysma, more so on the left than on the right as well as themylohyoid muscle. Eloy's Angina is not excluded. The soft tissueedema and fat stranding extends caudally to soft tissues anterior tothe clavicles. The jugular veins are patent. Paranasal sinuses andmastoid air cells are clear. Left parotid gland is minimallyedematous in its inferior aspect but is only mildly enlarged. Thereis no abscess within the left parotid gland. There are reactive lymphnodes in the internal jugular chains bilaterally and in thesubmandibular regions bilaterally. There is no significantlymphadenopath y, however. No dental abscesses are appreciated. IMPRESSION:Severe soft tissue edema/cellulitis and peripherally enhancing fluidcollections consistent with abscess cavities involving multiplespaces in the neck, as detailed above. Eloy's angina is notexcluded. TheElectronically signed by: HUGH RUFF MD [facility] NR CT NECK WITH CONTRASTon 0 04-15-[address] NECK WITH CONTRAST Name: ANGELO ALEMAN STUDY:NR CT FACIAL BONE W/CONTRAST; NR CT NECK WITH CONTRAST; 04/15/20173:35 pm INDICATION:cellulitis and abscess of mouth. COMPARISON:None. [id number] ORDERING CLINICIAN:ADA DUVALL TECHNIQUE:Axial postcontrast images of the face and neck were obtained.Sagittal and coronal reconstructions were performed. 90 mL [id number]. FINDINGS:There is marked edema in the left lateral facial soft tissues,including the left director of infection prevention space, left submandibular andsublingual spaces, left aspect of the oropharynx, left posterioraspect of the oral cavity, and hypopharynx. Within the edematous softtissues, there is a large, multiloculated, peripherally enhancingfocus of relatively intermediate to low attenuation, stronglysuggestive of multiloculated abscess. The fluid comprising theabscess surrounds the ramus and angle of the mandible on the left,displacing the left masseter muscle laterally. There is an air-fluidlevel within this fluid collection. There is no definite associatederosion or demineralization of the mandible at these levels. However,osteomyelitis is sometimes present even in the absence of bonedestruction. In addition, the fluid collection extends anteriorly andsuperiorly into the left infratemporal fossa, where there is a focal,rounded fluid collection. The left submandibular gland is markedlyenlarged and contains numerous peripherally enhancing fluidcollections, suggestive of abscess involvement. In addition, there isedema on extending caudally along the left pharyngeal mucosal spaceand oropharynx to the level of the left hypopharynx. The piriformsinus is effaced on the left and is displaced to the right. The leftvallecula is obscured. And there is some thickening of the leftaspect of the epiglottis. The airway remains patent, however. Thereis marked stranding in the fat of the involved spaces and thickeningof the platysma, more so on the left than on the right as well as themylohyoid muscle. Eloy's Angina is not excluded. The soft tissueedema and fat stranding extends caudally to soft tissues anterior tothe clavicles. The jugular veins are patent. Paranasal sinuses andmastoid air cells are clear. Left parotid gland is minimallyedematous in its inferior aspect but is only mildly enlarged. Thereis no abscess within the left parotid gland. There are reactive lymphnodes in the internal jugular chains bilaterally and in thesubmandibular regions bilaterally. There is no significantlymphadenopath y, however. No dental abscesses are appreciated. IMPRESSION:Severe soft tissue edema/cellulitis and peripherally enhancing fluidcollections consistent with abscess cavities involving multiplespaces in the neck, as detailed above. Eloy's angina is notexcluded. TheElectronically signed by: HUGH RUFF MD [facility] BN ORTHOPANTOGRAMon 03-15-20 BN ORTHOPANTOGRAM Name: ANGELO ALEMAN STUDY:BN ORTHOPANTOGRAM; 03/14/2017 10:34 pm INDICATION:Signs/Symptoms : Post b/l coronoidectomy. ORDERING CLINICIAN:GAUDENCIO ISRAEL FINDINGS:Postsurgical changes related to resection of the coronoid processbilaterally. There is no evidence of a periapical abscess. Nofracture in the mandible. IMPRESSION:No periapical abscessElectronically signed by: KAYLI SHARP MD [facility] Discharge Summaryon 03-15-20 Discharge Summary Send Summary:Dischar ge Summary Providers:Provider Role Provider Name? Referring Referred, Self? Primary Bobby Cain? Attending Ada Duvall Recipients: Ada Duvall S Bobby Cain MD - [id number] []Referred, Self, MDDischarge:Summary:Admis jen Date: .14-Mar-2017 05:21:00Discharge Date: [id number] Physician at Discharge: Ada Duvalldmission Reason: Post op pain controlFinal Discharge Diagnoses: Bilateral coronoid hyperplasia of mandibleProcedures: Date: 14-Mar-2017 11:18:00Procedure Name: resection of bilateral mandibular coronoid processes,manipulation under anesthesiaCondition at Discharge: SatisfactoryDisposition at Discharge: .HomeVital Signs: T P R BP OcN6Iamqa 36.7 67 18 124/76 93%Date/Time 03/15 7:59 7 7:59 03/15 7:59 03/15 7:59 03/15 7:59Range (36C - 36.9C ) (62 - 67 ) (17 - 18 ) (122 - 141 )/ (63- 78 ) (92% -97% ) As of 14-Mar-2017 19:01:00, patient is on 2 L/min of oxygen via nasal cannula.Highest temp of 36.9 C was recorded at 03/15 0:28Physical Exam:Constitutional: Well developed, awake/alert/oriented x3, moderate distress,alert and cooperative, pleasantEyes: PERRL, EOMI, clear scleraENMT: Moderate perioral swelling. PRABHAKAR about 22. Intraoral incisions clean andintact with good approximations. CN V and VII intact bilaterally.Head/Neck: Neck supple, no apparent injury, thyroid without mass or tenderness,No JVD, trachea midline, no bruitsRespiratory/Thorax: Patent airways, CTAB, normal breath sounds with good chestexpansion, thorax symmetricSkin: Warm and dry, no lesions, no rashesHospital Course:Mr. Aleman is a 42 year old male [facility]eds[facility] to resect his bilateral hypertrophic coronoids. The incisions andresections were done intraorally. Procedure completed without complication.Patient transferred to PACU in appropriate condition. In PACU anesthesia wasconsulted because patient was complaining of right eye pain, which they thenadequately treated. Patient was complaining of significant pain and wasadmitted to the inpatient service for pain control. Patient was started on INSURANCE ADJUSTOR.Overnight, patient felt nauseous and had a few episodes of emesis. Zofranprovided some relief but patient was also given IM promethazine the next day.Patient was given a straight catheter following the procedure because ofinability to micturate. The next day patient still could not void, and bladderscan showed 630cc. Patient given another straight catheter. Pain startedsubsiding POD #1, so INSURANCE ADJUSTOR discontinued and patient started on PRN dilaudid andoxycodone. Patient had first void at 14:00 on POD #1 and started feeling muchbetter in regards to pain. Patient has voided multiple times. Started on softdiet. Patient's oral cavity is hemostatic and pain is well controlled, stablefor discharge.Discharge Information:and Continuing Care:Discharge Instructions:Activity: activity as tolerated. May shower.. After 24 hours May return to school/work. May not drive while taking narcotics. No pushing, pulling, or lifting objects greater than 10 pounds untilfollow-up visit. Soft diet until followup visit. Do not drink through a straw.Use wooden sticks in mouth as instructed 2-3 times per day for a few minutes totry and expand the mouth opening.Nutrition/Diet: Diet Consistency/Texture: no chew softWound Care: Wound Site: Intraorally Wound Type: surgical incision Cleanse With: Peridex Other Instructions: Warm compresses to nondenominational areaFollow Up Appointments:Follow-Up Appointment 01: Physician/Dept/Service: [facility] Reason for Referral: Post op visit Call to Schedule in: 2-3 days Location: [address] [place] [address] Xmlbyqlwi Medications: Home Medication amoxicillin 500 mg oral capsule - 1 cap(s) orally 3 times a day IBU 600 mg oral tablet - 1 tab(s) orally every 6 hours as needed for pain MiraLax oral powder for reconstitution - 17 gram(s) dissolved in waterorally2 times a day for 7 days chlorhexidine 0.12% mucous membrane liquid - Swish and Spit15 milliliter(s)or1 tablespoon 2 times a day for 2 weeks diclofenac 0.1% ophthalmic solution - 1 drop(s) in the right eye every 6hours ciprofloxacin 0.3% ophthalmic solution - 1 drop(s) in the right eye every 6hours acetaminophen 325 mg oral tablet - 2 tab(s) orally every 6 hours. ondansetron 4 mg oral tablet - 1 tablet orally once a day as needed fornausea cyclobenzaprine 10 mg oral tablet - 1 tab(s) orally 3 times a day oxyCODONE 5 mg oral capsule - 1 to 2 cap(s) orally every 4 to 6 hours PRN MedicationIssues to Discuss at Follow-up / Goals for Continuing Care:Follow up with Oral Surgery Clinic in One Week.We discussed using the wooden sticks in your mouth 2-3 times per day for a fewminutes to try and expand the mouth.Warm compresses as needed.Lab Results - Pending: NoneRadiology Results - Pending: NoneAttestation:Cosign/At testation:.: Atte station: I reviewed the resident/fellow?s documentation and discussed thepatient with the resident/fellow. I agree with the resident/fellow?s medicaldecision making as documented in the resident?s note.: Electronic Signatures:Ada Duvall (DDS) (Signed 22-Mar-2017 15:40) Authored: Summary Content, Ongoing Care, Attestation Co-Signer: Summary Content, Ongoing CareShankar Rivas (Resident)) (Signed 15-Mar-2017 19:22) Authored: Send Summary, Summary Content, Ongoing Care, AttestationLast Updated: 22-Mar-2017 15:40 by Ada Duvall (DDS) [facility] GLUCOSE-POCTon 03-14-2017 Glucose mass conc 171 mg/dL High 74 - 99 [facility] Comment on above: Performed By: #### G NORBERTO ####[facility], [place] [phone] [facility] Surgical Pathology Depar tmenton 03-14-2017 [facility] Surgical Pathology Department Name ANGELO ALEMAN Pathologist: SHANKAR BENSON,MDDate of Procedure: 03/14/2017Date Received: 03/14/2017Date Reported 03/20/2017Submitting Physician: ADA DUVALL DDSLocation: [facility] Other External # FINAL DIAGNOSISA. BILATERAL MANDIBULAR CORONOID PROCESS HYPERTROPHY, EXCISIONS:-- FRAGMENTS OF BONE AND SOFT TISSUE WITH NO SIGNIFICANT PATHOLOGIC FINDINGS. Electronically Signed Out By SHANKAR BENSON MD/Reynold the signature on this report, the individual or group listed as making theFinal Interpretation/Diagnosis certifies that they have reviewed this case. Clinical History:Limited mandibular range of motion, coronoid hyperplasiaSpecimens Submitted As:A: BILATERAL MANDIBULAR CORONOID PROCESS HYPERTROPHY Gross Description:A. Received in formalin, labeled with the patient's name and hospital numberand bilateral mandibular coronoid are two pieces of bone with a smallattached soft tissue and tendon aggregating to 4.5 x 4.0 x 2.0 cm. No grossabnormality identified. Photograph has been taken. The specimen is seriallysectioned and community health representative are submitted in three cassettes followingdecalcification. MXBmxb/03/15/2017 [facility] Comment on above: Performed By: #### [facility] ####[facility] Surgical Pathology [address]Clevel[facility] [place] [address] Vital Signs Date Time Vital Sign Value Performing Clinician Facility 02-19-2023 12:59-0400 Body height 195.6 cm [employer] Work Phone: [facility] 02-19-2023 12:59-0400 Body temperature 97.39 [degF] Hali Lomita PA-C Work Phone: [facility] 02-19-2023 12:59-0400 Body weight 125.92 kg Hali Lomita PA-C Work Phone: [facility] 02-19-2023 12:59-0400 Diastolic blood pressure 82 mm[Hg] Hali Shane PA-C Work Phone: [facility] 02-19-2023 12:59-0400 Heart rate 84 /min Hali Lomita PA-C Work Phone: [facility] 02-19-2023 12:59-0400 SaO2% (BldA) [Mass fraction] 98 % [employer] Work Phone: [facility] 02-19-2023 12:59-0400 Systolic blood pressure 118 mm[Hg] Hali Cifuentes PA-C Work Phone: [facility] NEGATED: Highlighted [id number] 13:38-0400 Body height 195.58 cm Annamaria Adair AT [facility] Work Phone: NEGATED: Highlighted [id number] 13:38-0400 Body height 196 cm Annamaria Adair AT [facility] Work Phone: NEGATED: Highlighted [id number] 13:38-0400 Body mass index (BMI) [Ratio] 31.42 kg/m2 Annamaria Adair AT [facility] Work Phone: NEGATED: Highlighted [id number] 13:38-0400 Body weight 119.75 kg Annamaria Adair AT [facility] Work Phone: NEGATED: Highlighted [id number] 13:38-0400 Body weight 120 kg Annamaria Adair AT [facility] Work Phone: Encounters Encounter Date Encounter Type Care Provider Facility Start: 03-03-2024 Encounter for genera l adult medical examination without abnormal findings [facility] Start: 02-21-2024 End: 02-21-2024 ambulatory [facility] Facility:[facility] Start: 12-26-2023 End: 12-26-2023 ambulatory [facility] Work Phone: Start: 12-26-2023 End: 12-26-2023 Discharged Recurring [facility] Work Phone: Start: 08-23-2023 Telephone encounter Rod manzano MD Work Phone: [facility] Comment on above: Surgery Scheduling ( 09/13/23) Start: 07-23-2023 End: 07-23-2023 ambulatory BOBBY Floyd [facility] Work Phone: Start: 07-23-2023 End: 07-23-[address] [facility] Start: 04-08-2023 End: 04-08-2023 ambulatory [facility] Work Phone: Start: 04-08-2023 End: 04-08-2023 Patient encounter procedure [facility] Work Phone: Start: 04-08-2023 End: 04-08-2023 ambulatory Marianna Doll Facility:[facility] Start: 03-01-2023 End: 03-01-2023 ambulatory Hali PA-C Work Phone: General Surgery Comment on above: Tubular adenoma (Teodora jenny Dx) Start: 03-01-2023 End: 03-01-2023 Telemedicine consultation with patient Hali Cifuentes PA-C Work Phone: [facility] Start: 02-22-2023 End: 02-22-2023 ambulatory HALIZACHARY CIFUENTES Facility:[facility] Start: 02-21-2023 End: 02-21-2023 ambulatory [facility] Work Phone: Start: 02-21-2023 End: 02-21-2023 Patient encounter procedure [facility] Start: 02-19-2023 End: 02-20-2023 ambulatory HALIZACHARY CIFUENTES Facility:[facility] Start: 02-19-2023 End: 02-19-2023 Patient encounter procedure Hali Cifuentes PA-C Work Phone: General Surgery Comment on above: Encounter for screen ing for malignant neoplasm of colon (Primary Dx) Start: 02-05-2023 End: 02-05-2023 Patient encounter procedure [facility] Start: 01-26-2022 End: 01-26-2022 Patient encounter procedure [facility] Start: 01-11-2022 End: 01-11-2022 Discharged Recurring [facility] Start: 12-18-2021 End: 12-18-2021 Pt evaluation Joel Khan MD Work Phone: [facility] [place] [facility] Work Phone: Start: 02-07-2018 End: 02-07-2018 Emergency department patient visit MAYI HOUSER [facility] Start: 02-06-2018 End: 02-06-2018 Emergency department patient visit ORTEGA DE SANTIAGO [facility] Start: 04-15-2017 End: 04-20-2017 Evaluation and management of inpatient Toni Ferreira Facility:[facility] Start: 04-15-2017 Ambulatory Ada Duvall Facility :[facility] Start: 03-14-2017 End: 03-15-2017 Ambulatory Ada Duavll Facility:[facility] Procedures Date Procedure Procedure Detail Performing Clinician Start: 02-22-2023 Colonoscopy Hali springer PA-C Work Phone: Start: 12-18-2021 End: 12-18-2021 BP scrn no perf at interval Joel Khan MD Work Phone: Start: 12-18-2021 End: 12-18-2021 Calc BMI abv up jeff f/u Joel Khan MD Work Phone: Start: 12-18-2021 End: 12-18-2021 Current tobacco non-user cad cap copd pv dm Joel Khan MD Work Phone: Start: 12-18-2021 End: 12-18-2021 DJO ARCH RIVAL (DJO) Joel Khan MD Work Phone: Start: 12-18-2021 End: 12-18-2021 Docrev cur meds by jerardo Khan MD Work Phone: Start: 12-18-2021 End: 12-18-2021 Pain doc pos and plan Joel Khan MD Work Phone: Start: 12-18-2021 End: 12-18-2021 Patient encounter procedure Joel Khan MD Work Phone: Start: 04-19-2017 Extraction of Lower Tooth, Single, External Approach Ada Duvall Start: 04-16-2017 Drainage of Left Submaxillary Gland with Drainage Device, Percutaneous Approach Ada Chapmanur Start: 04-16-2017 Drainage of Neck wit h Drainage Device, Percutaneous Approach Ada Duvall Start: 03-14-2017 Anesthesia facial li lauryn or skull nos Ada Duvall Start: 03-14-2017 Coronoidectomy separ ate procedure Ada Chapmnaur NEGATED: Highlighted rowStart: 12-18-2021 End: 12-18-2021 Documentation of current medications Annamaria Smith AT Plan of Treatment Date Care Activity Detail Author Start: 2033 RSV Immunization aged 60 or older (1 - 1-dose 60+ series) RSV Immunization aged 60 or older (1 - 1-dose 60+ series) [facility] Start: 02-23-2028 Colonoscopy COLONOSCOPY [facility] Start: 02-23-2028 COLORECTAL CANCER SCREENING COLORECTAL CANCER SCREENING [facility] Start: 05-03-2023 Influenza vaccination [facility] Start: 2023 SHINGRIX VACCINE (1 of 2) SHINGRIX VACCINE (1 of 2) [facility] Start: 2023 Zoster Vaccines (1 of 2) Zoster Vaccines (1 of 2) [facility] Start: 09-02-2022 DEPRESSION ASSESSMENT DEPRESSION ASSESSMENT [facility] Start: 12-18-2021 End: 12-18-2021 Patient encounter procedure Appointment [facility] Work Phone: Start: 12-18-2021 End: 12-18-2021 Radex foot complete minimum 3 views XR FOOT 3+ VWS-RT [facility] Work Phone: Start: 02-07-2021 DIABETES SCREEN DIABETES SCREEN [facility] Start: 2018 COLOGUARD (FIT-DNA) COLOGUARD (FIT-DNA) [facility] Start: 2018 Colonoscopy COLONOSCOPY [facility] Start: 2018 COLORECTAL CANCER SCREENING COLORECTAL CANCER SCREENING [facility] Start: [address] COLONOGRAPHY [facility] Start: 2018 FECAL OCCULT BLOOD FECAL OCCULT BLOOD [facility] Start: 2018 SIGMOIDOSCOPY SIGMOIDOSCOPY [facility] Start: 01-18-2008 LIPID SCREEN LIPID SCREEN [facility] Start: 01-18-1992 DTaP/Tdap/Td Vaccines (1 - Tdap) DTaP/Tdap/Td Vaccines (1 - Tdap) [facility] Start: 01-18-1992 Urine microalbumin profile DTAP,TDAP,TD (1 - Tdap) [facility] Start: 1991 HEPATITIS C SCREENING HEPATITIS C SCREENING [facility] Start: 1991 Hepatitis C screening Hepatitis C Screening [facility] Start: 1991 HIV SCREENING HIV SCREENING [facility] Start: 1985 Depression Screening Depression Screening [facility] Start: 1974 MMR Vaccines (1 of 1 - Standard series) MMR Vaccines (1 of 1 - Standard series) [facility] Start: 1973 COVID-19 Vaccine (#1) COVID-19 Vaccine (#1) [facility] Start: 1973 HEPATITIS B (1 of 3 - 3-dose series) HEPATITIS B (1 of 3 - 3-dose series) [facility] Start: 1973 Hepatitis B Vaccines (1 of 3 - 3-dose series) Hepatitis B Vaccines (1 of 3 - 3-dose series) [facility] Start: 1973 HIV screening HIV Screening [facility] Start: 1973 Lipid panel Lipid Panel [facility] Start: 1973 Screening for malignant neoplasm of colon [facility] Free:total prostate specific antigen ratio [facility] Prostate specific Ag [Mass/volume] in Serum or Plasma [facility] Prostate Specific Ag Free [Mass/volume] in Serum or Plasma [facility] Payers Date Payer Category Payer Self-pay [id number] 2019 Unknown [id number] 2002 Unknown [id number] Unknown [id number] Unknown [id number] Unknown [id number] Unknown [id number] Social History Date Type Detail Facility Start: 04-14-2017 End: 08-20-2022 Assertion Unknown if ever smoked [facility] Work Phone: Start: 1975 Sex Assigned At Male [facility] Start: 02-19-2023 Tobacco smoking stat us NEIS Never smoked tobacco [facility] Start: 02-19-2023 Tobacco use and exposure Smokeless tobacco non-user [facility] Start: 02-19-2023 End: 02-22-2023 Alcohol intake Current non-drinker of alcohol (finding) [facility] Start: 1975 Sex Assigned At Not on file [facility] Gender identity Not on file [facility] Clinical Notes 12-18-2021 to 12-26-2023 Note Date & Type Note Facility 12-26-2023 Discharge summary Note Date/Time December 26, 2023 5:03pm [facility] [address] [place] [address] / REHABILITATION SERVICES DISCHARGE SUMMARY MR#: [id number] Acct: [id number] Name: ANGELO ALEMAN Rep #: [id number] : 1975 48 From: Toma Narayan DPT, OCS, CSCS Referring DrBin: Status: REG RCR Insurance: [facility] S[facility]F PAY INSURANCE Discharge Summary D/C summary: It has been my pleasure to treat ANGELO ALEMAN referred by LEI JACOBSON, with the diagnosis of s/p anterior discectomy and L45 fusion 09/13/23 for a totalof 16 visit(s). Discharge Date: 12/26/23 Please see the following information for a summary of their discharge status. Subjective Subjective: Golf swing at 50% in back yard. Pain is not a problem, 1/10 from lifting but it is transient. Gym exercises are going well and feels comprehensive. Sleep is OK. To doctor in March. Activities are pretty normal. Pain LB: Pain Intensity (Out of 10): 0 Overall Improvement % Improvement: 100 Objective Objective/Function: Lumbar extension still tight and mod limtied with some tightness in back but no pain, Lfexion is good with HS tightness, hips are tightin squatted position at about 75 degrees knee flexion, no pain. Walks well and without antalgia. Goals Goal 1:: ST: 0/10 pain and I appropriate HEP for LE [id number] and postural LE strength and isometric core ex Goal Progress: Goal Met Goal 2:: LT: patient able to walk and climb steps without weakness or pain reciprocally without rail Goal Progress: Goal Met Goal 3:: Plan to return to golf Goal Progress: Progressing, appropriate Goal 4:: Hike with family without pain or problems Goal Progress: Goal Met, in city. Goal 5:: basck oswestry 5 or lless Goal Progress: Goal Met Goal 6:: Add safely other machine exercises in gym and I without problems Goal Progress: Goal Met Plan Plan: d/c D/C Information Discharge Comments: Pt will continue 3x/week in gym, 6x week home stretch and strength and will f/u with doctor at appropriate time. d/c sentence: If there are questions or concerns regarding this patient's physical therapy, please feel free to call me at [phone]. Thank you for the referral of thispatient. Sincerely, Toma Narayan, TEODORA, OCS, CSCS Balance/Gait/Functional tests Balance/Special Test Scores Functional Gait Assessment Score: 28 % Disability: 6.6700 Oswestry Low Back Score: 4 Improvement % Improvement: 100 <Electronically signed by Toma Narayan DPT, OCS, CSCS> 12/26/23 1703 CC: Marianna Doll DO; LEI JACOBSON ~ EBG Signed [facility] Work Phone: 1(432) 296-389601-05-2024 Telephone encounter Note* Telephone Encounter - Yany Guzman MA - 09/06/2023 10:52 AM EST Received approved authorization for Zandra with Dr. Cain's office. Inpatient Auth# [id number] Surgical Auth[facility] [id number] [id number] Miscellaneous Notes* Telephone Encounter - Yany Guzman MA - 09/06/2023 10:52 AM EST Received approved authorization for Zandra with Dr. Cain's office. Inpatient Auth# [id number] Surgical Auth# [id number] * Telephone Encounter - Yany Guzman MA - 08/23/2023 2:38 PM EST SURGERY: CCOC FOR DR. MAGUI CAIN OPEN & CLOSE ALIF L4-5 DATE OF SURGERY: 09/13/2023 AT 9:00AM AUTH #: ZANDRA PINEDA WITH DR. CAIN'S OFFICE IS OBTAINING AUTH FOR DR. CAIN AND DR. CURRY. PENDING documented in this [facility]12-22-2023 Telephone encounter Note* Telephone Encounter - Yany Guzman MA - 08/23/2023 2:38 PM EST SURGERY: CCOC FOR DR. MAGUI CAIN OPEN & CLOSE ALIF L4-5 DATE OF SURGERY: 09/13/2023 AT 9:00AM AUTH #: ZANDRA PINEDA WITH DR. CAIN'S OFFICE IS OBTAINING AUTH FOR DR. CAIN AND DR. CURRY. [id number] Discharge summary Author Toma Narayan [facility] July 23, 2023 4:16pm Note Date/Time July 23, 2023 4:16pm [facility] Physical Therapy Health[address] [place] [address] / REHABILITATION SERVICES DISCHARGE SUMMARY MR#: [id number] Acct: [id number] Name: ANGELO ALEMAN Rep #: [id number] : 1975 48 From: Toma Narayan DPT, OCS, CSCS Referring : Status: REG RCR Insurance: [facility] SELF PAY INSURANCE Discharge Summary D/C summary: It has been my pleasure to treat ANGELO ALEMAN referred by LEI JACOBSON, with the diagnosis of Congenital stenosis of lumbar for a total of 18 visit(s). Discharge Date: 07/23/23 Please see the following information for a summary of their discharge status. Subjective Subjective: Feel alot stronger. Still pain with sitting and getting up to 7/10 in am and if sits too long. Moving around feels good. Avoids bending alot. Sleeping is OK but getting up is a problem. HEP: doing all the stretching and strengthening at home. To [facility] in one week. may have another surgery/fusion which patient welcomes if it will get rid of pain. Pain LBP and R leg: Pain Intensity (Out of 10): 0 Overall Improvement % Improvement: 60 Objective Objective/Function: Sit to stand is normal but has L deviaiton upon standing from seated position. Posture is still crummy without support. A few extensionin standing seem to get rid of his shift but back immediately if sits 5 minutes. most bothersome in morning. Back ext still hesitant but able and improves his ROM. Back flexion is still very hesitant and not improving. SB are not painful. Goals Goal 1:: patient walk into therapy without a L deviation Goal Progress: Not Progressing Goal 2:: pain in LB 75% better and 1/10 at worst Goal Progress: Progressing Goal 3:: I appropriate strength DLS and posture to manage condition Goal Progress: Goal Met Goal 4:: Pt able to get out of bed and chair without hesitation Goal Progress: Not Progressing Goal 5:: oswestry score 4 or better Goal Progress: Not Progressing Goal 6:: flex FW to touch toes without deviation or hesitation. Goal Progress: Not Progressing Plan Plan: d/c, pt to continue HEP of ext to loosen up and strength, f/u with doctor regarding other options due to instability in disc in back. D/C Information Discharge Comments: to doctor for next medical step. d/c sentence: If there are questions or concerns regarding this patient's physical therapy, please feel free to call me at [phone]. Thank you for the referral of thispatient. Sincerely, Toma Narayan, DPT, OCS, CSCS Balance/Gait/Functional tests Balance/Special Test Scores Oswestry Low Back Score: 13 Improvement % Improvement: 60 <Electronically signed by Toma Narayan DPT, OCS, CSCS> 07/23/23 1616 CC: Marianna Doll DO; LEI JACOBSON ~ EBG Signed [facility] Work Phone: 1(205) 981-328206-30-2023 NoteHNO ID: [id number] Author: Hali Cifuentes PA-C Service: ? Author Type: Physician Lamp Replacer Type: Progress Notes Filed: 03/07/2023 4:28 PM Note Text: In lieu of an in-person visit due to COVID-19 concerns, a distance health visit was performed on the patient. Patient is aware that I am not fully able to assess symptoms and do a full physical examination including vital signs assessment at this time. Patient consents to this encounter. FOLLOW UP VISIT - ENDOSCOPY NAME: Angelo Floyd [facility] CLINIC NO.: [id number] DATE OF SERVICE: 03/01/2023 : 1975 REFERRING PHYSICIAN: Marianna Doll DO Angelo is a patient I am following for screening colonoscopy. Dr. Neri performed lower endoscopy on 02/22/23. The patient was found to have non-bleeding internal hemorrhoids, and a small rectal polyp which was removed. Pathology demonstrated: FINAL DIAGNOSIS A. Rectum, polyp, polypectomy: - Tubular adenoma (see comment). Diagnosis Comment A. This case was reviewed with Dr. Spears, who concurs. The patient notes no complaints since the procedure. Assessment IMPRESSION: s/p colonoscopy with polypectomy-small adenomatous polyp PLAN: The operative findings and pathology report were reviewed with the patient, and the patient has had the opportunity to ask questions and have questions answered. If the patient notes any problems or changes in bowel function, the patient should contact me immediately. Otherwise I recommend follow up endoscopy in 5 years for surveillance Patient verbalized understanding of all above and agreed with the plan Diagnoses: (D36.9) Tubular adenoma (primary encounter diagnosis) I spent a total of 21 minutes on the date of the service which included preparing to see the patient, completing clinical documentation, obtaining and/or reviewing separately obtained history, counseling and educating the patient/family/caregiver, independently interpreting results (not separately reported), and communicating results to the patient/family/caregiver. [facility] History of Present illness Narrative* Hali Cifuentes PA-C - 03/01/2023 10:54 AM EDT In lieu of an in-person visit due to COVID-19 concerns, a distance health visit was performed on the patient. Patient is aware that I am not fully able to assess symptoms and do a full physical examination including vital signs assessment at this time. Patient consents to this encounter. FOLLOW UP VISIT - ENDOSCOPY NAME: Angelo Floyd [facility] NO.: [id number] DATE OF SERVICE: 03/01/2023 : 1975 REFERRING PHYSICIAN: Marianna Doll DO Angelo is a patient I am following for screening colonoscopy. Dr. Neri performed lower endoscopy on 02/22/23. The patient was found to have non-bleeding internal hemorrhoids, and a small rectal polyp which was removed. Pathology demonstrated: FINAL DIAGNOSIS A. Rectum, polyp, polypectomy: - Tubular adenoma (see comment). Diagnosis Comment A. This case was reviewed with Dr. Spears, who concurs. The patient notes no complaints since the procedure. Assessment IMPRESSION: s/p colonoscopy with polypectomy-small adenomatous polyp PLAN: The operative findings and pathology report were reviewed with the patient, and the patient has hadthe opportunity to ask questions and have questions answered. If the patient notes any problems or changes in bowel function, the patient should contact me immediately. Otherwise I recommend follow up endoscopy in 5 years for surveillance Patient verbalized understanding of all above and agreed with the plan Diagnoses: (D36.9) Tubular adenoma (primary encounter diagnosis) I spent a total of 21 minutes on the date of the service which included preparing to see the patient, completing clinical documentation, obtaining and/or reviewing separately obtained history, counseling and educating the patient/family/caregiver, independently interpreting results (not separately r eported), and communicating results to the patient/family/caregiver. Hali Cifuentes PA-C documented in this encounterHol[facility] NoteHNO ID: [id number] Author: Hali Cifuentes PA-C Service: ? Author Type: Physician Lamp Replacer Type: Progress Notes Filed: 02/19/2023 1:30 PM Note Text: HISTORY AND PHYSICAL Angelo Floyd Ash 1975 REFERRING PHYSICIAN: No ref. provider found CHIEF COMPLAINT: Consult (colonoscopy) HPI: The patient is a 48 year old male referred for endoscopy. Angelo notes no colon complaints. Patient denies any change in bowel habits, weight changes, blood in stools, black tarry stools or abdominal pain. Denies family history of colon issues. The patient notes no upper GI complaints. Angelo has not undergone prior endoscopy. Patient denies chest pain, shortness of breath or recent hospitalizations. Denies problems with sedation in the past. History reviewed. No pertinent past medical history. PAST SURGICAL HISTORY Procedure Laterality Date PAST SURGICAL HISTORY OF 03/2017 right jaw surgery PT ED ORTHOPAEDICS 2017 and 2019 VASECTOMY 2010 No current outpatient medications on file. No current facility-administered medications for this visit. ALLERGIES: Patient has no known allergies. PERSONAL HISTORY: Social History Tobacco Use Smoking status: Never Smokeless tobacco: Never Vaping Use Vaping Use: Never used Substance Use Topics Alcohol use: No Drug use: Never FAMILY HISTORY: FAMILY HISTORY Problem Relation Age of Onset Asthma Mother No Known Problems Father REVIEW OF SYMPTOMS: The review of systems data was entered by the nurse and reviewed by ri Nursing Notes: Kaykay Scanlon LPN 02/19/2023 1:04 PM Signed REVIEW OF SYSTEMS: General: The patient denies fatigue, denies weight loss, denies weight gain, denies feeling hot, and denies feelings of cold. Eyes: The patient denies glaucoma, denies eye injury/surgery, does not wear glasses or contacts. Ear/Nose/Throat: The patient denies allergies, denies hayfever, denies ear infections, and denies bloody noses. Cardiovascular: The patient denies chest pain, denies heart disease, denies high blood pressure,denies cardiac stent, denies prior heart attack, denies irregular heart beat, denies high cholesterol, denies poor circulation, denies heart failure, other cardiac issues, denies claudication, denies cold feet, denies peripheral arterial stent. Respiratory: The patient denies tuberculosis, denies pneumonia, denies frequent cough, denies pulmonary embolism, denies shortness of breath, and denies coughing up blood. Gastrointestinal: The patient denies difficulty swallowing, denies acid reflux, denies ulcers, denies vomiting, denies jaundice/hepatitis, denies gallbladder problems, denies black or tarry stools, denies hemorrhoids, denies bleeding from rectum, denies diverticulitis, denies constipation, denies diarrhea, denies loss of stool control, and denies hernias. Kidney/Bladder: The patient denies kidney stones, denies urine infections, and denies bloody urine. Skin: The patient denies a history of skin cancer, denies bleeding/changing moles, and denies a history of skin rash. Neurologic: The patient denies a history of epilepsy/convulsions, denies headaches, denies head/spinal injuries, and denies stroke/TIA. Psychiatric: The patient denies psychiatric medications, denies depression, and denies voices, denies substance abuse. Endocrine: The patient denies thyroid disorders, denies diabetes, and denies hormonal problems. Hematologic: The patient denies a history of bruising, denies bleeding, and denies anemia, denies blood clots. Infections: The patient denies a history of measles and mumps, denies rheumatic fever, and denies sexually transmitted diseases. Musculoskeletal: The patient denies back pain/injury, NOTES back problems, denies sciatica, denies knee/foot trouble, denies arthritis, or denies gout. When was patient's last Mammogram screening? N/A Last Colonoscopy: no prior Kaykay Scanlon LPN I have confirmed and edited as necessary, the PFSH and ROS obtained by others. Hali Cifuentes PA-C PHYSICAL EXAMINATION: General: The patient is 48 year old male, well nourished, well hydrated in no acute distress. The patient is oriented to time, place, and person. VITALS: Blood pressure 118/82, pulse 84, temperature 36.3 ?C (97.4 ?F), height 195.6 cm (6' 5), weight 125.9 kg (277 lb 9.6 oz), SpO2 98 %. Body mass index is 32.92 kg/m?. HEENT: Normal cephalic, ataumatic, pupils are equally round, sclera are anicteric, mucous membranes are moist, oropharynx is clear. Neck has no masses, asymmetry or lymphadenopathy. Respiratory: Clear to auscultation and percussion. Normal respiratory excursion and pattern. Cardiac: Examination is regular rate and rhythm. Normal S1/S2 Abdominal exam: Soft, nontender, with no palpable masses. No hepatosplenomegaly. No palpable hernias. Extremities: no clubbing, cyanosis or edema. No adenopathy. LABORATORY VALUES: As Noted RADIOLOGIC STUDIES: As Noted Asse (more content not included)...[facility]06-20-[facility] History of Present illness Narrative* Hali Cifuentes PA-C - 02/19/2023 1:08 PM EDT HISTORY AND PHYSICAL Angelo Aleman 1975 REFERRING PHYSICIAN: No ref. provider found CHIEF COMPLAINT: Consult (colonoscopy) HPI: The patient is a 48 year old male referred for endoscopy. Angelo notes no colon complaints. Patient denies any change in bowel habits, weight changes, blood in stools, black tarry stools or abdominal pain. Denies family history of colon issues. The patient notes no upper GI complaints. Angelo has not undergone prior endoscopy. Patient denies chest pain, shortness of breath or recent hospitalizations. Denies problems with sedation in the past. History reviewed. No pertinent past medical history. PAST SURGICAL HISTORY Procedure Laterality Date PAST SURGICAL HISTORY OF 03/2017 right jaw surgery PT ED ORTHOPAEDICS 2017 and 2019 VASECTOMY 2009 No current outpatient medications on file. No current facility-administered medications for this visit. ALLERGIES: Patient has no known allergies. PERSONAL HISTORY: Social History Tobacco Use Smoking status: Never Smokeless tobacco: Never Vaping Use Vaping Use: Never used Substance Use Topics Alcohol use: No Drug use: Never FAMILY HISTORY: FAMILY HISTORY Problem Relation Age of Onset Asthma Mother No Known Problems Father REVIEW OF SYMPTOMS: The review of systems data was entered by the nurse and reviewed by ri Nursing Notes: Kaykay Scanlon LPN 02/19/2023 1:04 PM Signed REVIEW OF SYSTEMS: General: The patient denies fatigue, denies weight loss, denies weight gain, denies feeling hot, and denies feelings of cold. Eyes: The patient denies glaucoma, denies eye injury/surgery, does not wear glasses or contacts. Ear/Nose/Throat: The patient denies allergies, denies hayfever, denies ear infections, and denies bloody noses. Cardiovascular: The patient denies chest pain, denies heart disease, denies high blood pressure,denies cardiac stent, denies prior heart attack, denies irregular heart beat, denies high cholesterol, denies poor circulation, denies heart failure, other cardiac issues, denies claudication, denies cold feet, denies peripheral arterial stent. Respiratory: The patient denies tuberculosis, denies pneumonia, denies frequent cough, denies pulmonary embolism, denies shortness of breath, and denies coughing up blood. Gastrointestinal: The patient denies difficulty swallowing, denies acid reflux, denies ulcers, denies vomiting, denies jaundice/hepatitis, denies gallbladder problems, denies black or tarry stools, denies hemorrhoids, denies bleeding from rectum, denies diverticulitis, denies constipation, denies diarrhea, denies loss of stool control, and denies hernias. Kidney/Bladder: The patient denies kidney stones, denies urine infections, and denies bloody urine. Skin: The patient denies a history of skin cancer, denies bleeding/changing moles, and denies a history of skin rash. Neurologic: The patient denies a history of epilepsy/convulsions, denies headaches, denies head/spinal injuries, and denies stroke/TIA. Psychiatric: The patient denies psychiatric medications, denies depression, and denies voices, denies substance abuse. Endocrine: The patient denies thyroid disorders, denies diabetes, and denies hormonal problems. Hematologic: The patient denies a history of bruising, denies bleeding, and denies anemia, denies blood clots. Infections: The patient denies a history of measles and mumps, denies rheumatic fever, and denies sexually transmitted diseases. Musculoskeletal: The patient denies back pain/injury, NOTES back problems, denies sciatica, denies knee/foot trouble, denies arthritis, or denies gout. When was patient's last Mammogram screening? N/A Last Colonoscopy: no prior Kaykay Scanlon LPN I have confirmed and edited as necessary, the PFSH and ROS obtained by others. Hali Cifuentes PA-C PHYSICAL EXAMINATION: General: The patient is 48 year old male, well nourished, well hydrated in no acute distress. The patient is oriented to time, place, and person. VITALS: Blood pressure 118/82, pulse 84, temperature 36.3 C (97.4 F), height 195.6 cm (6' 5), weight 125.9 kg (277 lb 9.6 oz), SpO2 98 %. Body mass index is 32.92 kg/m . HEENT: Normal cephalic, ataumatic, pupils are equally round, sclera are anicteric, mucous membranesare moist, oropharynx is clear. Neck has no masses, asymmetry or lymphadenopathy. Respiratory: Clear to auscultation and percussion. Normal respiratory excursion and pattern. Cardiac: Examination is regular rate and rhythm. Normal S1/S2 Abdominal exam: Soft, nontender, with no palpable masses. No hepatosplenomegaly. No palpable hernias. Extremities: no clubbing, cyanosis or edema. No adenopathy. LABORATORY VALUES: As Noted RADIOLOGIC STUDIES: As Noted Assessment IMPRESSION: encounter for screening colonoscopy PLAN: I have reviewed my findings with the surgeon. Will plan for lower endoscopy. We discussed therisks and benefits of the planned endoscopy. I have informed the patient that complications can occur including failure to complete the endoscopy and perforation. The patient had the opportunity to ask questions concerning the planned endoscopy. My staff has also explained the procedure to the patient in understandable terms and has given the patient printed material concerning the procedure. Thepatient freely consents to surgery. I plan to use Golytely bowel preparation I have explained to the patient the difference between IV conscious sedation and MAC anesthesia - and I have offered either, according to the patient's wishes. I have explained that with IV conscioussedation there is no anesthesia provider available and therefore there is a limitation of the amount of IV medications that can be given and that the patient may wake up in the middle of the procedure and/or experience pain/discomfort during the procedure. Further discussion was done and the patient was given the opportunity to ask questions and all questions were answered. The patient chooses IVconscious sedation Diagnoses: (Z12.11) Encounter for screening for malignant neoplasm of colon (primary encounter diagnosis) Consultation requested by Dr. Marianna Doll DO for an opinion regarding screening colonoscopy. Myfinal recommendations will be communicated back to the requesting physician by way of shared Medical record or letter to requesting physician via US mail. Hali Cifuentes PA-C documented in this encounterHol[facility]06-[facility] Nurse Note* Kaykay Scanlon LPN - 02/19/2023 1:02 PM EDT REVIEW OF SYSTEMS: General: The patient denies fatigue, denies weight loss, denies weight gain, denies feeling hot, and denies feelings of cold. Eyes: The patient denies glaucoma, denies eye injury/surgery, does not wear glasses or contacts. Ear/Nose/Throat: The patient denies allergies, denies hayfever, denies ear infections, and denies bloody noses. Cardiovascular: The patient denies chest pain, denies heart disease, denies high blood pressure,denies cardiac stent, denies prior heart attack, denies irregular heart beat, denies high cholesterol, denies poor circulation, denies heart failure, other cardiac issues, denies claudication, denies cold feet, denies peripheral arterial stent. Respiratory: The patient denies tuberculosis, denies pneumonia, denies frequent cough, denies pulmonary embolism, denies shortness of breath, and denies coughing up blood. Gastrointestinal: The patient denies difficulty swallowing, denies acid reflux, denies ulcers, denies vomiting, denies jaundice/hepatitis, denies gallbladder problems, denies black or tarry stools, denies hemorrhoids, denies bleeding from rectum, denies diverticulitis, denies constipation, denies diarrhea, denies loss of stool control, and denies hernias. Kidney/Bladder: The patient denies kidney stones, denies urine infections, and denies bloody urine. Skin: The patient denies a history of skin cancer, denies bleeding/changing moles, and denies a history of skin rash. Neurologic: The patient denies a history of epilepsy/convulsions, denies headaches, denies head/spinal injuries, and denies stroke/TIA. Psychiatric: The patient denies psychiatric medications, denies depression, and denies voices, denies substance abuse. Endocrine: The patient denies thyroid disorders, denies diabetes, and denies hormonal problems. Hematologic: The patient denies a history of bruising, denies bleeding, and denies anemia, denies blood clots. Infections: The patient denies a history of measles and mumps, denies rheumatic fever, and denies sexually transmitted diseases. Musculoskeletal: The patient denies back pain/injury, NOTES back problems, denies sciatica, denies knee/foot trouble, denies arthritis, or denies gout. When was patient's last Mammogram screening? N/A Last Colonoscopy: no prior Kaykay Scanlon LPN documented in this encounterHol[facility]04-18-2022 Instructions* Instruction Description Start Date CompletedPatient advised to follow-up with Primary Care Physician for BMI management. [facility] Work Phone: Evaluation noteThere may be information available, but it has not been provided by the sender.[facility] Work Phone: Evaluation noteNo assessment information available [facility] Work Phone: Evaluation note* Diagnosis Encounter for screening for malignant neoplasm of colon- Primary Special screening for malignant neoplasms, colon documented in this encounter [facility]* Diagnosis Tubular adenoma- Primary Benign neoplasm of unspecified site documented in this encounter [facility] Summary Purpose Family History No Family History Records FoundNo Family History Records FoundNo Family History Records FoundThere may be information available, but it has not been provided by the sender.No Family History Records FoundNo Family History Records FoundNo Family History Records Found Advance Directives No Advanced Directives Records Found Advance Directive Response Recorded Date/ Time Living Will Yes April 14 7 6:08am Power of Roll Form Operator Yes [place] 13th, 2 017 6:08am Advance Directive Response Recorded Date/ Time Living Will Yes April 14, 201 7 5:08am Power of Roll Form Operator Yes April 14 2 017 5:08am Chief Complaint Chief Complaint Description Start Date right foot pain Preliminary chief co mplaint data, not yet signed by the author as of Chief Complaint and Reason for Visit Chief Complaint EQUINUS CONTRACTURE OF R ANKLE. RX HERE. Chief Complaint EORDER Chief Complaint EORDER SPONDYLOSIS PT HAS RX REQUESTS TOMA Chief Complaint STENOSIS OF LUMBAR S PINE. RX HERE Additional Source Comments (unrecognized sect ion and content) No Status Records FoundNo Status Records FoundNo Status Records FoundNo Status Records FoundNo Status Records FoundNo Status Records Found INFORMATION SOURCE (unrecogn ized section and content) DATE CREATED AUTHOR 02/26/2018 [facility] DATE CREATED AUTHOR AUTHOR'S ORGANIZ ATION 03/06/2018 [facility] DATE CREATED AUTHOR AUTHOR'S ORGANIZ ATION 05/11/2020 [facility] DATE CREATED AUTHOR AUTHOR'S ORGANIZ ATION 03/08/2023 [facility] DATE CREATED AUTHOR AUTHOR'S ORGANIZ ATION 09/08/2023 [facility] DATE CREATED AUTHOR AUTHOR'S ORGANIZ ATION 03/05/2024 [facility] Reason for Visit (unrecogniz ed section and content) Reason For Visit Description New/Est - 1st visit with physician 12/18 Preliminary reason f or visit data, not yet signed by the author as of right foot pain Reason Comments Consult colonoscopy Reason Comments Follow Up Reason Comments Surgery Scheduling 09/13/23 Goals (unrecognized section and content) Goals may be documented in a n alternate sectionGoals may be documented in an alternate sectionGoals may be documented in an alternate sectionGoals may be documented in an alternate sectionGoals may be documented in an alternate sectionGoals may be documented in an alternate section Source Comments (unrecognize d section and content) In the event this informatio n is protected by the Federal Confidentiality of Alcohol and Drug Abuse Patient Records regulations: The Federal rules restrict any use of the information to criminally investigate or prosecute any alcohol or drug abuse patient.[facility] the event this information is protected by the Federal Confidentiality of Alcohol and Drug Abuse Patient Records regulations: The Federal rules restrict any use of the information to criminally investigate or prosecute any alcohol or drug abuse patient.[facility] Care Teams (unrecognized sec tion and content) Irrigation Engineer Relationship Specialty Start Date End Date Marianna Doll DO [address] [facility] [address] [place] [address] PCP - General Family Medicine 02/04/23 Irrigation Engineer Relationship Specialty Start Date End Date Marianna Doll DO [address] [facility] [address] [place], [place] [id number] PCP - General Family Medicine 02/04/23 Team Status: Active Member Role Status Dates Dr. Bobby Cain MD Family Provider Active Marianna Doll DO Primary Care Provider Active Team Status: Inactive Member Role Status Dates Marianna Doll DO Primary Care Provider, Attending Provider Active Team Status: Inactive Member Role Status Dates Marianna Doll DO Primary Care Provi santos, Attending Provider, Referring Provider Active Team Status: Inactive Member Role Status Dates Marianna Doll DO Primary Care Provider Active INDIRA ODOM Attending Provider, Referring Prov ider Active Irrigation Engineer Relationship Specialty Start Date End Date Bobby Cain MD [address] [facility] [address] [place] [address] PCP - General 06/20/20 Team Status: Inactive Member Role Status Dates Marianna Doll , Primary Care Provider Active INDIRA ODOM Attending Provider, Referring Prov ider Active INDIRA CATHERINE Active FOR RECORDS PERTAINING TO PATIENTS WHO ARE OR HAVE BEEN ENROLLED IN A CHEMICAL DEPENDENCY/SUBSTANCEABUSE PROGRAM, SOME INFORMATION MAY BE OMITTED. This clinical summary was aggregated from multiple sources. Caution should be exercised in using it in the provision of clinical care. This summary normalizes information from multiple sources, and as a consequence, information in this document may materially change the coding, format and clinical context of patient data. In addition, data may be omitted in some cases. CLINICAL DECISIONS SHOULD BE BASED ON THE PRIMARY CLINICAL RECORDS. [employer] provides no warranty or guarantee of the accuracy or completeness of information in this document.
== END | disposition home or self-care (01) ==
LOC: MFPLAB 11:53
PROVIDERS: PCP Family Medicine; Referring Provider Family Medicine; Visit Provider Family Medicine
DX: Z00.00 Encounter for general adult medical examination without abnormal findings (principal); Z13.220 Encounter for screening for lipoid disorders; Z13.1 Encounter for screening for diabetes mellitus; R97.20 Elevated prostate specific antigen [PSA]
CPT/HCPCS: 36415; 80053; 80061; 84153; 85025; G0103